=== PATIENT | male | born 1985 | race African-American/Black ===

== ENCOUNTER 2022-11-06 14:35 | Outpatient (OUT) | payer MEDICARE, MEDICAID, SELFPAY ==
[2022-11-06 15:44] LABS: Valproic Acid 74.5 ug/mL (50.0-100.0)
== END 2022-11-06 14:36 | disposition home or self-care (01) ==
LOC: LAB 14:40
PROVIDERS: PCP Family Medicine; Visit Provider Family Medicine
DX: R11.10 Vomiting, unspecified (principal); R53.83 Other fatigue; R68.89 Other general symptoms and signs
CPT/HCPCS: 36415; 80164

== ENCOUNTER 2022-11-15 07:57 | Outpatient (OUT) | payer MEDICARE, MEDICAID, SELFPAY ==
[2022-11-15 08:26] LABS: Basophils Percent Auto 0.3 % (0.2-2.0); Eosinophils Absolute Auto 0.1 10^3/uL (0.0-0.7); Eosinophils Percent Auto 1.5 % (0.9-7.0); Hematocrit 38.5 % (42.0-54.0); Hemoglobin 13.2 g/dL (14.0-18.0); Immature Granulocytes Abs Auto 0.01 10^3/uL (0.00-0.03); Immature Granulocytes Pct Auto 0.3 % (0.0-0.5); Lymphocytes Absolute Auto 2.1 10^3/uL (1.2-3.8); Lymphocytes Percent Auto 53.5 % (20.5-60.0); Mean Corpuscular HGB Conc 34.3 g/dL (29.9-35.2); Mean Corpuscular Hemoglobin 30.4 pg (25.9-34.0); Mean Corpuscular Volume 88.7 fL (80.0-94.0); Mean Platelet Volume 9.7 fL (9.5-13.5); Monocytes Absolute Auto 0.4 10^3/uL (0.3-0.8); Neutrophils Absolute Auto 1.3 10^3/uL (1.4-6.5); Neutrophils Percent Auto 33.4 % (43.0-75.0); Platelet Count 152 10^3/uL (150-450); Red Blood Count 4.34 10^6/uL (4.70-6.10); Red Cell Distribution Width 14.6 % (11.0-15.0); White Blood Count 3.9 10^3/uL (4.0-11.0)
[2022-11-15 09:35] LABS: Alanine Aminotransferase 27 U/L (16-63); Albumin Globulin Ratio 0.8; Albumin Level 3.1 g/dL (3.4-5.0); Alkaline Phosphatase 60 U/L (46-116); Anion Gap 9.6; Aspartate Amino Transferase 24 U/L (15-37); BUN Creatinine Ratio 6.5; Bilirubin Total 0.4 mg/dL (0.2-1.0); Carbon Dioxide 32.4 mmol/L (21.0-32.0); Chloride 103 mmol/L (98-107); Estimated GFR (African America >60 (>=60); Estimated GFR (Non-African Ame >60 (>=60); Globulin 3.9 g/dL; Glucose 91 mg/dL (74-106); Sodium 141 mmol/L (136-145)
== END 2022-11-15 07:58 | disposition home or self-care (01) ==
LOC: LAB 07:58
PROVIDERS: PCP Family Medicine; Visit Provider Family Medicine
DX: Z79.899 Other long term (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 (principal); K59.09 Other constipation
CPT/HCPCS: 36415; 80053; 85025

== ENCOUNTER 2022-11-28 10:05 | Outpatient (REF) | payer MEDICARE, MEDICAID, SELFPAY ==
[2022-11-28 11:25] LABS: Bilirubin Urine NEGATIVE (NEGATIVE); Blood Urine NEGATIVE (NEGATIVE); Clarity Urine CLEAR (CLEAR); Color Urine YELLOW (YELLOW); Glucose Urine UA NEGATIVE (NEGATIVE); Ketones Urine TRACE mg/dL (NEGATIVE); Leukocyte Esterase Urine NEGATIVE (NEGATIVE); Nitrite Urine NEGATIVE (NEGATIVE); Protein Urine NEGATIVE (NEG/TRACE)
[2022-11-28 11:29] LABS: Urine Microscopic Indicated NO
== END 2022-11-28 10:06 | disposition home or self-care (01) ==
LOC: LAB 10:05
PROVIDERS: PCP Family Medicine; Visit Provider Family Medicine
DX: R35.0 Frequency of micturition (principal); R39.15 Urgency of urination; R82.90 Unspecified abnormal findings in urine
CPT/HCPCS: 81003

== ENCOUNTER 2023-11-13 06:34 | Outpatient (OUT) | payer MEDICARE, MEDICAID, SELFPAY ==
[2023-11-13 06:54] LABS: Basophils Percent Auto 0.3 % (0.2-2.0); Eosinophils Percent Auto 0.6 % (0.9-7.0); Hematocrit 41.8 % (42.0-54.0); Hemoglobin 13.8 g/dL (14.0-18.0); Lymphocytes Absolute Auto 2.5 10^3/uL (1.2-3.8); Lymphocytes Percent Auto 39.8 % (20.5-60.0); Mean Corpuscular Hemoglobin 29.7 pg (25.9-34.0); Mean Corpuscular Volume 89.9 fL (80.0-94.0); Mean Platelet Volume 10.2 fL (9.5-13.5); Monocytes Absolute Auto 0.6 10^3/uL (0.3-0.8); Monocytes Percent Auto 8.8 % (1.7-12.0); Neutrophils Absolute Auto 3.1 10^3/uL (1.4-6.5); Neutrophils Percent Auto 50.5 % (43.0-75.0); Platelet Count 202 10^3/uL (150-450); Red Blood Count 4.65 10^6/uL (4.70-6.10); Red Cell Distribution Width 13.1 % (11.0-15.0); White Blood Count 6.2 10^3/uL (4.0-11.0)
[2023-11-13 07:41] LABS: Alanine Aminotransferase 18 U/L (16-63); Albumin Level 3.6 g/dL (3.4-5.0); Alkaline Phosphatase 120 U/L (46-116); Aspartate Amino Transferase 18 U/L (15-37); BUN Creatinine Ratio 7.6; Bilirubin Total 0.4 mg/dL (0.2-1.0); Calcium 8.8 mg/dL (8.5-10.1); Carbon Dioxide 29.7 mmol/L (21.0-32.0); Chloride 104 mmol/L (98-107); Cholesterol 136 mg/dL (<=200); Estimated GFR (African America >60 (>=60); Estimated GFR (Non-African Ame >60 (>=60); Globulin 3.5 g/dL; Glucose 101 mg/dL (74-106); HDL Cholesterol 45 mg/dL (40-60); Potassium 3.7 mmol/L (3.5-5.1); Sodium 143 mmol/L (136-145); Total Protein 7.1 g/dL (6.4-8.2); Triglycerides 85 mg/dL (<=150)
== END 2023-11-13 06:35 | disposition home or self-care (01) ==
LOC: LAB 06:34
PROVIDERS: PCP Family Medicine; Visit Provider Family Medicine
DX: F31.9 Bipolar disorder, unspecified (principal); Z79.899 Other long term (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
CPT/HCPCS: 36415; 80053; 80061; 82607; 83540; 85025

== ENCOUNTER 2024-03-10 14:04 | Emergency (ER) | payer MEDICARE, MEDICAID, SELFPAY ==
[2024-03-10] VITALS (45 sets, daily range): BP systolic 100–137; BP diastolic 64–89; PULSE 51–86; TEMP 35.7–36.6; O2SAT 78–100; BMI 25.1
--- NOTE | 2024-03-10 16:04 | ECG_ITS ---
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
--- NOTE | 2024-03-10 16:04 | XR_ITS ---
The [address] [address] Patient Name: RENA RUSH MRN: [id number] date: 1985 Sex: M Assigned Patient Location: ER Current Patient Location: ER Accession/Order Number: [id number] Exam Date: 03/10/2024 16:42 Report Date: 03/10/2024 17:38 At the request of: TAMMY GANNON Procedure: XR chest 1V EXAM: XR chest 1V at 1635 hours HISTORY: shaking COMPARISON: None. TECHNIQUE: AP supine portable chest x-ray FINDINGS: The heart is not enlarged and the vasculature is not distended. There is mild elevation of the left hemidiaphragm. No acute infiltrate, effusion or pneumothorax is identified. The osseous structures are grossly intact. XR/XR chest 1V IMPRESSION: No acute infiltrate or evidence of cardiac decompensation. Electronically authenticated by: DEMOND HATCH Date: 03/10/2024 17:38
--- NOTE | 2024-03-10 16:04 | CT_ITS ---
The [address] [address] Patient Name: RENA RUSH MRN: [id number] date: 1985 Sex: M Assigned Patient Location: ER Current Patient Location: ER Accession/Order Number: [id number] Exam Date: 03/10/2024 16:42 Report Date: 03/10/2024 17:06 At the request of: TAMMY GANNON Procedure: CT head/brain wo con EXAM: CT head/brain wo con HISTORY: Shaking episodes COMPARISON: None. TECHNIQUE: Axial CT scans through the head were obtained without IV contrast administration. Dose reduction techniques were achieved by using: automated exposure control and/or adjustment of mA and /or kV according to patient size and/or use of iterative reconstruction technique. FINDINGS: There is no acute intracranial hemorrhage or abnormal extra-axial fluid collection. No mass effect or midline shift is seen. There is no evidence of large acute territorial infarction. There is no hydrocephalus. To the limit of CT, the posterior fossa appears unremarkable. The calvaria and extra cranial soft tissues are unremarkable. The visualized orbits show no abnormality. The visualized paranasal sinuses show no air-fluid level. Mastoid air cells are clear. CT/CT head/brain wo con IMPRESSION: No acute intracranial process. Electronically authenticated by: ELENA RUFFIN Date: 03/10/2024 17:06
[2024-03-10] MEDS: KETAMINE HCL 500 MG/5 ML VIAL 250 MG IM (16:16)
--- NOTE | 2024-03-10 16:36 | ED_ITS ---
HPI HPI - General Adult General Stated complaint: CHILLS, GENERAL WEAKNESS Time Seen by Provider: 03/10/24 14:47 Source: medical record Mode of arrival: ambulance Limitations: language barrier and altered mental status History of Present Illness HPI narrative: Patient is a 38-year-old male who presented to the ER today with chief complaint of a shaking episode last week and this week. Patient has a moderate to severe MRDD, patient is not verbal. Patient last week had a shaking episode that might of lasts approximate 1 or 2 minutes and this was after a fire alarm or a lot of bells, sirens, noises were going off. Patient had a recent head injury that we are aware of. Today patient was sitting at a table and had another shaking episode that lasted for approximately 1 minute. A structural steel erection supervisor who is at bedside and gives a accurate history stated that she was not with the patient today, but she came down to see the patient when it was reported he was having a shaking episode and he had no postictal phase today or last week. Patient is at his current baseline. Patient has no signs of trauma, no other acute complaints at this time. No nausea, vomiting, diarrhea. Patient is not a good eater or drinker, this is normal at baseline. No abnormal vital signs. All systems are negative except as noted/marked. All systems reviewed and otherwise negative. Nurses note and vital signs reviewed and patient is not hypoxic. General: The patient appears well and in no apparent distress. Patient is resting comfortably on cart. Patient is not toxic, lethargic, or listless. Ashley ent is nonverbal. He is at his current baseline. Skin: Warm, dry, no pallor noted. There is no rash noted. No petechiae, purpura. Head: Normocephalic, atraumatic Eye: Normal conjunctiva, no drainage, EOMI. PERRL Ears, Nose, Mouth, and Throat: oral mucosa is moist. Nares patent. Mouth without vesicles. Cardiovascular: Regular Rate and Rhythm, no murmur, gallop, rub Respiratory: Patient is in no distress, no accessory muscle use, lungs are clear to auscultation, no wheezing, rales or rhonchi Back: non-tender, no CVA tenderness bilaterally to percussion. No CT LS midline pain. No grimace was noted on patient's face with palpation. GI: no tenderness to palpation, no masses appreciated. No rebound, guarding, or rigidity noted. No distention. No grimace was noted to patient's face during palpation. Musculoskeletal: Patient has full range of motion of all of the extremities, no motor, sensory, or focal neurological deficits Neurological: A&O x1, patient is nonverbal. Psychiatric: Cooperative Related Data Allergies Allergy/AdvReac Type Severity Reaction Status Date / Time No Known Drug Allergies Allergy Verified 03/10/24 14:23 Opioid HPI Opioid Management Most Recent Opioid Data: No Data to Display Exam Constitutional Vital Signs, click to edit/add: Last Vital Signs Temp 97.8 F 03/10/24 17:28 Pulse 80 03/10/24 18:15 Resp 14 03/10/24 17:14 BP 107/80 03/10/24 18:15 Pulse Ox 98 03/10/24 18:15 O2 Del Method Room Air 03/10/24 14:23 O2 Flow Rate 2 03/10/24 17:14 Course Vital Signs Vital signs: Vital Signs Temperature 96.2 F L 03/10/24 14:23 Pulse Rate 80 03/10/24 14:23 Respiratory Rate 16 03/10/24 14:23 Blood Pressure 100/64 03/10/24 14:23 Pulse Oximetry 100 03/10/24 14:23 Oxygen Delivery Method Room Air 03/10/24 14:23 Temperature 97.8 F 03/10/24 17:28 Pulse Rate 80 03/10/24 18:15 Respiratory Rate 14 03/10/24 17:14 Blood Pressure 107/80 03/10/24 18:15 Pulse Oximetry 98 03/10/24 18:15 Oxygen Delivery Method Room Air 03/10/24 14:23 Oxygen Delivery Flow Rate 2 03/10/24 17:14 Medical Decision Making MDM Narrative Medical decision making narrative: I initially spoke to the caregiver at bedside as a structural steel erection supervisor of the intermediate at [employer]. I then spoke to Mehrdad, patient's brother, guardian. It was decided with shared decision making that we would perform conscious sedation, with ketamine, and perform CT of the brain, x-ray, lab work to make sure not missing any new acute findings that would cause shaking episodes last week and today. TRISHA Ortez; spoke to Mehrdad as well, was a second verbal witness on the phone did allow conscious sedation and she spoke to Mehrdad as well Procedure note. Conscious sedation. The patient was placed on IV, O2, monitor, and pulse ox. Respiratory therapy was at bedside. Risk and benefits of procedure were gone over, paperwork was signed. Patient is aware of the risk of , disability, possible new fracture, neurovascular compromise, bleeding, infection, pain, unable to reduce the dislocation, unforeseen complications, respiratory difficulty or distress, airway compromise. Patient signed consent form. Patient was premedicated with 250 mg of intramuscular ketamine. CT of the brain, chest x-ray, urine, lab work showed no acute findings. 1830 at a conversation with patient's brother/guardian Mehrdad at discharge. Patient will follow-up with PCP for additional testing. Patient had no complications during procedure, patient was never hypoxic. Patient was on IV O2 monitor pulse ox and carbon oxide detector. Procedure went very well with IV, lab work, urine and CAT scan and imaging. Lab Data Lab results reviewed: Yes I reviewed the patient's lab results Labs: Lab Results 03/10/24 03/10/24 Range/Units 16:39 17:00 WBC 8.8 (4.0-11.0) 10^3/uL RBC 4.93 (4.70-6.10) 10^6/uL Hgb 14.8 (14.0-18.0) g/dL Hct 42.7 (42.0-54.0) % MCV 86.6 (80.0-94.0) fL MCH 30.0 (25.9-34.0) pg MCHC 34.7 (29.9-35.2) g/dL RDW 12.3 (11.0-15.0) % Plt Count 245 (150-450) 10^3/uL MPV 10.0 (9.5-13.5) fL Neut % (Auto) 76.9 H (43.0-75.0) % Lymph % (Auto) 17.3 L (20.5-60.0) % [place] % (Auto) 5.4 (1.7-12.0) % Eos % (Auto) 0.1 L (0.9-7.0) % Baso % (Auto) 0.2 (0.2-2.0) % Neut # (Auto) 6.8 H (1.4-6.5) 10^3/uL Lymph # (Auto) 1.5 (1.2-3.8) 10^3/uL [place] # (Auto) 0.5 (0.3-0.8) 10^3/uL Eos # (Auto) 0.0 (0.0-0.7) 10^3/uL Baso # (Auto) 0.0 (0.0-0.1) 10^3/uL Abs Immat Gran (auto) 0.01 (0.00-0.03) 10^3/uL Imm/Tot Granulo (auto) 0.1 (0.0-0.5) % Sodium 141 (136-145) mmol/L Potassium 4.3 (3.5-5.1) mmol/L Chloride 105 (98-107) mmol/L Carbon Dioxide 24.0 (21.0-32.0) mmol/L Anion Gap 16.3 BUN 16.0 (7.0-18.0) mg/dL Creatinine 1.12 (0.70-1.30) mg/dL Est GFR ( Amer) >60 (>=60 mL/min/1.73m^2) Est GFR (Non-Af Amer) >60 (>=60 mL/min/1.73m^2) BUN/Creatinine Ratio 14.3 Glucose 105 (74-106) mg/dL Calcium 9.4 (8.5-10.1) mg/dL Total Bilirubin 0.4 (0.2-1.0) mg/dL AST 25 (15-37) U/L ALT 15 L (16-63) U/L Alkaline Phosphatase 110 (46-116) U/L Total Creatine Kinase 71 (39-308) U/L Total Protein 7.2 (6.4-8.2) g/dL Albumin 3.5 (3.4-5.0) g/dL Globulin 3.7 g/dL Albumin/Globulin Ratio 0.9 Lipase 19.0 (16.0-77.0) U/L Urine Color Lt. yellow (YELLOW) Urine Clarity Clear (CLEAR) Urine pH 7.0 (5.0-9.0) Ur Specific [place] 1.020 (1.005-1.025) Urine Protein Negative (NEG/TRACE) mg/dL Urine Glucose (UA) Negative (NEGATIVE) mg/dL Urine Ketones Negative (NEGATIVE) mg/dL Urine Occult Blood Negative (NEGATIVE) Urine Nitrite Negative (NEGATIVE) Urine Bilirubin Negative (NEGATIVE) Urine Urobilinogen 0.2 (0.2-1.0) EU/dL Ur Leukocyte Esterase Negative (NEGATIVE) Urine RBC None seen (0-2) #/HPF Urine WBC None seen (NONE SEEN) #/HPF Ur Squamous Epith Cells None seen (NONE/RARE) #/LPF Urine Crystals None seen (None Seen) #/HPF Urine Bacteria Trace A (NONE SEEN) #/HPF Urine Casts None seen (NONE SEEN) #/LPF Urine Mucus None seen (NONE SEEN) Imaging Data CT scan - pelvis: Radiologist's impression: ITS Impressions Chest X-Ray 03/10/24 16:04 IMPRESSION: No acute infiltrate or evidence of cardiac decompensation. Electronically authenticated by: DEMOND HATCH Date: 03/10/2024 17:[address] 03/10/24 16:04 IMPRESSION: No acute intracranial process. Electronically authenticated by: ELENA RUFFIN Date: 03/10/2024 17:06 ECG Data Attestation: I personally reviewed and interpreted this ECG as follows: (EKG interpretation. Normal sinus rhythm at 71 beats a minute. Normal axis deviation. No acute ST elevation, no acute ectopy. QTc of 374. EKG reading early repull) Discharge Plan Discharge Clinical Impression: Episode of shaking Patient Disposition: Home, Self-Care Time of Disposition Decision: 18:33 Condition: Fair Print Language: Azeri Instructions: Tremors (ED), Procedural Sedation (ED) Additional Instructions: CT of the brain, chest x-ray, urine and lab testing showed no significant findings. Follow-up with PCP for additional testing as needed. Patient had conscious sedation in the ER with ketamine today. Education was given Referrals: MARCIAL MOSS DO [Primary Care Provider] - 1 week
[2024-03-10 16:50] LABS: Basophils Percent Auto 0.2 % (0.2-2.0); Eosinophils Percent Auto 0.1 % (0.9-7.0); Hematocrit 42.7 % (42.0-54.0); Hemoglobin 14.8 g/dL (14.0-18.0); Immature Granulocytes Abs Auto 0.01 10^3/uL (0.00-0.03); Immature Granulocytes Pct Auto 0.1 % (0.0-0.5); Lymphocytes Absolute Auto 1.5 10^3/uL (1.2-3.8); Lymphocytes Percent Auto 17.3 % (20.5-60.0); Mean Corpuscular HGB Conc 34.7 g/dL (29.9-35.2); Mean Corpuscular Volume 86.6 fL (80.0-94.0); Monocytes Absolute Auto 0.5 10^3/uL (0.3-0.8); Monocytes Percent Auto 5.4 % (1.7-12.0); Neutrophils Absolute Auto 6.8 10^3/uL (1.4-6.5); Neutrophils Percent Auto 76.9 % (43.0-75.0); Platelet Count 245 10^3/uL (150-450); Red Blood Count 4.93 10^6/uL (4.70-6.10); Red Cell Distribution Width 12.3 % (11.0-15.0); White Blood Count 8.8 10^3/uL (4.0-11.0)
[2024-03-10 17:14] LABS: Alanine Aminotransferase 15 U/L (16-63); Albumin Globulin Ratio 0.9; Albumin Level 3.5 g/dL (3.4-5.0); Alkaline Phosphatase 110 U/L (46-116); Anion Gap 16.3; Aspartate Amino Transferase 25 U/L (15-37); BUN Creatinine Ratio 14.3; Bilirubin Total 0.4 mg/dL (0.2-1.0); Calcium 9.4 mg/dL (8.5-10.1); Chloride 105 mmol/L (98-107); Creatine Kinase 71 U/L (39-308); Estimated GFR (African America >60 (>=60 mL/min/1.73m^2); Estimated GFR (Non-African Ame >60 (>=60 mL/min/1.73m^2); Globulin 3.7 g/dL; Glucose 105 mg/dL (74-106); Potassium 4.3 mmol/L (3.5-5.1); Sodium 141 mmol/L (136-145); Total Protein 7.2 g/dL (6.4-8.2)
[2024-03-10 17:18] LABS: Bilirubin Urine NEGATIVE (NEGATIVE); Blood Urine NEGATIVE (NEGATIVE); Clarity Urine CLEAR (CLEAR); Color Urine LT. YELLOW (YELLOW); Glucose Urine UA NEGATIVE (NEGATIVE); Ketones Urine NEGATIVE (NEGATIVE); Leukocyte Esterase Urine NEGATIVE (NEGATIVE); Nitrite Urine NEGATIVE (NEGATIVE); Protein Urine NEGATIVE (NEG/TRACE); Urobilinogen Urine 0.2 EU/dL (0.2-1.0)
[2024-03-10 17:25] LABS: Bacteria Urine TRACE #/HPF (NONE SEEN); Cast Seen? NONE SEEN #/LPF (NONE SEEN); Crystals Seen? None Seen #/HPF (None Seen); Mucus Urine NONE SEEN (NONE SEEN); RBC Urine NONE SEEN #/HPF (0-2); Squamous Epithelial Cell Urine NONE SEEN #/LPF (NONE/RARE); WBC Urine NONE SEEN #/HPF (NONE SEEN)
== END 2024-03-10 20:30 | disposition home or self-care (01) ==
PROVIDERS: Emergency Provider Emergency Medicine; PCP Family Medicine
DX: G25.89 Other specified extrapyramidal and movement disorders (principal); F72 Severe intellectual disabilities
CPT/HCPCS: 36415; 70450; 71045; 80053; 81001; 82550; 83690; 85025; 93005; 96372; 99285

== ENCOUNTER 2024-04-08 09:05 | Outpatient (OUT) | payer MEDICARE, MEDICAID, SELFPAY ==
[2024-04-08 09:19] LABS: Basophils Percent Auto 0.4 % (0.2-2.0); Eosinophils Absolute Auto 0.1 10^3/uL (0.0-0.7); Eosinophils Percent Auto 1.1 % (0.9-7.0); Hematocrit 41.9 % (42.0-54.0); Immature Granulocytes Abs Auto 0.01 10^3/uL (0.00-0.03); Immature Granulocytes Pct Auto 0.2 % (0.0-0.5); Lymphocytes Absolute Auto 2.3 10^3/uL (1.2-3.8); Lymphocytes Percent Auto 43.3 % (20.5-60.0); Mean Corpuscular HGB Conc 33.4 g/dL (29.9-35.2); Mean Corpuscular Hemoglobin 30.3 pg (25.9-34.0); Mean Corpuscular Volume 90.7 fL (80.0-94.0); Mean Platelet Volume 9.9 fL (9.5-13.5); Monocytes Absolute Auto 0.5 10^3/uL (0.3-0.8); Monocytes Percent Auto 9.3 % (1.7-12.0); Neutrophils Absolute Auto 2.4 10^3/uL (1.4-6.5); Neutrophils Percent Auto 45.7 % (43.0-75.0); Platelet Count 199 10^3/uL (150-450); Red Blood Count 4.62 10^6/uL (4.70-6.10); Red Cell Distribution Width 13.4 % (11.0-15.0); White Blood Count 5.3 10^3/uL (4.0-11.0)
--- OUTSIDE RECORDS SUMMARY | 2024-04-08 09:28 | XMS_ITS | CCD ---
Author Organization [facility] Care Team Providers Care Relocation Associate Name Role Phone LOAN ETIENNE I Admitting Unavailable LOAN ETIENNE I Attending Unavailable MARCIAL MOSS Primary Care Unavailable PROVIDER, UNKNOWN Attending Unavailable PROVIDER, UNKNOWN Admitting Unavailable Uday Quinteros DDS SDixon Unavailable Rigo Kevin DDS Unavailable [phone] Francisco Del Rio DDS Unavailable Uday Quinteros DDS S. Unavailable Rigo Kevin DDS Unavailable Francisco Del Rio DDS Unavailable ISA, DR MARCIAL Byrd Admitting Unavailable MOSS, DR MARCIAL Byrd Attending Unavailable MOSS, DR MARCIAL Byrd Consulting Unavailable MOSS, DR MARCIAL Byrd Primary Care Unavailable MOSS, DR MARCIAL Byrd Admitting Unavailable MOSS, DR MARCIAL Byrd Attending Unavailable MOSS, DR MARCIAL Byrd Primary Care Unavailable MOSSMARCIAL Primary Care Physician [phone] Diya Mcginnis Attending Unavaila Diya Abdi Attending Unavaila Diya Abdi Attending Unavaila ble Diya Mcginnis Attending Unavaila EAGLE Tenorio Attending Unavailable EAGLE WILKES Attending Unavailable Medications Current Medications Medication Drug Class(es) Dates Sig (Normalized) Sig (Original) aluminum hydroxide 200 mg / magnesium hydroxide 200 mg / simethicone 25 mg chewable tablet (1 source) Start: 07-30-2023 Mintox Plus oral tablet, chewable Refill(s) 0 Start Date: 07/30/23 Status: Ordered 12 hr buPROPion hydrochloride 100 mg extended release oral tablet (1 source) Aminoketone Start: 07-30-2023 buPROPion 100 mg ER Tab Refills(s) 0 Start Date: 07/30/23 Status: Ordered cloNIDine (2 sources) Central alpha-2 Adrenergic Agonist Start: 09-10-2009 clonidine BID, Refills(s) 0 Start Date: 09/10/09 Status: Ordered dicyclomine hydrochloride 10 mg oral capsule (1 source) Anticholinergic Start: 01-01-2023 End: 01-15-2023 take 1 capsule by mouth four times daily dicyclomine 10 mg Cap 10 mg = 1 cap(s), Oral, QID, X 14 day(s), # 56 cap(s), Refills(s) 0 Start Date: 01/01/23 Stop Date: 01/15/23 Status: Ordered Guanfacine (2 sources) Central alpha-2 Adrenergic Agonist Start: 09-10-2009 guanfacine Oral, Once a day (at bedtime), Refills(s) 0 Start Date: 09/10/09 Status: Ordered haloperidol 20 mg oral tablet (1 source) Typical Antipsychotic Start: 07-30-2023 haloperidol 20 mg oral tablet Refills(s) 0 Start Date: 07/30/23 Status: Ordered ibuprofen 600 mg oral tablet (2 sources) Nonsteroidal Anti-inflammatory Drug Start: 10-27-2009 take 1 tablet by mouth every six hours as needed for pain ibuprofen (MOTRIN) 600 MG tablet Take 1 Tab by mouth every 6 hours as needed for Pain. 30 3 10/27/2009 Active Enulose (2 sources) Osmotic Laxative Start: 09-10-2009 Enulose 10 gram, Oral, Daily, Refills(s) 0 Start Date: 09/10/09 Status: Ordered linaclotide 0.29 mg oral capsule (1 source) Guanylate Cyclase-C Agonist Start: 07-30-2023 Linzess 290 mcg oral capsule Refills(s) 0 Start Date: 07/30/23 Status: Ordered lisdexamfetamine dimesylate 70 mg oral capsule (1 source) Central Nervous System Stimulant Start: 07-30-2023 take 1 capsule by mouth once daily in the morning Vyvanse 70 mg oral capsule 70 mg, 1 cap(s), Oral, qAM, Refill(s) 0 Start Date: 07/30/23 Status: Ordered Loratadine (2 sources) Start: 09-10-2009 loratadine 10 mg, Refills(s) 0 Start Date: 09/10/09 Status: Ordered Metoprolol (2 sources) beta-Adrenergic Elías Start: 09-10-2009 metoprolol Refills(s) 0 Start Date: 09/10/09 Status: Ordered montelukast 10 mg oral tablet (1 source) Leukotriene Receptor Antagonist Start: 07-30-2023 montelukast 10 mg Tab Refills(s) 0 Start Date: 07/30/23 Status: Ordered Naltrexone (2 sources) Opioid Antagonist Start: 09-10-2009 naltrexone Refills(s) 0 Start Date: 09/10/09 Status: Ordered Zyprexa (2 sources) Atypical Antipsychotic Start: 09-10-2009 Zyprexa Refills(s) 0 Start Date: 09/10/09 Status: Ordered omeprazole 40 mg delayed release oral capsule (2 sources) Proton Pump Inhibitor Start: 01-01-2023 take 1 capsule by mouth once daily omeprazole 40 mg Cap-DR 40 mg = 1 cap(s), Oral, Daily, # 90 cap(s), Refills(s) 3 Start Date: 01/01/23 Status: Ordered POLYETHYLENE GLYCOL 3350 (2 sources) Osmotic Laxative Start: 09-10-2009 polyethylene glycol 3350 17 gram, Oral, Daily, Refill(s) 0 Start Date: 09/10/09 Status: Ordered Start: 09-10-2009 polyethylene g lycol 3350 17 gram, Oral, Daily, 0 Start Date: 09/10/09 Status: Ordered prochlorperazine 10 mg oral tablet (1 source) Phenothiazine Start: 07-30-2023 Compazine 10 m g oral tablet Refills(s) 0 Start Date: 07/30/23 Status: Ordered QUEtiapine 400 mg oral tablet (1 source) Atypical Antipsychotic Start: 07-30-2023 Seroque l 400 mg oral tablet Refills(s) 0 Start Date: 07/30/23 Status: Ordered Sertraline (2 sources) Serotonin Reuptake Inhibitor Start: 09-10-2009 sertraline Oral, Daily, Refills(s) 0 Start Date: 09/10/09 Status: Ordered Problems Problem Classification Problem Date Documented Da te Episodic/Chronic Abdominal hernia (3 sources) Diaphragmatic hernia; Translations: [Diaphragmatic hernia without obstruction or gangrene] Onset: 3 Episodic Anxiety disorders (2 sources) Obsessive-compulsive disorder 07-25-2013 Chronic Asthma (2 sources) Asthma 07-25-2013 Chronic Attention-deficit, conduct, and disruptive behavior disorders (2 sources) Attention deficit hyperactivity disorder 09-10-2009 Chronic Developmental disorders (2 sources) Intellectual functioning disability 07-25-2013 Chronic Disorders usually diagnosed in infancy, childhood, or adolescence (2 sources) Autistic disorder; Translations: [Autism spectrum disorder] 07-25-2013 Chronic Esophageal disorders (4 sources) Gastroesophageal reflux disease without esophagitis; Translations: [Gastro-esophageal reflux disease without esophagitis] Onset: 3 Chronic Essential hypertension (2 sources) Hypertensive disorder 07-25-2013 Chronic Gastroduodenal ulcer (except hemorrhage) (2 sources) Peptic ulcer 07-25-2013 Chronic Nausea and vomiting (3 sources) Vomiting; Translations: [Vomiting, unspecified] Onset: 3 Episodic Other aftercare (4 sources) Other jail (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; Translations: [OTH ECONOMIC FORECASTER CURRENT DRUG THERAPY] Onset: 3 Episodic Other gastrointestinal disorders (3 sources) Burping; Translations: [Eructation] Onset: 3 Episodic Other nutritional; endocrine; and metabolic disorders (2 sources) Loss of appetite; Translations: [Anorexia] Onset: 3 Episodic Other nutritional; endocrine; and metabolic disorders (1 source) Decrease in appetite 07-30-2023 Episodic Other upper respiratory disease (2 sources) Seasonal allergy 09-10-2009 Chronic Unclassified (2 sources) CHRONIC LEFT INFECTED GROIN CYST; Translations: [CHRONIC LEFT INFECTED GROIN CYST] Onset: 9 Results Test Name Value Interpretation Reference Range Facility Ambulatory Visit Summaryon 0 07-30-2023 Ambulatory Visit Summary RENA RUSH :1985 Visit Date:07/30/2023 Ambulatory Visit Instructions Your Diagnosis GERD [Gastroesophageal reflux disease] Poor appetite Vomiting Belching Your Care Team Attending Physician - Diya Mcginnis MD Primary Care Physician - MARCIAL MOSS DO This Is Your Medications List Al hydroxide/Mg hydroxide/simethicone (Mintox Plus oral tablet, chewable) buPROPion (buPROPion 100 mg ER Tab) clonidine guanfacine haloperidol (haloperidol 20 mg oral tablet) lactulose (Enulose) linaclotide (Linzess 290 mcg oral capsule) lisdexamfetamine (Vyvanse 70 mg oral capsule) loratadine metoprolol montelukast (montelukast 10 mg Tab) naltrexone olanzapine (Zyprexa) omeprazole (omeprazole 40 mg Cap-DR) polyethylene glycol 3350 prochlorperazine (Compazine 10 mg oral tablet) quetiapine (Seroquel 400 mg oral tablet) sertraline Discharge Vitals Height 180 cm Height 71 in Weight 68 kg Weight 149.6 lb BMI 20.99 Medications What How Much When Instructions Unchanged Al hydroxide/ Mg hydroxide/ simethicone (Mintox Plus oral tablet, chewable) Unchanged buPROPion (buPROPion 100 mg ER Tab) Unchanged clonidine 2 times a day Unchanged guanfacine By Mouth Once a day (at bedtime) Unchanged haloperidol (haloperidol 20 mg oral tablet) Unchanged lactulose (Enulose) 10 Gram By Mouth Every day Unchanged linaclotide (Linzess 290 mcg oral capsule) Unchanged lisdexamfetamine (Vyvanse 70 mg oral capsule) 1 Capsules By Mouth Once a day (in the morning) Unchanged loratadine 10 Milligram Unchanged metoprolol Unchanged montelukast (montelukast 10 mg Tab) Unchanged naltrexone Unchanged olanzapine (Zyprexa) Unchanged omeprazole (omeprazole 40 mg Cap-DR) 1 Capsules By Mouth Every day Unchanged polyethylene glycol 3350 17 Gram By Mouth Every day Unchanged prochlorperazine (Compazine 10 mg oral tablet) Unchanged quetiapine (Seroquel 400 mg oral tablet) Unchanged sertraline By Mouth Every day Allergies No Known Allergies Problems Ongoing - Any problem that you are currently receiving treatment for. ADHD - Attention deficit disorder with hyperactivity ASTHMA Autistic disorder Belching GERD [Gastroesophageal reflux disease] Hiatal hernia HYPERTENSION Mental retardation Obsessive compulsive disorder Peptic ulcer disease Poor appetite Seasonal allergy Vomiting Patient Survey You may receive a survey via text or e-mail asking about your office visit. Please share your experience with us by completing your survey. We appreciate your feedback and thank you for choosing us for your care. Jeff Lantigua [facility] Gastroenterology Office/Clin ic Noteon 07-30-2023 Gastroenterology Office/Clinic Note Chief Complaint GERD, poor appetite, HH, vomiting and belching HPI Staff Patient is a(n) 38 year old male who presents today for a(n) 7 month follow up. Still having poor appetite and weight loss. His diet is mechanical soft and they feel that the texture is not appealing. Patient does not do well with physical touch so I did not attempt blood pressure today for the safety of staff and patient. Last visit 01/01/23 w/Dr. Mcginnis: Assessment/Plan 1. GERD [Gastroesophageal reflux disease] (K21.9: Gastro-esophageal reflux disease without esophagitis) We will start omeprazole, it is very hard to tell if he is really having heartburn or not 2. Hiatal hernia (K44.9: Diaphragmatic hernia without obstruction or gangrene) 3. Poor appetite (R63.0: Anorexia) Improved significantly, most likely was due to underlying gastroenteritis That is resolving Bentyl as needed PPI We discussed imaging and EGD, but given the significant improvement, will likely not be needed He had recent CBC and CMP that were all normal locally 4. Vomiting (R11.10: Vomiting, unspecified) Resolved 5. Belching (R14.2: Eructation) Resolved History of Present Illness per healthcare medicine worker, depends on the kind of food whether he likes it or not, the brother also reported to all regurgitated food since he was a kid which not changed Omeprazole seems to be helping No new symptoms no issues he is eating fine Review of Systems PHQ Score Initial Depression Screen Score: 0 SCORE Physical Exam Vitals & Measurements HT: 71 in HT: 180 cm WT: 68 kg WT: 149.6 lb BMI: 20.99 Assessment/Plan 1. GERD [Gastroesophageal reflux disease] (K21.9: Gastro-esophageal reflux disease without esophagitis) Hard to tell, will keep omeprazole, no issues, currently eating well 2. Poor appetite (R63.0: Anorexia) Improved 3. Vomiting (R11.10: Vomiting, unspecified) Resolved, brother reported he always had regurgitation since he was a kid which not changed, but if he eats the food he likes he does well 4. Belching (R14.2: Eructation) Follow-up No qualifying data available Problem List/Past Medical History Ongoing ADHD - Attention deficit disorder with hyperactivity ASTHMA Autistic disorder Belching GERD [Gastroesophageal reflux disease] Hiatal hernia HYPERTENSION Mental retardation Obsessive compulsive disorder Peptic ulcer disease Poor appetite Seasonal allergy Vomiting Historical No qualifying data Medications buPROPion 100 mg ER Tab clonidine, BID, Not taking Compazine 10 mg oral tablet Enulose, 10 gm, Oral, Daily, Not taking guanfacine, Oral, Once a day (at bedtime) haloperidol 20 mg oral tablet Linzess 290 mcg oral capsule loratadine, 10 mg metoprolol Mintox Plus oral tablet, chewable montelukast 10 mg Tab naltrexone omeprazole 40 mg Cap-DR, 40 mg= 1 cap(s), Oral, Daily, 3 refills polyethylene glycol 3350, 17 gm, Oral, Daily Seroquel 400 mg oral tablet sertraline, Oral, Daily, Not taking Vyvanse 70 mg oral capsule, 70 mg= 1 cap(s), Oral, qAM Zyprexa, Not taking Allergies No Known Allergies Social History Alcohol - Denies Alcohol Use, 01/01/2023 Substance Abuse - Denies Substance Abuse, 01/01/2023 Tobacco - Denies Tobacco Use, 01/01/2023 Immunizations Vaccine Date Status Comments diphtheria/pertussis, acel/tetanus adult 06/25/2023 Recorded influenza virus vaccine, inactivated 05/08/2023 Recorded influenza virus vaccine, inactivated 03/01/2022 Recorded SARS-CoV-2 (COVID-19) [id number] 03/01/2022 Recorded 2022-12-06: TPVALL influenza virus vaccine, inactivated 03/09/2021 Recorded SARS-CoV-2 (COVID-19) mRNA BNT-162b2 vax 03/09/2021 Recorded 2022-12-06: TPV3 SARS-CoV-2 (COVID-19) mRNA BNT-162b2 vax 06/15/2020 Recorded 2022-12-06: TPVAL SARS-CoV-2 (COVID-19) mRNA BNT-162b2 vax 05/25/2020 Recorded 2022-12-06: TPVAL influenza virus vaccine, inactivated 02/18/2020 Recorded influenza virus vaccine, inactivated 03/19/2019 Recorded influenza virus vaccine, inactivated 02/20/2018 Recorded influenza virus vaccine, inactivated 03/07/2017 Recorded influenza virus vaccine, inactivated 03/04/2015 Recorded diphtheria/pertussis, acel/tetanus adult 01/30/2013 Recorded influenza, whole 03/05/2008 Recorded influenza virus vaccine, inactivated 03/13/2006 Recorded Td(adult) unspecified formulation 01/28/2003 Recorded measles/mumps/rubella virus vaccine 01/03/2000 Recorded hepatitis B pediatric vaccine 07/03/1995 Recorded hepatitis B pediatric vaccine 01/25/1995 Recorded hepatitis B pediatric vaccine 12/21/1994 Recorded poliovirus vaccine, inactivated 01/27/1993 Recorded DTaP, unspecified formulation 01/27/1993 Recorded poliovirus vaccine, inactivated 04/02/1990 Recorded Hib, unspecified formulation 04/02/1990 Recorded poliovirus vaccine, inactivated 01/18/1989 Recorded measles/mumps/rubella virus vaccine 01/18/1989 Recorded poliovirus vaccine, inactivated 1987 Recorded (more content not included)... [facility] Comment on above: Result Comment: Elec tronically Signed By: Ras BARBOUR, Diya Baxter\.br\Date and Time Signed: 07/30/23 11:52 EDT [facility] 07-29 [facility] Records [id number] .00TIFF [facility] Ambulatory Visit Summaryon 0 01-01-2023 Ambulatory Visit Summary RENA RUSH :1985 Visit Date:01/01/2023 Ambulatory Visit Instructions Your Diagnosis GERD [Gastroesophageal reflux disease] Hiatal hernia Poor appetite Vomiting Belching Your Care Team Attending Physician - Ras BARBOUR, Diya Baxter Primary Care Physician - MARCIAL MOSS DO This Is Your Medications List clonidine dicyclomine (dicyclomine 10 mg Cap) guanfacine lactulose (Enulose) loratadine metoprolol naltrexone olanzapine (Zyprexa) omeprazole (omeprazole 40 mg Cap-DR) polyethylene glycol 3350 sertraline [Image Removed: STOP]Stop taking these medications esomeprazole (Nexium) ranitidine Discharge Vitals Height 180 cm Height 71 in Weight 71.4 kg Weight 157.08 lb BMI 22.04 What to do next You Need to Complete the Following CBC w/ Auto Diff, Blood, Routine collect, 01/01/23, Order for future visit, Lab Collect, Poor appetite, Not Required, Print Label By Order Location Comprehensive Metabolic Panel, Blood, Routine collect, 01/01/23, Order for future visit, Lab Collect, Poor appetite, Not Required, Print Label By Order Location Medications What How Much When Instructions New dicyclomine (dicyclomine 10 mg Cap) 1 Capsules By Mouth 4 times a day Duration: 14 Days Printed Prescription New omeprazole (omeprazole 40 mg Cap-DR) 1 Capsules By Mouth Every day Refills: 3 Printed Prescription Unchanged clonidine 2 times a day Unchanged guanfacine By Mouth Once a day (at bedtime) Unchanged lactulose (Enulose) 10 Gram By Mouth Every day Unchanged loratadine 10 Milligram Unchanged metoprolol Unchanged naltrexone Unchanged olanzapine (Zyprexa) Unchanged polyethylene glycol 3350 17 Gram By Mouth Every day Unchanged sertraline By Mouth Every day What When Comments Stop Taking esomeprazole (Nexium) Every day Stop Taking ranitidine Allergies No Known Allergies Problems Ongoing - Any problem that you are currently receiving treatment for. ADHD - Attention deficit disorder with hyperactivity ASTHMA Autistic disorder GERD [Gastroesophageal reflux disease] Hiatal hernia HYPERTENSION Mental retardation Obsessive compulsive disorder Peptic ulcer disease Seasonal allergy Normal [facility] Gastroenterology Office/Clin ic Noteon 01-01-2023 Gastroenterology Office/Clinic Note Chief Complaint GERD, HH, poor appetite, vomiting, belching HPI Staff Patient is a 37 year old male who was referred by Isa for GERD, HH, vomiting, belching and refusing to eat. Patient is non-verbal and has brother with him today to discuss POC. Has been going on for about a month. Appetite has gotten slightly better in the last week. (2 out of 3 meals in the last week). Did not retrieve vitals d/t patient being agitated and aggressive today. EGD 03/04/2013 @ [facility]: 1. Biopsies taken from the small bowel. 2. Diffuse gastritis which is mild degree, biopsy taken for histology. Pathology: SPECIMEN A : SMALL BOWEL, BIOPSY: SMALL INTESTINAL TYPE MUCOSA DEMONSTRATING NO SIGNIFICANT HISTOPATHOLOGIC FEATURES THE FEATURES OF SPRUE ARE NOT IDENTIFIED SPECIMEN B : STOMACH, BIOPSY: MILD CHRONIC INACTIVE GASTRITIS WITH FOCAL FEATURES OF REACTIVE TYPE GASTROPATHY HELICOBACTER PYLORI MICROORGANISMS ARE NOT IDENTIFIED Repeat EGD done at [facility] 08/06/2014. EGD: Retropharyngeal area was grossly normal appearing. Esophagus: normal. TERTIARY CONTRACTIONS WERE SEEN Stomach: Fundus: abnormal: SMALL POLYP WAS BIOPSIES SMALL AMOUNT OF RETAINED FOOD WAS SEEN Body: abnormal: ABOVE AND GASTRITIS Antrum: abnormal: MODERATE GASTRITIS WAS BIOPSIED Pathology: 1. STOMACH, BIOPSY (ANTRUM): - MILD CHRONIC GASTRITIS. 2. STOMACH, BIOPSY (POLYP): - FUNDIC GLAND POLYP. Labs completed at outside facility on 11/15/22. Low: WBC, RBC, Hg, Hct History of Present Illness He has severe underlying autism, therefore, history was very limited and obtained from brother and career services coordinator 2 weeks ago he had decreased appetite, but now improved 80% in the last week Has normal bm, no v/f/c No alarming symptoms, overall he is improving significantly Review of Systems Could not be obtained Physical Exam Vitals & Measurements HT: 71 in HT: 180 cm WT: 71.4 kg WT: 157.08 lb BMI: 22.04 Could not be obtained Assessment/Plan 1. GERD [Gastroesophageal reflux disease] (K21.9: Gastro-esophageal reflux disease without esophagitis) We will start omeprazole, it is very hard to tell if he is really having heartburn or not 2. Hiatal hernia (K44.9: Diaphragmatic hernia without obstruction or gangrene) 3. Poor appetite (R63.0: Anorexia) Improved significantly, most likely was due to underlying gastroenteritis That is resolving Bentyl as needed PPI We discussed imaging and EGD, but given the significant improvement, will likely not be needed He had recent CBC and CMP that were all normal locally 4. Vomiting (R11.10: Vomiting, unspecified) Resolved 5. Belching (R14.2: Eructation) Resolved Follow-up No qualifying data available Problem List/Past Medical History Ongoing ADHD - Attention deficit disorder with hyperactivity ASTHMA Autistic disorder GERD [Gastroesophageal reflux disease] Hiatal hernia HYPERTENSION Mental retardation Obsessive compulsive disorder Peptic ulcer disease Seasonal allergy Historical No qualifying data Medications clonidine, BID Enulose, 10 gm, Oral, Daily guanfacine, Oral, Once a day (at bedtime) loratadine, 10 mg metoprolol naltrexone Nexium, Oral, Daily polyethylene glycol 3350, 17 gm, Oral, Daily ranitidine sertraline, Oral, Daily Zyprexa Allergies No Known Allergies Social History Alcohol - Denies Alcohol Use, 01/01/2023 Substance Abuse - Denies Substance Abuse, 01/01/2023 Tobacco - Denies Tobacco Use, 01/01/2023 Immunizations Vaccine Date Status Comments influenza virus vaccine, inactivated 03/01/2022 Recorded SARS-CoV-2 (COVID-19) [id number] 03/01/2022 Recorded 2022-12-06: TPVALL influenza virus vaccine, inactivated 03/09/2021 Recorded SARS-CoV-2 (COVID-19) mRNA BNT-162b2 vax 03/09/2021 Recorded 2022-12-06: TPV3 SARS-CoV-2 (COVID-19) mRNA BNT-162b2 vax 06/15/2020 Recorded 2022-12-06: TPVAL SARS-CoV-2 (COVID-19) mRNA BNT-162b2 vax 05/25/2020 Recorded 2022-12-06: TPVAL influenza virus vaccine, inactivated 02/18/2020 Recorded influenza virus vaccine, inactivated 03/19/2019 Recorded influenza virus vaccine, inactivated 02/20/2018 Recorded influenza virus vaccine, inactivated 03/07/2017 Recorded influenza virus vaccine, inactivated 03/04/2015 Recorded diphtheria/pertussis, acel/tetanus adult 01/30/2013 Recorded influenza, whole 03/05/2008 Recorded influenza virus vaccine, inactivated 03/13/2006 Recorded Td(adult) unspecified formulation 01/28/2003 Recorded measles/mumps/rubella virus vaccine 01/03/2000 Recorded hepatitis B pediatric vaccine 07/03/1995 Recorded hepatitis B pediatric vaccine 01/25/1995 Recorded hepatitis B pediatric vaccine 12/21/1994 Recorded poliovirus vaccine, inactivated 01/27/1993 Recorded DTaP, unspecified formulation 01/27/1993 Recorded poliovirus vaccine, inactivated 04/02/1990 Recorded Hib, unspecified formulation 04/02/1990 Recorded poliovirus vacci (more content not included)... Normal [facility] Comment on above: Result Comment: Elec tronically Signed By: Ras BARBOUR, Diya Baxter\.br\Date and Time Signed: 01/01/23 09:14 EDT Historical Records Officeon 12-06-2022 Historical Records Office [id number] .[id number]:127 Normal [facility] Historical Records Office [id number] .00CD:127 Normal [facility] Historical Records Office [id number] .00CD:127 Normal [facility] Physician Referralon 023 Physician Referral [id number] .00CD:127 Normal [facility] Physician Referral [id number] .00CD:127 Normal [facility] DEPAKENE/ VALPROIC ACIDon DEPAKENE 64.0 ug/ml Normal 50.0-100.0 [facility] Comment on above: Performed By: #### V ALP #### [facility] [address] [address] [address] Madiha Medina Progress Noteson 09-23-2021 [employer] Authentication Interface Message Text ----- Thursday, September 23, 2021 at 1:00:26 PM ----- ----- Provider: [id number] Irene -- Clinic: [place] ----- [facility], Pt is ready for tx. Pt presents for examination. Pt is ID and non-verbal. Pt is aggressive and patient care provider was taken to the back room to keep pt away from others. Pt is edentulous and Dr. Bose examined the gums and did not see of feel any signs of infection. Advised to return for exams on as need basis. Bhakti MICHELLE/Dr. Bose [place]. EXAM ----- Signed on Thursday, September 23, 2021 at 4:02:34 PM ----- ----- Provider: [id number] Azam Dinero DMD -- Clinic: [place] ----- Normal [facility] Surgical Pathologyon 019 Surgical Pathology (NOTE) [id number] [facility] ANATOMIC PATHOLOGY [address] [place] [id number] SURGICAL PATHOLOGY CONSULTATION Patient Name: RENA RUSH [facility] Rec: [id number] Path Number: [id number] Collected: 05/30/2018 Received: 05/31/2018 Reported: 06/03/2018 15:31 -- Diagnosis -- SKIN TISSUES, EXCISION (LEFT GROIN): - RUPTURED EPIDERMAL CYST WITH MARKED INFLAMMATORY REACTION. Jessi Rudd M.D. Electronically Signed Out [facility]/06/03/2018 Clinical Information Pre-op Diagnosis: CHRONIC LEFT INFECTED GROIN CYST Operative Findings: LEFT GROIN MASS Operation Performed: GROIN EXPLORATION Source of Specimen 1: LEFT GROIN MASS Gross Description [facility] [place] LEFT GROIN MASS Fragments of brown gonzáles skin and subcutaneous tissue with areas of granularity, 2.8 x 2.2 x 0.5 cm. in aggregate. Entirely. 1cs dw Microscopic Description Microscopic examination performed. Normal [facility] Comment on above: Performed By: #### P PPVS #### [employer] [address] [place] [id number] Tape Folding Machine Operator: River Rudd MD Encounters Encounter Date Encounter Type Care Provider Facility Start: 01-01-2024 End: 01-01-2024 ambulatory EAGLE WILKES Not Available Start: 07-30-2023 End: 07-31-2023 ambulatory Keane Talal Sarmini [facility] Start: 07-30-2023 End: 07-30-2023 Patient encounter procedure Keane Talal Sarmini [facility] Start: 07-09-2023 End: 07-10-2023 ambulatory Keane Johnathanal Sarmini Facility:[facility] Start: 06-12-2023 End: 06-12-2023 ambulatory EAGLE WILKES Not Available Start: 01-01-2023 End: 01-02-2023 ambulatory Keane Talal Sarmini Facility:[facility] Start: 01-01-2023 End: 01-01-2023 Patient encounter procedure Diya Mcginnis [facility] Start: 12-28-2022 End: 12-29-2022 ambulatory Diya Mcginnis Facility:[facility] Start: 12-05-2022 ambulatory Diya Mcginnis Facili ty:[facility] Start: 10-11-[address] MARCIAL MOSS Fac ility:[facility] Start: 08-31-2022 End: 09-01-[address] MARCIAL MOSS Facility:[facility] Start: 08-19-2022 Letter encounter Uday Quinteros DDS Work Phone: [facility] Start: 11-19-2021 Letter encounter Uday Quinteros DDS Work Phone: [facility] Start: 09-23-2021 End: 09-26-2021 ambulatory UNKNOWN PROVIDER Facility:[facility] Start: 05-30-2018 End: 05-30-2018 Patient encounter procedure LOANJAZZ ETIENNE [facility] Procedures Date Procedure Procedure Detail Performing Clinician Start: 05-30-2018 DISCHARGE PATIENT JAMAICA PAIGE Start: 05-30-2018 SURGICAL PATHOLOGY DAPHNERenetta CARLEY Plan of Treatment Date Care Activity Detail Author Start: 2037 Shingles (RZV) Vaccine (1 of 2) Shingles (RZV) Vaccine (1 of 2) [facility] Start: 02-07-2023 End: 02-07-2023 Patient encounter procedure 02/07/2023 Procedure Visit Dentistry Jose Dinero, DMD [address] [place] [address] [facility] Start: 01-30-2023 Tetanus vaccination Tetanus (Td or Tdap) Booster [facility] Start: 2022 Lipid panel Cholesterol [facility] Start: 12-12-2021 Influenza vaccination Influenza Vaccine (#1) [facility] Start: 05-04-2021 COVID-19 Vaccine (4 - Booster for Pfizer series) COVID-19 Vaccine (4 - Booster for Pfizer series) [facility] Start: 2005 Hepatitis C screening Hepatitis C Antibody [facility] Start: 2002 HIV screening HIV Test [facility] Immunizations Immunization Date Immunization Notes Care Provider Nazanin argueta 06-25-2023 tetanus toxoid, reduced diphtheria toxoid, and acellular pertussis vaccine, adsorbed Keane Sarmini [facility] 05-08-2023 influenza virus vaccine, unspecified formulation Keane Sarmini [facility] 03-01-2022 influenza virus vaccine, unspecified formulation Keane Sarmini [facility] 03-01-2022 SARS-CoV-2 (COVID-19 ) [id number] Keane Sarmini [facility] Comment on above: Result Comment: 2022: TPVALL 03-09-2021 influenza, injectabl e, quadrivalent, preservative free Uday Butriy DDS Work Phone: [facility] 03-09-2021 SARS-CoV-2 (COVID-19 ) mRNA BNT-162b2 vax Keane Sarmini [facility] Comment on above: Result Comment: 2022: TPV3 03-09-2021 influenza virus vaccine, unspecified formulation Uday Butriy DDS Work Phone: [facility] 06-15-2020 Pfizer (12+ yrs) SARS-COV-2 (COVID-19) vaccine, mRNA, spike protein, LNP, pres. free, 30 mcg/0.3mL dose ([id number]) Uday Butriy DDS Work Phone: [facility] Comment on above: Result Comment: 2022: TPVAL 05-25-2020 Pfizer (12+ yrs) SARS-COV-2 (COVID-19) vaccine, mRNA, spike protein, LNP, pres. free, 30 mcg/0.3mL dose (CTE=167) Uday Butriy DDS Work Phone: [facility] Comment on above: Result Comment: 2022: TPVAL 02-18-2020 influenza virus vaccine, unspecified formulation Keane Sarmini [facility] 02-18-2020 influenza, injectabl e, quadrivalent, preservative free Uday Butriy DDS Work Phone: [facility] 03-19-2019 influenza virus vaccine, unspecified formulation Keane Sarmini [facility] 03-19-2019 influenza, injectabl e, quadrivalent, contains preservative Uday Butriy DDS Work Phone: [facility] 02-20-2018 influenza virus vaccine, unspecified formulation Keane Sarmini [facility] 02-20-2018 influenza, injectabl e, quadrivalent, preservative free Uday Butriy DDS Work Phone: [facility] 03-07-2017 influenza virus vaccine, unspecified formulation Keane Sarmini [facility] 03-07-2017 influenza, injectabl e, quadrivalent, contains preservative Uday Butriy DDS Work Phone: [facility] 03-04-2015 influenza virus vaccine, unspecified formulation Keane Sarmini [facility] 03-04-2015 influenza, injectabl e, quadrivalent, preservative free Uday Butriy DDS Work Phone: [facility] 01-30-2013 tetanus toxoid, reduced diphtheria toxoid, and acellular pertussis vaccine, adsorbed Uday Butriy DDS Work Phone: [facility] 03-31-2009 novel [id number], preservative-free, injectable Uday Butriy DDS Work Phone: [facility] 03-05-2008 influenza virus vaccine, whole virus Uday Butriy DDS Work Phone: [facility] 03-05-2008 influenza, whole Keane Sa rmini [facility] 03-13-2006 influenza virus vaccine, unspecified formulation Keane Sarmini [facility] 03-13-2006 influenza, seasonal, injectable Uday Butriy DDS Work Phone: [facility] 01-28-2003 TD(adult) unspecifie d formulation; Translations: [Td(adult) unspecified formulation] Uday Butriy DDS Work Phone: [facility] 01-03-2000 measles, mumps and rubella virus vaccine Uday Butriy DDS Work Phone: [facility] 07-03-1995 hepatitis B vaccine, pediatric or pediatric/adolescent dosage Uday Butriy DDS Work Phone: [facility] 01-25-1995 hepatitis B vaccine, pediatric or pediatric/adolescent dosage Uday Butriy DDS Work Phone: [facility] 12-21-1994 hepatitis B vaccine, pediatric or pediatric/adolescent dosage Uday Butriy DDS Work Phone: [facility] 01-27-1993 diphtheria, tetanus toxoids and acellular pertussis vaccine, unspecified formulation Uday Butriy DDS Work Phone: [facility] 01-27-1993 DTaP, unspecified formulation Keane Sarmini [facility] 01-27-1993 poliovirus vaccine, inactivated Uday Butriy DDS Work Phone: [facility] 01-27-1993 poliovirus vaccine, unspecified formulation Keane Sarmini [facility] 04-02-1990 diphtheria, tetanus toxoids and pertussis vaccine Uday Butriy DDS Work Phone: [facility] 04-02-1990 haemophilus influenz ae type b vaccine, conjugate unspecified formulation Uday Butriy DDS Work Phone: [facility] 04-02-1990 Hib, unspecified formulation Keane Sarmini [facility] 04-02-1990 poliovirus vaccine, inactivated Uday Butriy DDS Work Phone: [facility] 04-02-1990 poliovirus vaccine, unspecified formulation Keane Sarmini [facility] 01-18-1989 diphtheria, tetanus toxoids and pertussis vaccine Uday Butriy DDS Work Phone: [facility] 01-18-1989 measles, mumps and rubella virus vaccine Uday Butriy DDS Work Phone: [facility] 01-18-1989 poliovirus vaccine, inactivated Uday Butriy DDS Work Phone: [facility] 01-18-1989 poliovirus vaccine, unspecified formulation Keane Sarmini [facility] 1987 diphtheria, tetanus toxoids and pertussis vaccine Uday Butriy DDS Work Phone: [facility] 1987 haemophilus influenz ae type b vaccine, conjugate unspecified formulation Uday Butriy DDS Work Phone: [facility] 1987 Hib, unspecified formulation Keane Sarmini [facility] 1987 poliovirus vaccine, inactivated Uday Quinteros DDS Work Phone: [facility] 1987 poliovirus vaccine, unspecified formulation Diya Mcginnis [facility] Payers Date Payer Category Payer Medicare [id number] 2007 Medicare MEDICARE MEDICAR E PART B [id number] 2007-Present 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 1987 Unknown [id number] 1987 Unknown [id number] 1987 Unknown [id number] 1987 Unknown [id number] 1987 Unknown [id number] 1987 Unknown [id number] 1987 Unknown [id number] 1987 Unknown [id number] 1959 Medicaid [id number] 1959 Medicare [id number] Unknown [id number] Unknown [id number] Social History Date Type Detail Facility Tobacco smoking status [facility]: [facility] No Smoking Status Entered [facility] Sex Assigned At Male [facility] Functional Status Date Assessment Result Facility 07-30-2023 Functional Status N/A [facility] 01-01-2023 Functional Status N/A [facility] Evaluation + Plan note 01-01-2023 Laboratory Note Date & Type Note Facility 01-01-2023 Evaluation + Plan note Future Scheduled TestsCBC w/ Auto Diff 01/01/23Comprehensive Metabolic Panel 01/01/23 [facility] Evaluation + Plan note Laboratory Note Date & Type Note Facility Evaluation + Plan note Future Appointments Appointment Date:07/09/2023 08:45:00 AM Scheduled Provider:Diya Mcginnis MD Location:[facility] [place] [place] [facility] Appointment Type:[facility] Follow Up Future Scheduled TestsCBC w/ Auto Diff 01/01/23Comprehensive Metabolic Panel 01/01/23 [facility] Hospital course Narrative Note Date & Type Note Facility Hospital course Narrative No data available for this section [facility] Hospital Discharge instructions Note Date & Type Note Facility Hospital Discharge instructions No data available for this section [facility] Progress note Note Date & Type Note Facility Progress note No data available for this section [facility] Summary Purpose Family History No Family History Records FoundNo Family History Records FoundNo Family History Records Found No data available for this section No Family History Records FoundNo Family History Records Found Advance Directives No Advanced Directives Records FoundNo Advanced Directives Records FoundNo Advanced Directives Records FoundNo Advanced Directives Records FoundNo Advanced Directives Records Found Additional Source Comments (unrecognized sect ion and content) No Status Records FoundNo Status Records FoundNo Status Records FoundNo Status Records FoundNo Status Records Found INFORMATION SOURCE (unrecogn ized section and content) DATE CREATED AUTHOR [facility]/2018 [facility] DATE CREATED AUTHOR AUTHOR'S ORGANIZ ATION 09/29/2021 [facility] DATE CREATED AUTHOR AUTHOR'S ORGANIZ ATION 10/20/2022 [facility] DATE CREATED AUTHOR AUTHOR'S ORGANIZ ATION 07/31/2023 [facility] DATE CREATED AUTHOR AUTHOR'S ORGANIZ ATION 01/02/2024 [facility] [employer] Care Teams (unrecognized sec tion and content) Relocation Associate Relationship Specialty Start Date End Date Uday Quinteros DDS 08/15/10 Rigo Kevin DDS [address] [place] [address] 08/15/10 Francisco Del Rio DDS [address] [place] [address] Resident Dentistry 02/17/20 Relocation Associate Relationship Specialty Start Date End Date Uday Quinteros DDS 08/15/10 Rigo Kevin DDS [address] [place] [address] 08/15/10 Francisco Del Rio DDS [address] [place] [id number] Resident Dentistry 02/17/20 FOR RECORDS PERTAINING TO PATIENTS WHO ARE OR HAVE BEEN ENROLLED IN A CHEMICAL DEPENDENCY/SUBSTANCEABUSE PROGRAM, SOME INFORMATION MAY BE OMITTED. This clinical summary was aggregated from multiple sources. Caution should be exercised in using it in the provision of clinical care. This summary normalizes information from multiple sources, and as a consequence, information in this document may materially change the coding, format and clinical context of patient data. In addition, data may be omitted in some cases. CLINICAL DECISIONS SHOULD BE BASED ON THE PRIMARY CLINICAL RECORDS. [facility] provides no warranty or guarantee of the accuracy or completeness of information in this document.
[2024-04-08 10:53] LABS: Alanine Aminotransferase 24 U/L (16-63); Albumin Level 3.3 g/dL (3.4-5.0); Alkaline Phosphatase 99 U/L (46-116); Anion Gap 13.4; Aspartate Amino Transferase 14 U/L (15-37); BUN Creatinine Ratio 12.6; Bilirubin Total 0.2 mg/dL (0.2-1.0); Calcium 8.6 mg/dL (8.5-10.1); Carbon Dioxide 28.2 mmol/L (21.0-32.0); Chloride 105 mmol/L (98-107); Estimated GFR (African America >60 (>=60 mL/min/1.73m^2); Estimated GFR (Non-African Ame >60 (>=60 mL/min/1.73m^2); Globulin 3.2 g/dL; Glucose 94 mg/dL (74-106); Potassium 3.6 mmol/L (3.5-5.1); Sodium 143 mmol/L (136-145); Thyroid Stimulating Hormone 2.976 uIU/mL (0.358-3.740); Total Protein 6.5 g/dL (6.4-8.2)
[2024-04-08 12:10] LABS: Estimated Average Glucose 105 mg/dL; Glycohemoglobin A1C 5.3 % (4.5-6.2)
== END 2024-04-08 09:06 | disposition home or self-care (01) ==
LOC: LAB 09:05
PROVIDERS: PCP Family Medicine; Visit Provider Family Medicine
DX: R63.4 Abnormal weight loss (principal); K21.9 Gastro-esophageal reflux disease without esophagitis; I10 Essential (primary) hypertension; K59.00 Constipation, unspecified; Z79.899 Other long term (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; R53.83 Other fatigue; F42.8 Other obsessive-compulsive disorder; F31.89 Other bipolar disorder
CPT/HCPCS: 36415; 80053; 83036; 84443; 85025

== ENCOUNTER 2024-11-09 11:26 | Emergency (ER) | payer MEDICARE, MEDICAID, SELFPAY ==
[2024-11-09 11:28] VITALS: BP 107/71; PULSE 83; TEMP 36.3; O2SAT 100
--- OUTSIDE RECORDS SUMMARY | 2024-11-09 11:36 | XMS_ITS | CCD ---
Author Organization [facility] Care Team Providers Care Carpenter'S Assistant Name Role Phone LOAN ETIENNE I Admitting Unavailable LOAN ETIENNE I Attending Unavailable REJI MOSS Primary Care Unavailable PROVIDER, UNKNOWN Attending Unavailable PROVIDER, UNKNOWN Admitting Unavailable Uday Quinteros DDS Unavailable [phone] Rigo Kevin DDS Unavailable [phone] Eliane TIAN, Francisco Unavailable Uday Quinteros DDS Unavailable [phone] Rigo Kevin DDS Unavailable Eliane TIAN, Francisco Unavailable ISA, DR REJI Byrd Admitting Unavailable MOSS, DR REJI Byrd Attending Unavailable MOSS, DR REJI Byrd Consulting Unavailable MOSS, DR REJI Byrd Primary Care Unavailable MOSS, DR REJI Byrd Admitting Unavailable MOSS, DR REJI Byrd Attending Unavailable MOSS, DR REJI Byrd Primary Care Unavailable REJI MOSS Primary Care Physician [phone] Diya Mcginnis Attending Diya Lockwood Attending Diya Lockwood Attending Unavaila Diya Abdi Attending Reji Miller MD Primary Care Provider ALEJANDRO MICHELLE Attending Unavailable ALEJANDRO MICHELLE Attending Unavailable Medications Current Medications Medication Drug Class(es) Dates Sig (Normalized) Sig (Original) acetaminophen 325 mg oral tablet (4 sources) acetaminophen (Tylenol) 325 MG tablet every 4 (four) hours Active aluminum hydroxide 200 mg / magnesium hydroxide 200 mg / simethicone 25 mg chewable tablet (5 sources) Start: 07-30-2023 Mintox Plus oral tablet, chewable Refill(s) 0 Start Date: 07/30/23 Status: Ordered Start: 06-05-2023 take 1 tablet by neena th four times daily Mintox Plus 200-200-25 MG chewable tablet CHEW 1 TABLET BY MOUTH 4 TIMES DAILY 06/05/2023 Active bisacodyl 10 mg rectal suppository (4 sources) Stimulant Laxative bisacodyl (Du lcolax) 10 MG suppository Insert 10 mg into the rectum Active 12 hr buPROPion hydrochloride 100 mg extended release oral tablet (5 sources) Aminoketone Start: 07-30-2023 buPROPion 100 mg ER Tab Refills(s) 0 Start Date: 07/30/23 Status: Ordered Start: 06-06-2023 buPROPion (Wel lbutrin) 100 MG tablet 06/06/2023 Active cloNIDine (6 sources) Central alpha-2 Adrenergic Agonist Start: 09-10-2009 clonidine BID, Refil ls(s) 0 Start Date: 09/10/09 Status: Ordered cloNIDine (Catap res) 0.2 MG tablet 1 (one) time each day at the same time Active dicyclomine hydrochloride 10 mg oral capsule (5 sources) Anticholinergic Start: 01-19-2023 take 1 capsule by mouth four times daily as needed dicyclomine (Bentyl) 10 MG capsule TAKE ONE CAPSULE BY MOUTH FOUR TIMES A DAY NEEDED 01/19/2023 Active Start: 01-01-2023 End: 01-15-2023 take 1 capsule by mouth four times daily dicyclomine 10 mg Cap 10 mg = 1 cap(s), Oral, QID, X 14 day(s), # 56 cap(s), Refills(s) 0 Start Date: 01/01/23 Stop Date: 01/15/23 Status: Ordered 12 hr guaiFENesin 600 mg extended release oral tablet (4 sources) guaiFENesin (Muc inex) 600 MG 12 hr tablet Take 1,200 mg by mouth Active Guanfacine (3 sources) Central alpha-2 Adrenergic Agonist Start: 09-10-2009 guanfacine Oral, Once a day (at bedtime), Refills(s) 0 Start Date: 09/10/09 Status: Ordered guanFACINE (Tene x) 2 MG tablet Take by mouth Active haloperidol 20 mg oral tablet (5 sources) Typical Antipsychotic Start: 06-06-2023 haloperidol (Haldol) 20 MG tablet 06/06/2023 Active ibuprofen 600 mg oral tablet (2 sources) Nonsteroidal Anti-inflammatory Drug Start: 10-27-2009 take 1 tablet by mouth every six hours as needed for pain ibuprofen (MOTRIN) 600 MG tablet Take 1 Tab by mouth every 6 hours as needed for Pain. 30 3 10/27/2009 Active Enulose (2 sources) Osmotic Laxative Start: 09-10-2009 Enulose 10 gr am, Oral, Daily, Refills(s) 0 Start Date: 09/10/09 Status: Ordered linaclotide 0.29 mg oral capsule (5 sources) Guanylate Cyclase-C Agonist Start: 07-30-2023 Linzess 290 mcg oral capsule Refills(s) 0 Start Date: 07/30/23 Status: Ordered Start: 05-29-2023 take 1 capsule by mo ut in the morning Linzess 290 MCG capsule Take 290 mcg by mouth in the morning. 05/29/2023 Active lisdexamfetamine dimesylate 70 mg oral capsule (5 sources) Central Nervous System Stimulant Start: 07-30-2023 take 1 capsule by mouth once daily in the morning Vyvanse 70 mg oral capsule 70 mg, 1 cap(s), Oral, qAM, Refill(s) 0 Start Date: 07/30/23 Status: Ordered Loratadine (6 sources) Start: 09-10-2009 loratadine 10 mg, Refills(s) 0 Start Date: 09/10/09 Status: Ordered take 1 tablet by mouth once tanner y loratadine (Claritin) 10 MG tablet TAKE ONE TABLET BY MOUTH ONCE DAILY CLARITIN Active Metoprolol (6 sources) beta-Adrenergic Elías Start: 09-10-2009 metopr olol Refills(s) 0 Start Date: 09/10/09 Status: Ordered take 1 tablet [facility] tartrate (Lopressor) 100 MG tablet Take 100 mg by mouth in the morning and 100 mg before bedtime. Active mirtazapine 15 mg oral tablet (1 source) take 1 tablet by mouth at bedtime mirtazapine (Remeron) 15 MG tablet Take 15 mg by mouth at bedtime Active montelukast 10 mg oral tablet (5 sources) Leukotriene Receptor Antagonist Start: montelukast 10 mg Tab Refills(s) 0 Start Date: 07/30/23 Status: Ordered Naltrexone (6 sources) Opioid Antagonist Start: 0 naltrexone Refills(s) 0 Start Date: 09/10/09 Status: Ordered naltrexone (Depa de) 50 MG tablet 1 (one) time each day at the same time Active Zyprexa (2 sources) Atypical Antipsychotic Start: 09-10-2009 Zyprexa Refills(s) 0 Start Date: 09/10/09 Status: Ordered omeprazole 40 mg delayed release oral capsule (6 sources) Proton Pump Inhibitor Start: 01-01-2023 take 1 capsule by mouth once daily omeprazole 40 mg Cap-DR 40 mg = 1 cap(s), Oral, Daily, # 90 cap(s), Refills(s) 3 Start Date: 01/01/23 Status: Ordered ondansetron 4 mg oral tablet (4 sources) Serotonin-3 Receptor Antagonist ondansetron (Zofran) 4 MG tablet every 12 (twelve) hours Active polyethylene glycol 3350 33018 mg powder for oral solution (6 sources) Osmotic Laxative Start: 2023 polyethylene glycol, PEG, 3350 (Glycolax) 17 GM/SCOOP powder TAKE 17 GRAMS BY MOUTH ONCE DAILY IF NO BOWEL MOVEMENT IN 4 DAYS NEEDED 2023 Active Start: 09-10-2009 polyethylene g lycol 3350 17 gram, Oral, Daily, Refill(s) 0 Start Date: 09/10/09 Status: Ordered Start: 09-10-2009 polyethylene g lycol 3350 17 gram, Oral, Daily, 0 Start Date: 09/10/09 Status: Ordered prochlorperazine 10 mg oral tablet (5 sources) Phenothiazine Start: 06-06-2023 prochlorperazi ne (Compazine) 10 MG tablet 06/06/2023 Active QUEtiapine 400 mg oral tablet (5 sources) Atypical Antipsychotic Start: 06-06-2023 QUEtiapine (SEROquel ) 400 MG tablet 06/06/2023 Active sennosides, senior living 8.6 mg oral tablet (4 sources) sennosides (Seno nicola) 8.6 MG tablet 1 (one) time each day at the same time Active Sertraline (2 sources) Serotonin Reuptake Inhibitor Start: 09-10-2009 sertraline Oral, Odalys ly, Refills(s) 0 Start Date: 09/10/09 Status: Ordered [...] hemorrhage) (2 sources) Peptic ulcer 07-25-2013 Chronic Mycoses (2 sources) Onychomycosis due to dermatophyte ; Translations: [Tinea unguium] 01-01-2024 Episodic Nausea and vomiting (3 sources) Vomiting; Translations: [Vomiting, unspecified] Onset: 3 Episodic Other aftercare (4 sources) Other halfway (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; Translations: [OTH SHELTER CURRENT DRUG THERAPY] Onset: 3 Episodic Other connective tissue disease (4 sources) Pain in toe; Translations: [Pain in right toe(s)] 01-01-2024 Episodic Other gastrointestinal disorders (3 sources) Burping; Translations: [Eructation] Onset: 3 Episodic Other nutritional; endocrine; and metabolic disorders (2 sources) Loss of appetite; Translations: [Anorexia] Onset: 3 Episodic Other nutritional; endocrine; and metabolic disorders (1 source) Decrease in appetite 07-30-2023 Episodic Other skin disorders (2 sources) Dystrophia unguium; Translations: [Nail dystrophy] 01-01-2024 Episodic Other upper respiratory disease (2 sources) Seasonal allergy 09-10-2009 Chronic Unclassified (2 sources) CHRONIC LEFT INFECTED GROIN CYST; Translations: [CHRONIC LEFT INFECTED GROIN CYST] Onset: 9 Results Test Name Value Interpretation Reference Range Facility Ambulatory Visit Summaryon 0 07-30-2023 Ambulatory Visit Summary LUIS BAILEY :1985 Visit Date:07/30/2023 Ambulatory Visit Instructions Your Diagnosis GERD [Gastroesophageal reflux disease] Poor appetite Vomiting Belching Your Care Team Attending Physician - Diya Mcginnis MD Primary Care Physician - REJI MOSS DO This Is Your Medications List [...] Resolved History of Present Illness per healthcare surveyor helper, depends on the kind of food whether [...] virus vaccine, inactivated 03/01/2022 Recorded SARS-CoV-2 (COVID-19) [id number] 03/01/2022 Recorded 2022-12-06: TPVALL influenza virus vaccine, [...] inactivated 1985 Recorded (more content not included)... [facility] Comment on above: Result Comment: Elec tronically Signed By: Ras BARBOUR, Diya Baxter\.br\Date and Time Signed: 07/30/23 11:52 EDT Longterm Recordson 07-29 Longterm Records [id number] .00TIFF [facility] Ambulatory Visit Summaryon 0 01-01-2023 Ambulatory Visit Summary LUIS BAILEY :1985 Visit Date:01/01/2023 Ambulatory Visit Instructions Your Diagnosis GERD [Gastroesophageal reflux disease] Hiatal hernia Poor appetite Vomiting Belching Your Care Team Attending Physician - Ras BARBOUR, Diya Baxter Primary Care Physician - REJI MOSS DO This Is Your Medications List [...] disorder Peptic ulcer disease Seasonal allergy Normal [facility] G[facility]ology Office/Clin ic Noteon 01-01-2023 Gastroenterology Office/Clinic [...] agitated and aggressive today. EGD 03/04/2013 @ [facility]: 1. Biopsies taken from the small bowel. [...] ARE NOT IDENTIFIED Repeat EGD done at [facility] 08/06/2014. EGD: Retropharyngeal area was grossly normal [...] very limited and obtained from brother and resident care director 2 weeks ago he had decreased appetite, [...] virus vaccine, inactivated 03/01/2022 Recorded SARS-CoV-2 (COVID-19) [id number] 03/01/2022 Recorded 2022-12-06: TPVALL influenza virus vaccine, [...] Recorded poliovirus vacci (more content not included)... [facility] Comment on above: Result Comment: Elec tronically Signed By: Ras BARBOUR, Diya Baxter\.br\Date and Time Signed: 01/01/23 09:14 EDT Historical Records Officeon 12-06-2022 Historical Records Office [id number] .[id number]:127 [facility] Historical Records Office [id number] .[id number]:127 [facility] Historical Records Office [id number] .[id number]:127 [facility] Physician Referralon 023 Physician Referral [id number] .00CD:127 [facility] Physician Referral [id number] .00CD:127 [facility] DEPAKENE/ VALPROIC ACIDon DEPAKENE 64.0 ug/ml Normal 50.0-100.0 [facility] Comment on above: Performed By: #### V ALP #### [facility] [address] [address] [address] Madiha Medina Progress Noteson 09-23-2021 Outreach Manager Authentication Interface Message Text ----- Thursday, September 23, 2021 at 1:00:26 PM ----- ----- Provider: Keila Vargas -- Clinic: [place] ----- [facility], Pt is ready for tx. Pt presents for examination. Pt is ID and non-verbal. Pt is aggressive and lead caregiver was taken to the back room to keep pt away from others. Pt is edentulous and Dr. Bose examined the gums and did not see of feel any signs of infection. Advised to return for exams on as need basis. Bhakti [facility]/Dr. Bose [place]. EXAM ----- Signed on Thursday, September 23, 2021 at 4:02:34 PM ----- ----- Provider: China Dinero DMD -- Clinic: [place] ----- Normal [facility] Surgical Pathologyon 019 Surgical Pathology (NOTE) [id number] [employer] [facility] ANATOMIC PATHOLOGY [address] [place] [id number] SURGICAL PATHOLOGY CONSULTATION Patient Name: LUIS BAILEY Med Rec: [id number] Path Number: [id number] Collected: 05/30/2018 Received: 05/31/2018 Reported: 06/03/2018 15:31 -- Diagnosis -- SKIN TISSUES, EXCISION (LEFT GROIN): - RUPTURED EPIDERMAL CYST WITH MARKED INFLAMMATORY REACTION. Jessi Rudd M.D. Electronically Signed Out [facility]/06/03/2018 Clinical Information Pre-op Diagnosis: CHRONIC LEFT INFECTED GROIN CYST Operative Findings: LEFT GROIN MASS Operation Performed: GROIN EXPLORATION Source of Specimen 1: LEFT GROIN MASS Gross Description LUIS BAILEY, LEFT GROIN MASS Fragments of brown gonzáles skin and subcutaneous tissue with areas of granularity, 2.8 x 2.2 x 0.5 cm. in aggregate. Entirely. 1cs dw Microscopic Description Microscopic examination performed. Normal [facility] Comment on above: Performed By: #### P PPVS #### [facility] [address] [place] [id number] Designer Architect: River Rudd MD Vital Signs Date Time Vital Sign Value Performing Clinician Facosmar lity 07-03-2024 10:21-0500 Body height 175.3 cm Alejandro Michelle DPM Work Phone: [facility] 07-03-2024 10:21-0500 Body mass index (BMI) [Ratio] 22.74 kg/m2 Alejandro Michelle DPM Work Phone: [facility] 07-03-2024 10:21-0500 Body weight 69.85 kg Alejandro Michelle DPM Work Phone: [facility] 01-01-2024 11:12-0400 Body height 175.3 cm Alejandro Michelle DPM Work Phone: [facility] 01-01-2024 11:12-0400 Body mass index (BMI) [Ratio] 22.74 kg/m2 Alejandro Michelle DPM Work Phone: [facility] 01-01-2024 11:12-0400 Body weight 69.85 kg Alejandro Michelle DPM Work Phone: [facility] Healthcare Encounters Encounter Date Encounter Type Care Provider Facility Start: 07-03-2024 End: 07-03-2024 Bamboo flowsheet Alejandro Michelle DPM Work Phone: [facility] Start: 07-03-2024 End: 07-03-2024 Bamboo flowsheet Alejandro Michelle DPM Work Phone: [facility] Start: 07-03-2024 End: 07-03-2024 Patient encounter procedure Alejandro Michelle DPM Work Phone: [facility] Comment on above: Dermatophytosis of n ail (Primary Dx); Dystrophic nail; Pain around toenail, right foot; Pain around toenail, left foot Start: 07-03-2024 End: 07-03-2024 ambulatory ALEJANDRO MICHELLE Not Available Start: 01-01-2024 End: 01-01-2024 Bamboo flowsheet Alejandro Michelle DPM Work Phone: [facility] Start: 01-01-2024 End: 01-01-2024 Bamboo flowsheet Alejandro Michelle DPM Work Phone: [facility] Start: 01-01-2024 End: 01-01-2024 Patient encounter procedure Alejandro Michelle DPM Work Phone: [facility] Comment on above: Dermatophytosis of n ail (Primary Dx); Dystrophic nail; Pain around toenail, right foot; Pain around toenail, left foot Start: 01-01-2024 End: 01-01-2024 ambulatory ALEJANDRO MICHELLE Not Available Start: 07-30-2023 End: 07-31-2023 ambulatory Keane Talal Sarmini Facility:[facility] Start: 07-30-2023 End: 07-30-2023 Patient encounter procedure Keane Talal Sarmini [facility] Start: 07-09-2023 End: 07-10-2023 ambulatory Keane Talal Sarmini Facility:[facility] Start: 01-01-2023 End: 01-02-2023 ambulatory Keane Talal Sarmini Facility:[facility] Start: 01-01-2023 End: 01-01-2023 Patient encounter procedure Keane Talal Sarmini [facility] Start: 12-28-2022 End: 12-29-2022 ambulatory Keane Talal Sarmini Facility:[facility] Start: 12-05-2022 ambulatory Keane Sarmini Facili ty:[facility] Start: 10-11-[address] REJI MOSS Fac ility:[facility] Start: 08-31-2022 End: 09-01-[address] REJI MOSS Facility:[facility] Start: 08-19-2022 Letter encounter Uday Quinteros DDS Work Phone: [facility] Start: 11-19-2021 Letter encounter Uday Quinteros DDS Work Phone: [facility] Start: 09-23-2021 End: 09-26-2021 ambulatory UNKNOWN PROVIDER Facility:[facility] Start: 05-30-2018 End: 05-30-2018 Patient encounter procedure LOAN ETIENNE [facility] Procedures Date Procedure Procedure Detail Performing Clinician Start: 05-30-2018 DISCHARGE PATIENT JAMAICA PAIGE Start: 05-30-2018 SURGICAL PATHOLOGY CHACHA HOWE Plan of Treatment Date Care Activity Detail Author Start: 2037 Shingles (RZV) Vacci ne (1 of 2) Shingles (RZV) Vaccine (1 of 2) [facility] Start: 12-31-2024 End: 12-31-2024 Patient encounter procedure 12/31/2024 10:15 AM EDT Procedure Visit [facility] [address] [place] [phone] Alejandro Michelle, PATRICK [address] [place], [place] [id number] [facility] Start: 07-03-2024 End: 07-03-2024 Patient encounter procedure [facility] Comment on above: Arrived Start: 01-13-2024 Influenza vaccination Influenza Vacc ine (#1) [facility] Start: 01-01-2024 End: 01-01-2024 Patient encounter procedure 01/01/2024 10:45 AM EDT Procedure Visit [facility] [address] [place] [phone] Alejandro Michelle [address] [place] [address] Arrived [facility] Comment on above: Arrived Start: 02-07-2023 End: 02-07-2023 Patient encounter procedure 02/07/2023 Procedure Visit Dentistry Jose Dinero, MAURICIO [address] [place], [place] [id number] [facility] Start: 01-30-2023 Tetanus vaccination Tetanus (T d or Tdap) Booster [facility] Start: 2022 Lipid panel Ch[facility] Start: 12-12-2021 Influenza vaccination Influenza Vacc ine (#1) [facility] Start: 05-04-2021 COVID-19 Vaccine (4 - Booster for Pfizer series) COVID-19 Vaccine (4 - Booster for Pf[facility] series) [facility] Start: 2005 Hepatitis C screening Hepatitis C An tibody [facility] Start: 2002 HIV screening HIV Test [facility] Immunizations Immunization Date Immunization Notes Care Provider Nazanin argueta 06-25-2023 tetanus toxoid, reduced diphtheria toxoid, and acellular pertussis vaccine, adsorbed Keane Sarmini [facility] 05-08-2023 influenza virus vaccine, unspecified formulation Keane Sarmini [facility] 03-01-2022 influenza virus vaccine, unspecified formulation Keane Sarmini [facility] 03-01-2022 SARS-CoV-2 (COVID-19 ) [id number] Keane Sarmini [facility] Comment on above: Result Comment: 2022: TPVALL 03-09-2021 influenza, injectabl e, quadrivalent, preservative free Uday Butriy DDS Work Phone: [facility] 03-09-2021 SARS-CoV-2 (COVID-19 ) mRNA BNT-162b2 vax Keane Sarmini [facility] Comment on above: Result Comment: 2022: TPV3 03-09-2021 influenza virus vaccine, unspecified formulation Uday Butriy DDS Work Phone: [facility] 06-15-2020 Pfizer (12+ yrs) SARS-COV-2 (COVID-19) vaccine, mRNA, spike protein, LNP, pres. free, 30 mcg/0.3mL dose ([id number]) Uday Butriy DDS Work Phone: [facility] Comment on above: Result Comment: 2022: TPVAL 05-25-2020 Pfizer (12+ yrs) SARS-COV-2 (COVID-19) vaccine, mRNA, spike protein, LNP, pres. free, 30 mcg/0.3mL dose ([id number]) Uday Butriy DDS Work Phone: [facility] Comment on above: Result Comment: 2022: TPVAL 02-18-2020 influenza virus vaccine, unspecified formulation Keane Sarmini [facility] 02-18-2020 influenza, injectabl e, quadrivalent, preservative free Uday Butriy DDS Work Phone: [facility] 03-19-2019 influenza virus vaccine, unspecified formulation Keane Sarmini [facility] 03-19-2019 influenza, injectabl e, quadrivalent, contains preservative Uday Butriy DDS Work Phone: [facility] 02-20-2018 influenza virus vaccine, unspecified formulation Keane Sarmini [facility] 02-20-2018 influenza, injectabl e, quadrivalent, preservative free Uday Butriy DDS Work Phone: [facility] 03-07-2017 influenza virus vaccine, unspecified formulation Keane Sarmini [facility] 03-07-2017 influenza, injectabl e, quadrivalent, contains preservative Uday Butriy DDS Work Phone: [facility] 03-04-2015 influenza virus vaccine, unspecified formulation Keane Sarmini [facility] 03-04-2015 influenza, injectabl e, quadrivalent, preservative free Uday Butriy DDS Work Phone: [facility] 01-30-2013 tetanus toxoid, reduced diphtheria toxoid, and acellular pertussis vaccine, adsorbed Uday Butriy DDS Work Phone: [facility] 03-31-2009 novel [id number], preservative-free, injectable Uday Butriy DDS Work Phone: [facility] 03-05-2008 influenza virus vaccine, whole virus Uday Butriy DDS Work Phone: [facility] 03-05-2008 influenza, whole Keane Sa rmini [facility] 03-13-2006 influenza virus vaccine, unspecified formulation Keane Sarmini [facility] 03-13-2006 influenza, seasonal, injectable Uday Butriy DDS Work Phone: [facility] 01-28-2003 TD(adult) unspecifie d formulation; Translations: [Td(adult) unspecified formulation] Uday Butriy DDS Work Phone: [facility] 01-03-2000 measles, mumps and rubella virus vaccine Uday Butriy DDS Work Phone: [facility] 07-03-1995 hepatitis B vaccine, pediatric or pediatric/adolescent dosage Uday Butriy DDS Work Phone: [facility] 01-25-1995 hepatitis B vaccine, pediatric or pediatric/adolescent dosage Uday Butriy DDS Work Phone: [facility] 12-21-1994 hepatitis B vaccine, pediatric or pediatric/adolescent dosage Uday Butriy DDS Work Phone: [facility] 01-27-1993 diphtheria, tetanus toxoids and acellular pertussis vaccine, unspecified formulation Uday Butriy DDS Work Phone: [facility] 01-27-1993 DTaP, unspecified formulation Keane Sarmini [facility] 01-27-1993 poliovirus vaccine, inactivated Uday Butriy DDS Work Phone: [facility] 01-27-1993 poliovirus vaccine, unspecified formulation Keane Sarmini [facility] 04-02-1990 diphtheria, tetanus toxoids and pertussis vaccine Uday Butriy DDS Work Phone: [facility] 04-02-1990 haemophilus influenz ae type b vaccine, conjugate unspecified formulation Uday Butriy DDS Work Phone: [facility] 04-02-1990 Hib, unspecified formulation Keane Sarmini [facility] 04-02-1990 poliovirus vaccine, inactivated Uday Butriy DDS Work Phone: [facility] 04-02-1990 poliovirus vaccine, unspecified formulation Keane Sarmini [facility] 01-18-1989 diphtheria, tetanus toxoids and pertussis vaccine Uday Butriy DDS Work Phone: [facility] 01-18-1989 measles, mumps and rubella virus vaccine Uday Butriy DDS Work Phone: [facility] 01-18-1989 poliovirus vaccine, inactivated Uday Butriy DDS Work Phone: [facility] 01-18-1989 poliovirus vaccine, unspecified formulation Keane Sarmini [facility] 1987 diphtheria, tetanus toxoids and pertussis vaccine Uday Butriy DDS Work Phone: [facility] 1985 haemophilus influenz ae type b vaccine, conjugate unspecified formulation Uday Butriy DDS Work Phone: [facility] 1987 Hib, unspecified formulation Keane Sarmini [facility] 1987 poliovirus vaccine, inactivated Uday Quinteros DDS Work Phone: [facility] 1987 poliovirus vaccine, unspecified formulation Keane Sarmini [facility] Payers Date Payer Category Payer Medicare [id number] 2007 Medicare 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 [id number] [id number] 1987 Unknown [id number] 1987 Unknown [id number] 1987 Unknown [id number] [id number] 1987 Unknown [id number] [id number] 1987 Unknown [id number] [id number] 1987 Unknown [id number] [id number] 1987 Unknown [id number] [id number] 1987 Unknown [id number] 1959 Medicaid [id number] 1957 Medicare [id number] Unknown [id number] Unknown [id number] Social History Date Type Detail Facility Tobacco smoking stat [facility] Tobacco smoking consumption unknown [facility] Start: 1985 Sex Assigned At Not on file [facility] Tobacco smoking status No Smokin g Status Entered [facility] Start: 06-12-2023 End: 01-01-2024 Sex Assigned At Male [facility] Start: 06-12-2023 Tobacco smoking stat [facility] Never smoked tobacco [facility] Start: 06-12-2023 End: 01-01-2024 Alcoholic beverage intake Lifetime non-drinker (finding) [facility] Start: 06-12-2023 End: 01-01-2024 History of Social function [facility] Start: 01-22-2023 Alcohol Comment Caffeine intake: non e [facility] Functional Status Date Assessment Result Facility 07-30-2023 Functional Status N/A [facility] 01-01-2023 Functional Status N/A [facility] History of Present illness Narrative 07-03-2024 Alejandro Michelle DPM - 07/03/2024 10:45 AM EST Note Date & Type Note Facility 07-03-2024 History of Presen t illness Narrative Images from the original note were not included. Subjective Patient ID: Luis Bailey is a 39 y.o. male who presents for Toenail Care. HPI HPI Onychomycosis/Toenail Fungus: Luis is a resident of [facility]; with severe autism, with associated behavioral abnormalities. Location: all digits with grossly deformed toenail; problematic/symptomatic. Duration: Chronic toenail deformity, multiple years duration. Severity of symptoms: Patient is non-verbal. Care staff indicates that patient is bothered by catching on clothing, bed sheets etc.; recently indicating pressure with most shoes. Onset: gradual, without known injury or trauma. Status: Progressive deformity, problematic/symptomatic over the past 1-2 months or so. Context: hard to trim , hard to reach ; self-care is difficult, ineffective, essentially not practical; Increasing risk exposure. Characteristics: discolored, thickened, pain , /lifting, pressure. Relieved by: Previous palliative measures have provided favorable transient symptom relief. Previous Treatment: Palliative care as noted. Risk factors: medical comorbidities. Polypharmacy. Autism with behavior abnormalities. Gross toenail deformity. Digital and/or shoe trauma and related complications. Aggravated by: shoe gear , pressure, walking , catching and snagging on clothing etc.. PCP Medications Current Outpatient Medications: acetaminophen (Tylenol) 325 MG tablet, every 4 (four) hours, Disp: , Rfl: bisacodyl (Dulcolax) 10 MG suppository, Insert 10 mg into the rectum, Disp: , Rfl: buPROPion (Wellbutrin) 100 MG tablet, , Disp: , Rfl: cloNIDine (Catapres) 0.2 MG tablet, 1 (one) time each day at the same time, Disp: , Rfl: dicyclomine (Bentyl) 10 MG capsule, TAKE ONE CAPSULE BY MOUTH FOUR TIMES A DAY NEEDED, Disp: , Rfl: guaiFENesin (Mucinex) 600 MG 12 hr tablet, Take 1,200 mg by mouth, Disp: , Rfl: haloperidol (Haldol) 20 MG tablet, , Disp: , Rfl: Linzess 290 MCG capsule, Take 290 mcg by mouth in the morning., Disp: , Rfl: loratadine (Claritin) 10 MG tablet, TAKE ONE TABLET BY MOUTH ONCE DAILY CLARITIN, Disp: , Rfl: metoprolol tartrate (Lopressor) 100 MG tablet, Take 100 mg by mouth in the morning and 100 mg before bedtime., Disp: , Rfl: Mintox Plus 200-200-25 MG chewable tablet, CHEW 1 TABLET BY MOUTH 4 TIMES DAILY, Disp: , Rfl: montelukast (Singulair) 10 MG tablet, Take 10 mg by mouth at bedtime, Disp: , Rfl: naltrexone (Depade) 50 MG tablet, 1 (one) time each day at the same time, Disp: , Rfl: omeprazole (PriLOSEC) [address] capsule, Take 40 mg by mouth in the morning., Disp: , Rfl: ondansetron (Zofran) 4 MG tablet, every 12 (twelve) hours, Disp: , Rfl: polyethylene glycol, PEG, 3350 (Glycolax) 17 GM/SCOOP powder, TAKE 17 GRAMS BY MOUTH ONCE DAILY IF NO BOWEL MOVEMENT IN 4 DAYS NEEDED, Disp: , Rfl: prochlorperazine (Compazine) 10 MG tablet, , Disp: , Rfl: QUEtiapine (SEROquel) 400 MG tablet, , Disp: , Rfl: sennosides (Senokot) 8.6 MG tablet, 1 (one) time each day at the same time, Disp: , Rfl: Vyvanse 70 MG capsule, Take 70 mg by mouth in the morning., Disp: , Rfl: Allergies Patient has no known allergies. Past Surgical History No past surgical history on file. Family History Family History Family history unknown: Yes Objective General Examination: GENERAL EXAMINATION: Alert and fairly well oriented. Cooperative disposition; combative at times. Patient is non-verbal. His care staff person, Pooja, along with his brother, Mehrdad are present. Vascular: DORSALIS PEDIS PULSE: bilaterally, 2/4 . POSTERIOR TIBIAL PULSE: bilaterally, 2/4 . TEMPERATURE GRADIENT: warm to warm. EDEMA: Unremarkable for ankle or pedal edema. CAPILLARY FILLING TIME(sec): capillary fill intact bilateral digits less than 3 secs . Neurologic: SHARP SENSATION: Tactile and soft touch sensation intact. Dermatologic: SKIN FINDINGS: Intact. Skin turgor is good. HYPERTROPHIC LESION: No forefoot or digital keratotic pressure lesions are noted. NAIL PATHOLOGY: All digits: None are spared: Toenail dystrophy, discoloration, hypertrophy, elongation, thickening, clubbing, crumbly texture, subtotal onycholysis, periungual hyperkeratosis, without drainage. MYCOSIS SCALE: total with debris; multiple digits (TDO); particularly the right foot. INTERDIGITAL MACERATION :Clean, dry, non-inflamed. SKIN PATHOLOGY: texture, turgor, hair growth, within normal limits . Ankle / Foot: FOOT: No discrete forefoot or digital deformities are noted. RANGE OF MOTION: Demonstrates functional ankle, subtalar and MTP joint range of motion without pain . Radiology: Assessment/Plan Symptomatic onychodystrophy/mycosis (TDO) multiple digits. Advanced autism, with behavioral disabilities. Polypharmacy Plan: Notes: Conservative and palliative care is again indicated. Patient is not a candidate for oral or topical therapy; nor I suspect matricectomy. Procedure: Toenail Debridement: Aseptic technique: power/manual instrumentation: onychodebridement length and thickness, curretage of offending crypotic margins, laurie-ungual debris, providing effective relief, reducing shoe and digital trauma. This note was created with the assistance of a speech recognition program. While intending to generate a timely document that accurately reflects the content of the visit, no guarantee can be provided that every grammatical or spelling mistake has been or will be identified or corrected. Thank you for your understanding. Alejandro Michelle DPM documented in this encounter [facility] History of Present illness Narrative 01-01-2024 Alejandro Michelle DPM - 01/01/2024 10:45 AM EDT Note Date & Type Note Facility 01-01-2024 History of Presen t illness Narrative Images from the original note were not included. Subjective Patient ID: Luis Bailey is a 38 y.o. male who presents for Nail care (Luis Bailey is a 38yo Male patient presents for Nail care. Pt is a resident at [facility]. Severe autism.Brother Mehrdad and caregiver Pooja). HPI HPI Onychomycosis/Toenail Fungus: Luis is a resident of [facility]; with severe autism and profound mental retardation, with associated behavioral abnormalities. Location: all digits with grossly deformed toenail; problematic/symptomatic. Duration: Chronic toenail deformity, multiple years duration. Severity of symptoms: Patient is non-verbal. Care staff indicates that patient is bothered by catching on clothing, bed sheets etc.; recently indicating pressure with most shoes. Onset: gradual, without known injury or trauma. Status: Progressive deformity, problematic/symptomatic over the past month or so. Context: hard to trim , hard to reach ; self-care is difficult, ineffective, essentially not practical; Increasing risk exposure. Characteristics: discolored, thickened, pain , /lifting, pressure. Relieved by: Previous palliative measures have provided favorable transient symptom relief. Previous Treatment: Palliative care as noted. Risk factors: medical comorbidities. Polypharmacy. autism with behavior abnormalities. Gross toenail deformity. Digital and/or shoe trauma and related complications. Aggravated by: shoe gear , pressure, walking , catching and snagging on clothing etc.. PCP Medications Current Outpatient Medications: acetaminophen (Tylenol) 325 MG tablet, every 4 (four) hours, Disp: , Rfl: bisacodyl (Dulcolax) 10 MG suppository, Insert 10 mg into the rectum, Disp: , Rfl: buPROPion (Wellbutrin) 100 MG tablet, , Disp: , Rfl: cloNIDine (Catapres) 0.2 MG tablet, 1 (one) time each day at the same time, Disp: , Rfl: dicyclomine (Bentyl) 10 MG capsule, TAKE ONE CAPSULE BY MOUTH FOUR TIMES A DAY NEEDED, Disp: , Rfl: guaiFENesin (Mucinex) 600 MG 12 hr tablet, Take 1,200 mg by mouth, Disp: , Rfl: haloperidol (Haldol) 20 MG tablet, , Disp: , Rfl: Linzess 290 MCG capsule, Take 290 mcg by mouth in the morning., Disp: , Rfl: loratadine (Claritin) 10 MG tablet, TAKE ONE TABLET BY MOUTH ONCE DAILY CLARITIN, Disp: , Rfl: metoprolol tartrate (Lopressor) 100 MG tablet, Take 100 mg by mouth in the morning and 100 mg before bedtime., Disp: , Rfl: Mintox Plus 200-200-25 MG chewable tablet, CHEW 1 TABLET BY MOUTH 4 TIMES DAILY, Disp: , Rfl: montelukast (Singulair) 10 MG tablet, Take 10 mg by mouth at bedtime, Disp: , Rfl: naltrexone (Depade) 50 MG tablet, 1 (one) time each day at the same time, Disp: , Rfl: omeprazole (PriLOSEC) [address] capsule, Take 40 mg by mouth in the morning., Disp: , Rfl: ondansetron (Zofran) 4 MG tablet, every 12 (twelve) hours, Disp: , Rfl: polyethylene glycol, PEG, 3350 (Glycolax) 17 GM/SCOOP powder, TAKE 17 GRAMS BY MOUTH ONCE DAILY IF NO BOWEL MOVEMENT IN 4 DAYS NEEDED, Disp: , Rfl: prochlorperazine (Compazine) 10 MG tablet, , Disp: , Rfl: QUEtiapine (SEROquel) 400 MG tablet, , Disp: , Rfl: sennosides (Senokot) 8.6 MG tablet, 1 (one) time each day at the same time, Disp: , Rfl: Vyvanse 70 MG capsule, Take 70 mg by mouth in the morning., Disp: , Rfl: Allergies Patient has no known allergies. Past Surgical History History reviewed. No pertinent surgical history. Family History Family History Family history unknown: Yes Objective General Examination: GENERAL EXAMINATION: Alert and fairly well oriented. Cooperative disposition; combative at times. Patient is non-verbal. His care staff person, Pooja, along with his brother, Mehrdad are present. Vascular: DORSALIS PEDIS PULSE: bilaterally, 2/4 . POSTERIOR TIBIAL PULSE: bilaterally, 2/4 . TEMPERATURE GRADIENT: warm to warm. EDEMA: Unremarkable for ankle or pedal edema. CAPILLARY FILLING TIME(sec): capillary fill intact bilateral digits less than 3 secs . Neurologic: SHARP SENSATION: Tactile and soft touch sensation intact. Dermatologic: SKIN FINDINGS: Intact. Skin turgor is good. HYPERTROPHIC LESION: No forefoot or digital keratotic pressure lesions are noted. NAIL PATHOLOGY: All digits: None are spared: Toenail dystrophy, discoloration, hypertrophy, elongation, thickening, clubbing, crumbly texture, subtotal onycholysis, periungual hyperkeratosis, without drainage. MYCOSIS SCALE: total with debris; multiple digits; particularly the right foot. INTERDIGITAL MACERATION :Clean, dry, non-inflamed. SKIN PATHOLOGY: texture, turgor, hair growth, within normal limits . Ankle / Foot: FOOT: No discrete forefoot or digital deformities are noted. RANGE OF MOTION: Demonstrates functional ankle, subtalar and MTP joint range of motion without pain . Radiology: Assessment/Plan Symptomatic onychodystrophy/mycosis (TDO) multiple digits. Advanced autism, with behavioral disabilities. Polypharmacy Plan: Notes: Conservative and palliative care is again indicated. Patient is not a candidate for oral or topical therapy; nor I suspect matricectomy. Procedure: Toenail Debridement: Aseptic technique: power/manual instrumentation: onychodebridement length and thickness, curretage of offending crypotic margins, laurie-ungual debris, providing effective relief, reducing shoe and digital trauma. This note was created with the assistance of a speech recognition program. While intending to generate a timely document that accurately reflects the content of the visit, no guarantee can be provided that every grammatical or spelling mistake has been or will be identified or corrected. Thank you for your understanding. Alejandro Michelle DPM documented in this encounter [facility] Healthcare Evaluation + Plan note 01-01-2023 Laboratory Note Date & Type Note Facility 01-01-2023 Evaluation + Plan note Future Scheduled TestsCBC w/ Auto Diff 01/01/23Comprehensive Metabolic Panel 01/01/23 [facility] Evaluation + Plan note Laboratory Note Date & Type Note Facility Evaluation + Plan note Future Appointments Appointment Date:07/09/2023 08:45:00 AM Scheduled Provider:Diya Mcginnis MD Location:[facility] Appointment Type:[facility] Follow Up Future Scheduled TestsCBC w/ Auto Diff 01/01/23Comprehensive Metabolic Panel 01/01/23 [facility] Evaluation note Note Date & Type Note Facility Evaluation note Diagnosis Dermatophytosis of nail- Primary Dystrophic nail Other specified disease of nail Pain around toenail, right foot Pain around toenail, left foot documented in this encounter [facility] Healthcare Evaluation note Note Date & Type Note Facility Evaluation note Diagnosis Dermatophytosis of nail- Primary Dystrophic nail Other specified disease of nail Pain around toenail, right foot Pain around toenail, left foot documented in this encounter [facility] Hospital course Narrative Note Date & Type Note Facility Hospital course Narrative No data available for this section [facility] Hospital Discharge instructions Note Date & Type Note Facility Hospital Discharge instructions No data available for this section [facility] Progress note Note Date & Type Note Facility Progress note No data available for this section [facility] Summary Purpose Family History No [...] section and content) DATE CREATED AUTHOR 06/13/2018 [facility] DATE CREATED AUTHOR AUTHOR'S ORGANIZ ATION 09/29/2021 [facility] DATE CREATED AUTHOR AUTHOR'S ORGANIZ ATION 10/20/2022 [facility] DATE CREATED AUTHOR AUTHOR'S ORGANIZ ATION 07/31/2023 [facility] DATE CREATED AUTHOR AUTHOR'S ORGANIZ ATION 07/05/2024 [facility] EPIC Care Teams (unrecognized sec tion and content) Carpenter'S Assistant Relationship Specialty Start Date End Date Uday Quinteros DDS 08/15/10 Rigo Kevin [address] [id number] 08/15/10 Francisco Del Rio [facility] [address] [place] [address] Resident Dentistry 02/17/20 Carpenter'S Assistant Relationship Specialty Start Date End Date Uday Quinteros DDS 08/15/10 Rigo Kevin [facility] [address] [place] [address] 08/15/10 Francisco Del Rio, DDS [address] [place] [address] Resident Dentistry 02/17/20 Carpenter'S Assistant Relationship Specialty Start Date End Date Reji Moss MD [address] [place] [address] PCP - General Family Medicine 01/01/24 Carpenter'S Assistant Relationship Specialty Start Date End Date Reji Moss MD [address] [place] [address] PCP - General Family Medicine 01/01/24 Carpenter'S Assistant Relationship Specialty Start Date End Date Reji Moss MD [address] [place] [address] PCP - General Family Medicine 01/01/24 Carpenter'S Assistant Relationship Specialty Start Date End Date Reji Moss MD [address] [place] [address] PCP - General Family Medicine 01/01/24 Reason for Visit (unrecogniz ed section and content) Reason Comments Nail care Luis Bailey is a 38yo Male patient presents for Nail care. Pt is a resident at [facility]. Severe autism.Brother Mehrdad and caregiver Pooja Reason Comments Toenail Care Established pt prese nts today for nail care. Pt is resident at [facility]. Brother mehrdad and caregiver pooja are with him today. FOR RECORDS PERTAINING TO PATIENTS WHO ARE [...] BE BASED ON THE PRIMARY CLINICAL RECORDS. [facility] provides no warranty or guarantee of the accuracy or completeness of information in this document.
--- NOTE | 2024-11-09 11:54 | CT_ITS ---
The [address] [address] Patient Name: RENA RUSH MRN: [id number] date: 1985 Sex: M Assigned Patient Location: ED.MAIN Current Patient Location: ED.MAIN Accession/Order Number: [id number] Exam Date: 11/09/2024 13:58 Report Date: 11/09/2024 14:00 At the request of: JESUS DAVIS MD Procedure: CT head/brain wo con CT BRAIN WITHOUT CONTRAST: CLINICAL HISTORY: Seizure COMPARISON: 03/10/2024 TECHNIQUE: Contiguous axial unenhanced images were obtained through the brain. This CT exam was performed using one or more following dose reduction techniques: Automated exposure control, adjustment of the mA and/or kV according to patient size, or use of iterative reconstruction technique. FINDINGS: There is no evidence of midline shift, intra or extra-axial fluid collection, hemorrhage or CT evidence of acute large vascular distribution stroke Visualized intraorbital contents appear unremarkable. Visualized paranasal sinuses are clear. The surrounding soft tissues are normal. CT/CT head/brain wo con IMPRESSION: NO ACUTE INTRACRANIAL ABNORMALITY. Impression dictated by: Juan Luis Reilly M.D. 11/09/2024 2:00 PM Dictation Location: [place] [address] Electronically authenticated by: [id number] Y Date: 11/09/2024 14:00
--- NOTE | 2024-11-09 11:54 | ECG_ITS ---
The [facility] Test Date: 2024-11-09 Pat Name: RENA RUSH Department: Room: - Gender: Male [employer]: : 1985 Requested By: [id number] Order Number: [id number] Reading MD: TAMIKO HUERTA M.D. Measurements Intervals Motley Rate: 75 P: 54 AR: 144 QRS: 29 QRSD: 78 T: 96 QT: 354 QTc: 384 Interpretive Statements 1100 Sinus rhythm [address]27 Early repolarization [address] & Twave abnormality 9130 borderline ECG Compared to ECG 03/10/2024 15:04:40 No significant changes Electronically Signed On 11-09-2024 14:01:05 EDT by TAMIKO HUERTA M.D.
--- NOTE | 2024-11-09 11:54 | ED.GENADUL1 ---
HPI HPI - General Adult General Chief complaint: Seizure Stated complaint: seizures Time Seen by Provider: 11/09/24 11:51 Source: patient Mode of arrival: ambulance History of Present Illness HPI narrative: The patient male presents after having had a seizure. All the history is obtained from his caregiver who accompanies him and knows him well. She reports that he does have a history of seizures but it has been several years since he has had one. She does not believe he is on any seizure medication but she is not sure. She describes him having been outside and was sitting on the ground not having a seizure. They took him inside and put him in his reclining chair and then he had a 45-second grand mal seizure. She states he is acting himself now except he seems a little bit tired. No history is obtainable from the patient. Related Data Home Medications ?Medication ?Instructions ?Recorded ?Confirmed aluminum-mag hydroxide-simethicone 1 tab PO TID 11/09/24 11/09/24 200 mg-200 mg-25 mg chewable tablet (Mintox Plus) bupropion HCl 100 mg tablet 100 mg PO BID 11/09/24 11/09/24 cyproheptadine 4 mg tablet 4 mg PO DAILY 11/09/24 11/09/24 guanfacine 2 mg tablet 2 mg PO TID 11/09/24 11/09/24 haloperidol 20 mg tablet 20 mg PO BID 11/09/24 11/09/24 linaclotide 290 mcg capsule 290 mcg PO DAILY 11/09/24 11/09/24 (Linzess) lisdexamfetamine 70 mg capsule 70 mg PO DAILY 11/09/24 11/09/24 metoprolol tartrate 100 mg tablet 100 mg PO TID 11/09/24 11/09/24 metoprolol tartrate 25 mg tablet 25 mg PO TID 11/09/24 11/09/24 montelukast 10 mg tablet 10 mg PO DAILY 11/09/24 11/09/24 naltrexone 50 mg tablet 100 mg PO BID 11/09/24 11/09/24 omeprazole 40 mg capsule,delayed 40 mg PO DAILY 11/09/24 11/09/24 release prochlorperazine maleate 10 mg 15 mg PO DAILY 11/09/24 11/09/24 tablet quetiapine 400 mg tablet 800 mg PO HS 11/09/24 11/09/24 Allergies Allergy/AdvReac Type Severity Reaction Status Date / Time No Known Drug Allergies Allergy Verified 03/10/24 14:23 Review of Systems ROS Narrative Not obtainable, nonverbal Exam Narrative Exam Narrative: Nurses note and vital signs reviewed and patient is not hypoxic. General: The patient appears well and in no apparent distress. Patient is resting comfortably on cart. Skin: Warm, dry, no pallor noted. There is no rash noted. Head: Normocephalic, atraumatic Eye: Normal conjunctiva, no drainage Ears, Nose, Mouth, and Throat: oral mucosa is moist. Nares patent. Cardiovascular: Regular Rate and Rhythm Respiratory: Patient is in no distress, no accessory muscle use, lungs are clear to auscultation, no wheezing, rales or rhonchi Back: non-tender GI: Soft and nontender Musculoskeletal: The patient has no evidence of calf tenderness, no pitting edema, symmetrical pulses noted bilaterally Neurological: Awake and looking around the room. Nonverbal which is his baseline. Psychiatric: Cannot be assessed Constitutional Vital Signs, click to edit/add: Last Vital Signs Temp 97.3 F L 11/09/24 11:28 Pulse 83 11/09/24 11:28 Resp 18 11/09/24 11:28 BP 107/71 11/09/24 11:28 Pulse Ox 100 11/09/24 11:28 O2 Del Method Room Air 11/09/24 11:28 Course Vital Signs Vital signs: Vital Signs Temperature 97.3 F L 11/09/24 11:28 Pulse Rate 83 11/09/24 11:28 Respiratory Rate 18 11/09/24 11:28 Blood Pressure 107/71 11/09/24 11:28 Pulse Oximetry 100 11/09/24 11:28 Oxygen Delivery Method Room Air 11/09/24 11:28 Temperature 97.3 F L 11/09/24 11:28 Pulse Rate 83 11/09/24 11:28 Respiratory Rate 18 11/09/24 11:28 Blood Pressure 107/71 11/09/24 11:28 Pulse Oximetry 100 11/09/24 11:28 Oxygen Delivery Method Room Air 11/09/24 11:28 Medical Decision Making MDM Narrative Medical decision making narrative: The patient appears to have had a generalized seizure that lasted about 45 seconds. According to his caregiver he has had them in the past and his brother states he has had one earlier this year. The brother states that he was never officially diagnosed with a seizure and does not seem to have seen her neurologist. He is referred to a neurologist. His workup including CT brain here is negative and he is able to be discharged home. Findings are discussed thoroughly with his brother. Differential Diagnosis Differential Diagnosis: Seizure, syncope Lab Data Lab results reviewed: Yes I reviewed the patient's lab results Labs: Lab Results 11/09/24 Range/Units 12:37 WBC 7.0 (4.0-11.0) 10^3/uL RBC 4.77 (4.70-6.10) 10^6/uL Hgb 14.1 (14.0-18.0) g/dL Hct 41.8 L (42.0-54.0) % MCV 87.6 (80.0-94.0) fL MCH 29.6 (25.9-34.0) pg MCHC 33.7 (29.9-35.2) g/dL RDW 12.7 (11.0-15.0) % Plt Count 203 (150-450) 10^3/uL MPV 10.3 (9.5-13.5) fL Neut % (Auto) 78.5 H (43.0-75.0) % Lymph % (Auto) 14.2 L (20.5-60.0) % Mclennan % (Auto) 6.2 (1.7-12.0) % Eos % (Auto) 0.4 L (0.9-7.0) % Baso % (Auto) 0.3 (0.2-2.0) % Neut # (Auto) 5.5 (1.4-6.5) 10^3/uL Lymph # (Auto) 1.0 L (1.2-3.8) 10^3/uL Mclennan # (Auto) 0.4 (0.3-0.8) 10^3/uL Eos # (Auto) 0.0 (0.0-0.7) 10^3/uL Baso # (Auto) 0.0 (0.0-0.1) 10^3/uL Abs Immat Gran (auto) 0.03 (0.00-0.03) 10^3/uL Imm/Tot Granulo (auto) 0.4 (0.0-0.5) % Sodium 142 (136-145) mmol/L Potassium 4.5 (3.5-5.1) mmol/L Chloride 106 (98-107) mmol/L Carbon Dioxide 24.5 (21.0-32.0) mmol/L Anion Gap 16.0 BUN 13.0 (7.0-18.0) mg/dL Creatinine 1.09 (0.70-1.30) mg/dL Est GFR ( Amer) >60 (>=60 mL/min/1.73m^2) Est GFR (Non-Af Amer) >60 (>=60 mL/min/1.73m^2) BUN/Creatinine Ratio 11.9 Glucose 101 (74-106) mg/dL Calcium 9.4 (8.5-10.1) mg/dL Imaging Data CT scan - head: Radiologist's impression: ITS Impressions Head CT 11/09/24 11:54 IMPRESSION: NO ACUTE INTRACRANIAL ABNORMALITY. Impression dictated by: Juan Luis Reilly M.D. 11/09/2024 2:00 PM Dictation Location: [place] [address] Electronically authenticated by: [id number] Y Date: 11/09/2024 14:00 ECG Data Attestation: I personally reviewed and interpreted this ECG as follows: (EKG on my interpretation shows normal sinus rhythm with rate of 75 and no acute change) Discharge Plan Discharge Chief Complaint: Seizure Clinical Impression: Generalized seizure Patient Disposition: Home, Self-Care Time of Disposition Decision: 14:11 Condition: Good Mode of Transportation: Private Vehicle Prescriptions / Home Meds: No Action Mintox Plus 200-200-25 mg tablet,chewable 1 tab PO TID bupropion HCl 100 mg tablet 100 mg PO BID cyproheptadine 4 mg tablet 4 mg PO DAILY guanfacine 2 mg tablet 2 mg PO TID haloperidol 20 mg tablet 20 mg PO BID Linzess 290 mcg capsule 290 mcg PO DAILY lisdexamfetamine 70 mg capsule 70 mg PO DAILY metoprolol tartrate 100 mg tablet 100 mg PO TID metoprolol tartrate 25 mg tablet 25 mg PO TID montelukast 10 mg tablet 10 mg PO DAILY naltrexone 50 mg tablet 100 mg PO BID omeprazole 40 mg capsule,delayed release(DR/EC) 40 mg PO DAILY prochlorperazine maleate 10 mg tablet 15 mg PO DAILY quetiapine 400 mg tablet 800 mg PO HS Print Language: Korean Instructions: New-Onset Seizure in Adults (ED) Referrals: MARCIAL MOSS DO [Primary Care Provider, Family Practice] - 1 week Malika Turcios DO [Physician, Neurology] - 1 week
[2024-11-09 12:49] LABS: Basophils Percent Auto 0.3 % (0.2-2.0); Eosinophils Percent Auto 0.4 % (0.9-7.0); Hematocrit 41.8 % (42.0-54.0); Hemoglobin 14.1 g/dL (14.0-18.0); Immature Granulocytes Abs Auto 0.03 10^3/uL (0.00-0.03); Immature Granulocytes Pct Auto 0.4 % (0.0-0.5); Lymphocytes Percent Auto 14.2 % (20.5-60.0); Mean Corpuscular HGB Conc 33.7 g/dL (29.9-35.2); Mean Corpuscular Hemoglobin 29.6 pg (25.9-34.0); Mean Corpuscular Volume 87.6 fL (80.0-94.0); Mean Platelet Volume 10.3 fL (9.5-13.5); Monocytes Absolute Auto 0.4 10^3/uL (0.3-0.8); Monocytes Percent Auto 6.2 % (1.7-12.0); Neutrophils Absolute Auto 5.5 10^3/uL (1.4-6.5); Neutrophils Percent Auto 78.5 % (43.0-75.0); Platelet Count 203 10^3/uL (150-450); Red Blood Count 4.77 10^6/uL (4.70-6.10); Red Cell Distribution Width 12.7 % (11.0-15.0)
[2024-11-09 12:54] LABS: BUN Creatinine Ratio 11.9; Calcium 9.4 mg/dL (8.5-10.1); Carbon Dioxide 24.5 mmol/L (21.0-32.0); Chloride 106 mmol/L (98-107); Estimated GFR (African America >60 (>=60 mL/min/1.73m^2); Estimated GFR (Non-African Ame >60 (>=60 mL/min/1.73m^2); Glucose 101 mg/dL (74-106); Potassium 4.5 mmol/L (3.5-5.1); Sodium 142 mmol/L (136-145)
--- NOTE | 2024-11-09 14:25 | XR_ITS ---
The [address] [address] Patient Name: RENA RUSH MRN: [id number] date: 1985 Sex: M Assigned Patient Location: ER Current Patient Location: ER Accession/Order Number: [id number] Exam Date: 11/09/2024 15:08 Report Date: 11/09/2024 15:11 At the request of: JESUS DAVIS MD Procedure: XR foot LT min 3V LEFT FOOT - 3 views CLINICAL HISTORY: difficulty bearing weight to left foot. COMPARISON: None FINDINGS: Soft tissue swelling along the forefoot. There is subtle lucency medial/proximal base of the first metatarsal. Questionable lucency involving the cuboid. On the oblique image there is a fracture through the base of the fourth metatarsal. Questionable nondisplaced fracture through the third and fourth metatarsal and possibly fifth metatarsal as well XR/XR foot LT min 3V IMPRESSION: Findings worrisome for Lisfranc fracture dislocation type injury with additional fractures of the base of the second third fourth and fifth metatarsals. Impression dictated by: Juan Luis Reilly M.D. 11/09/2024 3:11 PM Dictation Location: [place] [address] Electronically authenticated by: [id number] Y Date: 11/09/2024 15:11
--- NOTE | 2024-11-09 14:58 | CT_ITS ---
The [address] [address] Patient Name: RENA RUSH MRN: [id number] date: 1985 Sex: M Assigned Patient Location: ER Current Patient Location: ER Accession/Order Number: [id number] Exam Date: 11/09/2024 15:40 Report Date: 11/09/2024 15:46 At the request of: JESUS DAVIS MD Procedure: CT foot LT wo con CT FOOT WITHOUT CONTRAST: CLINICAL HISTORY: pain COMPARISON: 03/10/2024 TECHNIQUE: Contiguous axial unenhanced images were obtained through the left foot. This CT exam was performed using one or more following dose reduction techniques: Automated exposure control, adjustment of the mA and/or kV according to patient size, or use of iterative reconstruction technique. FINDINGS: There are comminuted fractures involving the base of the second through the Fourth metatarsals. There is an oblique fracture through the medial proximal first metatarsal and the medial aspect of the first/medial cuneiform within the region of the Lisfranc ligament. Subtle fracture involving the medial base of the fifth metatarsal. There is a fracture through the lateral aspect of the cuboid as well. Calcaneus, talus and visualized tibia and fibula intact. CT/CT foot LT wo con IMPRESSION: Fracture through the base of the first through fifth metatarsals appearing comminuted involving the second through fourth metatarsal bases Fracture involving the medial first metatarsal and medial first cuneiform within the region of Lisfranc ligament. Lateral aspect cuboid fracture Impression dictated by: Juan Luis Reilly M.D. 11/09/2024 3:46 PM Dictation Location: [place] [address] Electronically authenticated by: [id number] Y Date: 11/09/2024 15:46
== END 2024-11-09 16:41 | disposition home or self-care (01) ==
PROVIDERS: Emergency Provider Emergency Medicine; PCP Family Medicine
DX: R56.9 Unspecified convulsions (principal); S92.322A Displaced fracture of second metatarsal bone, left foot, initial encounter for closed fracture; S92.332A Displaced fracture of third metatarsal bone, left foot, initial encounter for closed fracture; S92.342A Displaced fracture of fourth metatarsal bone, left foot, initial encounter for closed fracture; S92.312A Displaced fracture of first metatarsal bone, left foot, initial encounter for closed fracture; X58.XXXA Exposure to other specified factors, initial encounter; S92.242A Displaced fracture of medial cuneiform of left foot, initial encounter for closed fracture
CPT/HCPCS: 36415; 70450; 73630; 73700; 80048; 85025; 93005; 99285

== ENCOUNTER 2024-11-21 10:04 | Outpatient (OUT) | payer MEDICARE, MEDICAID, SELFPAY ==
--- OUTSIDE RECORDS SUMMARY | 2024-11-11 15:00 | XMS_ITS | Encounter Summary ---
Author Organization [facility] Address [address] [place] [address] Care Team Providers Care Automatic Bow Maker Machine Tender Name Role Phone Reji Platt MD Primary Care Provider + [phone] Reason for Referral * Consultation (Stat) - Pending Review Specialty Diagnoses / Procedures Referred By Mykel garduno Referred To Contact Orthopaedic Surgery Diagnoses Lisfranc dislocation, left, initial encounter Shon Dorman DPM [address] [address] Phone: tel: fax: Patricia Bellamy MD [address] [place] [address] [place] [address] Phone: tel: fax: Referral ID Status Reason Start Date Expiration Date Visits Requested Visits Authorized [id number] Pending Review Specialty Services Required 11/16/2024 2025 1 1 Reason for Visit * Reason Comments Foot/ankle Fracture Poss fx Encounter Details Date Type Department Care Team (Late st Contact Info) Description 11/11/2024 3:00 PM EDT Office Visit [facility] [address] [place] [address] Shon Dorman DPM [address] [address] Lisfranc dislocation, left, initial encounter (Primary Dx) Social History Tobacco Use Types Packs/Day Years Used Date Smoking Tobacco: Never Tobacco Cessation:Counseling Given: Yes Alcohol Use Standard Drinks/Week Comments Never 0 (1 standard drink = 0.6 oz pur e alcohol) Caffeine intake: none Sex and Gender Information Value Date Recorded Sex Assigned at Not on file Legal Sex Male 8:24 PM EDT Gender Identity Not on file Sexual Orientation Not on file documented as of this encounter Last Filed Vital Signs Vital Sign Reading Time Taken Comments Blood Pressure - - Pulse - - Temperature - - Respiratory Rate 16 11/11/2024 3:06 PM EDT Oxygen Saturation - - Inhaled Oxygen Concentration - - Weight 69.9 kg (154 lb) 11/11/2024 3:06 PM EDT Height 175.3 cm (5' 9 ) 11/11/2024 3:06 PM EDT Body Mass Index 22.74 11/11/2024 3:06 PM EDT documented in this encounter Progress Notes * Shon Dorman DPM - 11/11/2024 3:00 PM EDT Patient: Luis Bailey : 1985 PCP: Reji Platt MD SUBJECTIVE This is a 39 y.o. male that presents today with caregiver for left foot trauma sustained proximally3 days ago. He was seen in [facility] with diagnosis of Lisfranc fracture from CT and x-rays. Patient is nonverbal noncommunicative and has only history of seizures according to notes. Caregiver states that he has not been putting any weight on his left foot and is wheelchair bound at this time and was given a cam walker boot however has not been wearing due to not willing to wear. Patient had seizure at time of injury with injury sustained post seizure Allergies: No Known Allergies Past Medical History: Past Medical History: Diagnosis Date ADHD (attention deficit hyperactivity disorder) Autism (HCC) Constipation Edentulous GERD (gastroesophageal reflux disease) Hiatal hernia History of medical problems Profound Mental Retardation History of medical problems Giddy-Reactivity Syndrome Hyperopia low Hypertension Insomnia OCD (obsessive compulsive disorder) Peptic ulcer disease Seasonal allergies Severe intellectual disability Medications: Current Outpatient Medications: acetaminophen (Tylenol) 325 MG tablet, every 4 (four) hours (Patient not taking: Reported on 07/03/2024), Disp: , Rfl: bisacodyl (Dulcolax) 10 MG suppository, Insert 10 mg into the rectum, Disp: , Rfl: buPROPion (Wellbutrin) 100 MG tablet, , Disp: , Rfl: cloNIDine (Catapres) 0.2 MG tablet, 1 (one) time each day at the same time (Patient not taking: Reported on 07/03/2024), Disp: , Rfl: dicyclomine (Bentyl) 10 MG capsule, TAKE ONE CAPSULE BY MOUTH FOUR TIMES A DAY NEEDED, Disp: , Rfl: guaiFENesin (Mucinex) 600 MG 12 hr tablet, Take 1,200 mg by mouth (Patient not taking: Reported on 07/03/2024), Disp: , Rfl: guanFACINE (Tenex) 2 MG tablet, Take by mouth, Disp: , Rfl: haloperidol (Haldol) [...] MOUTH 4 TIMES DAILY, Disp: , Rfl: mirtazapine (Remeron) 15 MG tablet, Take 15 mg by mouth at bedtime, Disp: , Rfl: montelukast (Singulair) 10 MG [...] mouth in the morning., Disp: , Rfl: Social History: Social History Socioeconomic History Marital status: Unmarried Spouse name: Not on file Number of children: Not on file Years of education: Not on file Highest education level: Not on file Occupational History Not on file Tobacco Use Smoking status: Never Smokeless tobacco: Not on file Vaping Use Vaping status: Never Used Substance and Sexual Activity Alcohol use: Never Comment: Caffeine intake: none Drug use: Not on file Sexual activity: Not on file Other Topics Concern Not on file Social History Narrative Not on file Social Drivers of Health Financial Resource Strain: Not on file Food Insecurity: Not on file Transportation Needs: Not on file Physical Activity: Not on file Stress: Not on file Social Connections: Not on file Intimate Partner Violence: Not on file Housing Stability: Not on file ROS: General: denies fever, chills, fatigue, malaise Gastrointestinal: denies abdominal pain, ulcers, or changes in appetite or bowel habits Musculoskeletal: denies arthritis, denies loss of strength, pain to hip, knees, back Cardiovascular: denies CP, palpitations, irregular rhythms OBJECTIVE LE EXAM: DERM: Positive hair growth to b/l feet with good skin turgor noted. Negative openings in skin. Notable edema to left foot with negative openings and skin VASC: Palpable pedal pulsed b/l with warm to cool tibia to toes b/l NEURO: Gross sensation intact digits 1-10 and b/l feet ORTHO: +5/5 DF/PF/IN/EV right, +5/5 DF/PF/IN/EV left. 20 degrees inversion and 10 degrees eversion STJ b/l. Ankle ROM less than 10 degrees b/l. Positive pain on palpation to left 2nd metatarsal base region Review of [facility] radiology and CT scan reports. XR left foot: Lisfranc fx with nondisplaced base fx's 3,4,[address] left foot: Fracture base of 1-5 metatarsals appearing comminuted 2,3,4 metatarsal bases. Fracture involving the medial first metatarsal and medial first cuneiform within the region of the lisfranc ligament. Lateral aspect cuboid fx. Personal review of radiographs and CT on disc demonstrates complex Lisfranc fracture with definitive comminuted fracture of base of 1,2 metatarsals with slight step off of first and and 2nd metataralfractures and dislocation. 3,4,5 base fractures appear mostly nondisplaced ASSESSMENT 1. Lisfranc dislocation, left, initial encounter PLAN Reviewed ER report with history of left left foot Lisfranc injury which CT scan confirms. Will needto obtain disc copies of CT scan as well as reports as well as x-rays as well as reports as patientunable to have x-ray today in office. Will contact [facility] for further course of action once obtained Recommend continue with wheelchair and nonweightbearing at this time After reviewed of CT/radiograph disc the above findings demonstrate a complex lisfranc fracture. I recommend referral for Tertiary care facility based on above findings and need for inpatient stay due to patient physical needs. Will refer to [facility] Dr. Bellamy. Shon Droman DPM documented in this encounter Miscellaneous Notes * Addendum Note - Shon Dorman DPM - 11/11/2024 3:00 PM EDTAddended by: SHON DORMAN on: 11/16/2024 10:14 AM Modules accepted: Orders documented in this encounter Plan of Treatment Upcoming Encounters Date Type Department Care Team (Late st Contact Info) Description 12/31/2024 10:15 AM EDT Procedure [facility] [address] [place] [place] [id number] Alejandro Michelle DPM [address] [place], [place] [id number] Scheduled Referrals Name Type Priority Associated Diagnoses Order Schedule Ambulatory referral to Orthopaedic Surgery Outpatient Referral STAT Lisfranc dislocation, left, initial encounter Expected: 11/16/2024 (Approximate), Expires: 05/19/2025 documented as of this encounter Visit Diagnoses Diagnosis Lisfranc dislocation, left, initial encounter- Primary documented in this encounter Care Teams Automatic Bow Maker Machine Tender Relationship Specialty Start Date End Date Reji Platt MD [address] [facility] [address] [place], [place] [id number] PCP - General Family Medicine 01/01/24 documented as of this encounter
--- OUTSIDE RECORDS SUMMARY | 2024-11-19 14:40 | XMS_ITS | Encounter Summary ---
Author Organization [facility] Address [address] [place] [address] Care Team Providers Care Recreation Facility Attendant Name Role Phone Reji Platt MD Primary Care Provider Reason for Visit * Reason Comments Foot/ankle Fracture LT foot fracture Encounter Details Date Type Department Care Team (Late st Contact Info) Description 11/19/2024 2:40 PM EDT Office Visit [facility] [address] [place] [address] Byron Velez, DPM [facility]AC[facility]AS [address] [place] [address] Lisfranc dislocation, left, initial encounter (Primary Dx); Left foot pain; Closed displaced fracture of second metatarsal bone of left foot, initial encounter; Closed displaced fracture of third metatarsal bone of left foot, initial encounter; Closed displaced fracture of fourth metatarsal bone of left foot, initial encounter Social History Tobacco Use Types Packs/Day Years [...] - - Temperature - - Respiratory Rate - - Oxygen Saturation - - Inhaled Oxygen Concentration - - Weight 69.9 kg (154 lb) 11/19/2024 2:11 PM EDT Height 175.3 cm (5' 9 ) 11/19/2024 2:11 PM EDT Body Mass Index 22.74 11/19/2024 2:11 PM EDT documented in this encounter Progress Notes * Byron Velez DPM FACFAS - 11/19/2024 2:40 PM EDT Patient: Luis Bailey : 1985 PCP: Reji Platt MD SUBJECTIVE This is a 39 y.o. male that presents today with caregiver for left foot trauma sustained [id number] days ago. He was seen in [place] ER with diagnosis of Lisfranc fracture from CT and x-rays. Patient is nonverbal noncommunicative and has only history of seizures according to notes. Did not appear to have a seizure of the time of the incident according to the caregiver Caregiver states that hehas not been putting any weight on his left foot and is wheelchair bound at this time and was givena cam walker boot however has not been wearing due to not willing to wear. Patient had seizure at time of injury with injury sustained post seizure. Allergies: No Known Allergies Past Medical History: [...] left 2nd metatarsal base region Review of [facility] radiology and CT scan reports. XR left foot: Lisfranc fx with nondisplaced base fx's 3,4,5 metatarsals. Appear to be slightly comminuted CT left foot: Fracture base of 1-5 [...] ASSESSMENT 1. Lisfranc dislocation, left, initial encounter 2. Left foot pain 3. Closed displaced fracture of second metatarsal bone of left foot, initial encounter 4. Closed displaced fracture of third metatarsal bone of left foot, initial encounter 5. Closed displaced fracture of fourth metatarsal bone of left foot, initial encounter PLAN I Reviewed ER report with history of left left foot Lisfranc injury which CT scan confirms. After reviewed of CT/radiograph disc the above findings demonstrate a complex lisfranc fracture. Recommending the patient undergo an ORIF displaced Lisfranc's fracture dislocation and lesser metatarsal fractures. I did placed the patient of the multilayer compressive Unna boot for immobilization. Recommendcontinue with wheelchair and nonweightbearing at this time. Surgery will be scheduled on Sunday clearance per Dr. Platt. The patient was educated on the pre, laurie, postoperative course of the procedure in great detail. We discussed further conservative therapies which the patient has attempted and has failed. I discussed the surgical procedure in great detail including the risks and possible complications. We discussed the following complications in great detail including but not limited to:Pain, infection, prolonged swelling, numbness, tingling, burning, nonhealing wound, nonunion, malunion, chronic pain, development of complex regional pain syndrome, development of deep venous thrombosis. Patient fully understood all possible risks and complications. All questions have been asked and answered. They have consented for the above-stated procedure. PATRICK Majano documented in this encounter Plan of Treatment Upcoming Encounters Date Type Department Care Team (Late st Contact Info) Description 12/31/2024 10:15 AM EDT Procedure [facility] [address] [place] [address] Alejandro Michelle DPM [address] [place] [address] documented as of this encounter Procedures Procedure Name Priority Date/Time Associated Diagnosis Comments XR FOOT 3+ VIEWS LEFT Routine 11/19/2024 2:10 PM EDT Lisfranc dislocation, left, initial encounter Closed displaced fracture of second metatarsal bone of left foot, initial encounter Closed displaced fracture of third metatarsal bone of left foot, initial encounter documented in this encounter Results * XR foot 3+ views left (11/19/2024 2:10 PM EDT) Anatomical Region Laterality Modality Lower Extremities, Foot Left Radiogra phic Imaging Narrative 11/19/2024 9:35 PM EDT Imaging Result: XR left foot: Lisfranc fx with nondisplaced base fx's 3,4,5 metatarsals. Appear to be slightly comminuted Byron Velez DPM FAC[facility]AS IMG XR PROCEDURES Edited Result - Final documented in this encounter Visit Diagnoses Diagnosis Lisfranc dislocation, left, initial encounter- Primary Left foot pain Pain in soft tissues of limb Closed displaced fracture of second metatarsal bone of left foot, initial encounter Closed displaced fracture of third metatarsal bone of left foot, initial encounter Closed displaced fracture of fourth metatarsal bone of left foot, initial encounter documented in this encounter Care Teams Recreation Facility Attendant Relationship Specialty Start Date End Date Reji Platt MD [address] [facility] [address] [place] [address] PCP - General Family Medicine 01/01/24 documented as of this encounter
--- OUTSIDE RECORDS SUMMARY | 2024-11-21 10:08 | XMS_ITS | Encounter Summary ---
Author Organization [facility] Address [address] [place] [address] Care Team Providers Care J2Ee Architect Name Role Phone Reji Platt MD Primary Care Provider Reason for Visit * Reason Onset Date Comments PROCEDURE 11/20/2024 Encounter Details Date Type Department Care Team (Late st Contact Info) Description 11/20/2024 Telephone [facility] [address] [place] [address] Cate Ta PROCEDURE Social History Tobacco Use Types Packs/Day Years Used Date Smoking Tobacco: Never Alcohol Use Standard Drinks/Week Comments Never 0 (1 standard drink = 0.6 oz pur e alcohol) Caffeine intake: none Sex and Gender Information Value Date Recorded Sex Assigned at Not on file Legal Sex Male 8:24 PM EDT Gender Identity Not on file Sexual Orientation Not on file documented as of this encounter Miscellaneous Notes * Telephone Encounter - Cate Ta - 11/20/2024 3:17 PM EDT [facility] C[facility]: 14646 PST ORDERS SENT TO [facility] PATIENT HAS MEDICARE, FOLLOWS MEDICARE GUIDELINES I talked to nursing department at [facility] and they are going to be having Dr. Platt clear patient. He is their in-house provider. Surgery scheduled on both portals.demographics, insurance and office notes uploaded to sis portal. documented in this encounter Plan of Treatment Upcoming Encounters Date Type Department Care Team (Late st Contact Info) Description 12/31/2024 10:15 AM EDT Procedure Visit [facility] [address] [place] [address] Alejandro Michelle, PATRICK [address] [place], [place] [phone] documented as of this encounter Visit Diagnoses Not on filedocumented in this encounter Care Teams J2Ee Architect Relationship Specialty Start Date End Date Reji Platt MD [address] [place] [address] [address] [place] [address] PCP - General Family Medicine 01/01/24 documented as of this encounter
--- OUTSIDE RECORDS SUMMARY | 2024-11-21 10:08 | XMS_ITS | Encounter Summary ---
Author Organization [facility] Address [address] [place] [address] Care Team Providers Care Lime Kiln Tender Name Role Phone Reji Platt MD Primary Care Provider [phone] Encounter Details Date Type Department Care Team (Late Contact Info) Description 01/22/2023 Abstract [facility] [address] [place] [address] Alejandro Michelle DPM [address] [place], [place] [id number] Social History Tobacco Use Types Packs/Day Years Used Date Smoking Tobacco: Never Tobacco Cessation:Counseling Given: Not Answered Alcohol Use Standard Drinks/Week Comments Never 0 (1 standard drink = 0.6 oz pur e alcohol) Caffeine intake: none Sex and Gender Information Value Date Recorded Sex Assigned at Not on file Legal Sex Male 8:24 PM EDT Gender Identity Not on file Sexual Orientation Not on file documented as of this encounter Plan of Treatment Upcoming Encounters Date Type Department Care Team (Late st Contact Info) Description 12/31/2024 10:15 AM EDT Procedure Visit [facility] [address] [place] [address] Alejandro Michelle DPM [address] [place], [place] [phone] documented as of this encounter Visit Diagnoses Not on filedocumented in this encounter Care Teams Lime Kiln Tender Relationship Specialty Start Date End Date Reji Platt MD [email or web address] [place], [place] [id number] PCP - General Family Medicine 01/01/24 documented as of this encounter
--- OUTSIDE RECORDS SUMMARY | 2024-11-21 10:08 | XMS_ITS | Encounter Summary ---
Author Organization [facility] Address [address] [place] [address] Care Team Providers Care Registration Coordinator Name Role Phone Reji Platt MD Primary Care Provider [phone] Encounter Details Date Type Department Care Team (Late Contact Info) Description 11/11/2024 Bamboo flowsheet [facility] [address] [place] [address] Shon Dorman DPM [address] [address] Social History Tobacco Use Types Packs/Day Years [...] Encounters Date Type Department Care Team (Late Contact Info) Description 12/31/2024 10:15 AM EDT Procedure Visit [facility] [address] [place] [address] Alejandro Michelle DPM [address] [place], [place] [address] documented as of this encounter Visit Diagnoses Not on filedocumented in this encounter Care Teams Registration Coordinator Relationship Specialty Start Date End Date Reji Platt MD [address] [place] [address] PCP - General Family Medicine 01/01/24 documented as of this encounter
--- OUTSIDE RECORDS SUMMARY | 2024-11-21 10:08 | XMS_ITS | Encounter Summary ---
Author Organization [facility] Address [address] [place] [address] Care Team Providers Care Phytopathology Teacher Name Role Phone Reji Platt MD Primary Care Provider [phone] Encounter Details Date Type Department Care Team (Late st Contact Info) Description 11/19/2024 Bamboo flowsheet [facility] [address] [place] [address] Byron Velez, DPM FACFAS [address] [place] [address] Social History Tobacco Use Types Packs/Day Years [...] EDT Procedure Visit [facility] [address] [place] [phone] Alejandro Michelle DPM [address] [place], [place] [phone] documented as of this encounter Visit Diagnoses Not on filedocumented in this encounter Care Teams Phytopathology Teacher Relationship Specialty Start Date End Date Reji Platt MD [address] [place] [address] PCP - General Family Medicine 01/01/24 documented as of this encounter
--- OUTSIDE RECORDS SUMMARY | 2024-11-21 10:08 | XMS_ITS | Clinical Summary ---
Author Organization [facility] Address [address] [place] [address] Care Team Providers Care Inclusion Intern Name Role Phone Reji Platt MD Primary Care Provider Allergies Active Allergy Reactions Criticality Noted Date Comments Environmental/Seasonal 05/22/2018 Medications ARIPiprazole (ABILIFY) 15 MG tablet Take 45 mg by mouth daily. Active Alum & Mag Hydroxide-Simet h (MINTOX PLUS PO) Take 1 tablet by mouth 4 times daily as needed. Active lubiprostone (AMITIZA) 8 MCG CAPS capsule Take 24 mcg by mouth 2 times daily (with meals) Active Prochlorperazin e Maleate (COMPAZINE PO) Take 15 mg by mouth daily. Active cloNIDine (CATAPRES) 0.2 MG tablet Take 0.2 mg by mouth 2 times daily. Active docusate sodium (COLACE) 100 MG capsule Take 100 mg by mouth 3 times daily. Active metoprolol (LOPRESSOR) 100 MG tablet Take 100 mg by mouth 2 times daily. Active Naltrexone HCl (REVIA PO) Take 50 mg by mouth daily Active GuanFACINE HCl (TENEX) 2 MG TABS Take 2 mg by mouth 3 times daily. Active lisdexamfetamin e (VYVANSE) 50 MG capsule Take 70 mg by mouth every morning. . Active ranitidine (ZANTAC) 150 MG capsule Take 150 mg by mouth 3 times daily. Active OLANZapine (ZYPREXA PO) Take 20 mg by mouth daily Active iloperidone (FANAPT) 4 MG TABS tablet Take 4 mg by mouth Daily with lunch Active iloperidone (FANAPT) 8 MG TABS tablet Take 8 mg by mouth 2 times daily Active montelukast (SINGULAIR) 10 MG tablet Take 10 mg by mouth nightly Active omeprazole (PRILOSEC) 40 MG delayed release capsule Take 40 mg by mouth daily Active QUEtiapine (SEROQUEL) 300 MG tablet Take 300 mg by mouth nightly Active acetaminophen (TYLENOL) 325 MG tablet Take 650 mg by mouth every 6 hours as needed for Pain Active loratadine (CLARITIN) 10 MG tablet Take 10 mg by mouth daily Active bisacodyl (DULCOLAX) [address] 10 mg rectally daily as needed for Constipation Active benzonatate (TESSALON) 100 MG capsule Take 100 mg by mouth 3 times daily as needed for Cough Active guaiFENesin (MUCINEX) 600 MG extended release tablet Take 1,200 mg by mouth 2 times daily as needed for Congestion Active ondansetron (ZOFRAN) 4 MG tablet Take 4 mg by mouth every 6 hours as needed for Nausea or Vomiting Active senna (SENOKOT) 8.6 MG tablet Take 1 tablet by mouth 2 times daily as needed for Constipation Active ARIPiprazole (ABILIFY) 30 MG tablet Take 30 mg by mouth daily Active Active Problems Patient Care Coordination No te Formatting of this note migh t be different from the original. Dr Andres - [facility] Contact [phone] Problem Noted Date Diagnosed Date GERD (gastroesophageal reflux disease) 5 Social History Tobacco Use Types Packs/Day Years Used Date Smoking Tobacco: Never Smokeless Tobacco: Never Tobacco Cessation:Counseling Given: No Alcohol Use Standard Drinks/Week Comments No 0 (1 standard drink = 0.6 oz pur e alcohol) Sex and Gender Information Value Date Recorded Sex Assigned at Not on file Legal Sex Male 3:34 PM EST Gender Identity Not on file Sexual Orientation Not on file Last Filed Vital Signs Vital Sign Reading Time Taken Comments Blood Pressure 109/70 05/30/2018 10:00 AM EST Pulse 88 05/30/2018 10:00 AM EST Temperature 36.1 C (97 F) 05/30/2018 9:45 AM EST Respiratory Rate 18 07/18/2018 8:29 PM EST Oxygen Saturation 100% 05/30/2018 10:00 AM EST Inhaled Oxygen Concentration - - Weight 71.7 kg (158 lb) 05/30/2018 8:10 AM EST Height 174 cm (5' 8.5 ) 05/30/2018 8:10 AM EST Body Mass Index 23.67 05/30/2018 8:10 AM EST Plan of Treatment Not on file Insurance [place] Advance Directives Documents on File Type Date 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
--- OUTSIDE RECORDS SUMMARY | 2024-11-21 10:08 | XMS_ITS | Patient Health Record ---
Author Organization [facility] Address [address] [place] [address] Care Team Providers Care Cushion Gum Applicator Name Role Phone Eulogio Jewell Primary Care Provider [phone] Marychuy Clayton Unavailable Reason For Referral No Information Encounters Encounter Location Date Provider Diagnosis [facility] [address] [place] [address] 03/18/2024 Eulogio Jewell [facility] [address] [facility] [address] 04/29/2024 Marychuy Grimm Encounter for dental examination and cleaning with abnormal findings Z01.21 Assessments Encounter Date Diagnosis (ICD Code) Assessment Notes Treatment Notes Treatment Clinical Notes Section Notes 04/29/2024 Encounter for dental examination and cleaning with abnormal findings (ICD-10 - Z01.21) Plan Of Treatment Next Appt Details Provider Name:Eulogio ferguson, 04/30/2025 10:00:00 AM, [address] [facility] [place], [address], Insurance Providers Payer Name Payer Address Payer Phone Subscriber Number Group Number Insured Name Patient Relationship to Insured Coverage Start Date Coverage End Date DENTAL MEDICAID [facility] [address] [place] [phone] [id number] RENA RUSH Self - patient is the insured 3
--- OUTSIDE RECORDS SUMMARY | 2024-11-21 10:08 | XMS_ITS | Clinical Summary ---
Author Organization [facility] Address [address] [place] [address] Care Team Providers Care Vice President For Instruction Name Role Phone Reji Platt MD Primary Care Provider Allergies No known active allergies Medications buPROPion (Wellbutrin) 100 MG tablet 4 Active cloNIDine (Catapres) 0.2 MG tablet 1 (one) time each day at the same time Active bisacodyl (Dulcolax) 10 MG suppository Insert 10 mg into the rectum Active dicyclomine (Bentyl) 10 MG capsule TAKE ONE CAPSULE BY MOUTH FOUR TIMES A DAY NEEDED 3 Active guaiFENesin (Mucinex) 600 MG 12 hr tablet Take 1,200 mg by mouth Active haloperidol (Haldol) 20 MG tablet 4 Active Linzess 290 MCG capsule Take 290 mcg by mouth in the morning. 4 Active loratadine (Claritin) 10 MG tablet TAKE ONE TABLET BY MOUTH ONCE DAILY CLARITIN Active metoprolol tartrate (Lopressor) 100 MG tablet Take 100 mg by mouth in the morning and 100 mg before bedtime. Active montelukast (Singulair) 10 MG tablet Take 10 mg by mouth at bedtime Active naltrexone (Depade) 50 MG tablet 1 (one) time each day at the same time Active omeprazole (PriLOSEC) [address] capsule Take 40 mg by mouth in the morning. Active polyethylene glycol, PEG, 3350 (Glycolax) 17 GM/SCOOP powder TAKE 17 GRAMS BY MOUTH ONCE DAILY IF NO BOWEL MOVEMENT IN 4 DAYS NEEDED 4 Active prochlorperazine (Compazine) 10 MG tablet 4 Active QUEtiapine (SEROquel) 400 MG tablet 4 Active Vyvanse 70 MG capsule Take 70 mg by mouth in the morning. Active Mintox Plus 200-200-25 MG chewable tablet CHEW 1 TABLET BY MOUTH 4 TIMES DAILY 4 Active acetaminophen (Tylenol) 325 MG tablet every 4 (four) hours Active sennosides (Senokot) 8.6 MG tablet 1 (one) time each day at the same time Active ondansetron (Zofran) 4 MG tablet every 12 (twelve) hours Active guanFACINE (Tenex) 2 MG tablet Take by mouth Active mirtazapine (Remeron) 15 MG tablet Take 15 mg by mouth at bedtime Active Active Problems No known active problems Encounters Date Type Department Care Team Description 11/20/2024 Telephone [facility] [address] [place] [address] Cate Ta PROCEDURE 11/19/2024 2:40 PM EDT Office Visit [facility] [address] [place] [address] Byron Velez, DPM FACFAS Lisfranc dislocation, left, initial encounter (Primary Dx); Left foot pain; Closed displaced fracture of second metatarsal bone of left foot, initial encounter; Closed displaced fracture of third metatarsal bone of left foot, initial encounter; Closed displaced fracture of fourth metatarsal bone of left foot, initial encounter 11/19/2024 2:15 PM EDT Ancillary Procedure [facility] [address] [place] [address] 11/19/2024 Orders Only [facility] [address] [place] [address] Cate Ta Preop examination 11/19/2024 Bamboo flowsheet [facility] [address] [place] [address] Byron Velez, DPM FACFAS 11/17/2024 Abstract [facility] [address] [place] [address] Shon Dorman DPM 11/17/2024 Telephone [facility] [address] [facility] [place] [place] [address] Gayle Kruse MA 11/11/2024 3:00 PM EDT Office Visit [facility] [address] [place] [address] Shon Dorman DPM Lisfranc dislocation, left, initial encounter (Primary Dx) 11/11/2024 Telephone [facility] [address] [place] [address] Shon Dorman DPM Procedure 11/11/2024 Bamboo flowsheet [facility] [address] [place] [address] Shon Dorman DPM from Last 3 Months Social History Tobacco Use Types Packs/Day Years [...] Mass Index 22.74 11/19/2024 2:11 PM EDT Plan of Treatment Upcoming Encounters Date Type Department Care Team (Late st Contact Info) Description 12/31/2024 10:15 AM EDT Procedure Visit [facility] [address] [place] [address] Alejandro Michelle DPM [address] [place] [address] Health Maintenance Due Date Last Done Comments Influenza Vaccine (#1) 2025 , 05/08/2023, 03/01/2022, Additional history exists Procedures Procedure Name Priority Date/Time Associated Diagnosis Comments XR FOOT 3+ VIEWS LEFT Routine 11/19/2024 2:10 PM EDT Lisfranc dislocation, left, initial encounter Closed displaced fracture of second metatarsal bone of left foot, initial encounter Closed displaced fracture of third metatarsal bone of left foot, initial encounter from Last 3 Months Results * XR foot 3+ views left (11/19/2024 2:10 PM EDT) Anatomical Region Laterality Modality Lower Extremities, Foot Left [facility] Narrative 11/19/2024 9:35 PM EDT Imaging Result: XR left foot: Lisfranc fx with nondisplaced base fx's 3,4,5 metatarsals. Appear to be slightly comminuted Byron WALKERM FACFAS IMG XR PROCEDURES Edited Result - Final from Last [address] [place] [address] MEDICARE [place]ICAID [place] Care Teams Vice President For Instruction Relationship Specialty Start Date End Date Reji Platt MD [address] [place] [address] PCP - General Family Medicine 01/01/24
--- OUTSIDE RECORDS SUMMARY | 2024-11-21 10:08 | XMS_ITS | Encounter Summary ---
Author Organization [facility] Address [address] [place] [address] Care Team Providers Care Commodity Broker Name Role Phone Reji Platt MD Primary Care Provider [phone] Encounter Details Date Type Department Care Team (Late st Contact Info) Description 08/07/2014 Post-op Telephone [facility] General Surgery [address] [place] [address] Gayle Winchester, RN Social History Tobacco Use Types Packs/Day Years Used Date Smoking Tobacco: Never Smokeless Tobacco: Never Alcohol Use Standard Drinks/Week Comments No 0 (1 standard drink = 0.6 oz pur e alcohol) Sex and Gender Information Value Date Recorded Sex Assigned at Not on file Legal Sex Male 3:34 PM EST Gender Identity Not on file Sexual Orientation Not on file documented as of this encounter Plan of Treatment Not on file documented as of this encounter Visit Diagnoses Not on filedocumented in this encounter Care Teams Commodity Broker Relationship Specialty Start Date End Date Reji Platt MD PCP - General Family Medicine 01/27/13 documented as of this encounter
--- OUTSIDE RECORDS SUMMARY | 2024-11-21 10:08 | XMS_ITS | Encounter Summary ---
Author Organization [facility] Address [address] [place] [address] Care Team Providers Care Director Of Food And Nutrition Name Role Phone Reji Platt MD Primary Care Provider Reason for Visit * Reason Onset Date Comments Procedure 11/11/2024 Encounter Details Date Type Department Care Team ([facility] st Contact Info) Description 11/11/2024 Telephone [facility] [address] [facility] [address] [place] [address] Shon Dorman, DPStephen [address] [facility] [address] [place] [address] Procedure Social History Tobacco Use Types Packs/Day Years [...] encounter Miscellaneous Notes * Telephone Encounter - JORGE SNOW - 11/17/2024 8:[address] bellamy office- scheduled patient for 12/03 @ 3:15pm. Called [place] to let them know, they were confused as to why we were referring to someone so faraway and why the date was so far out.. they were going to be calling the office to try to get a sooner appt. * Telephone Encounter - JORGE SNOW - 11/17/2024 7:57 AM EDT Referral faxed 11/17, will call office as well. * Telephone Encounter - Shon Dorman DPM - 11/16/2024 10:12 AM EDT Referral to Dr Bellamy at [place] for complex left foot Lisfranc fracture. Please set up appt for patient and call patient facility for appt info as well. Thanks * Telephone Encounter - Shon Dorman DPM - 11/11/2024 3:49 PM EDT Please contact [facility] in Radiology for recent CT scan on disc as well as radiographs on disc with reports. Once obtained please notify me as I would need to look at these and call [facility] to determine course of care documented in this encounter Plan of Treatment Upcoming Encounters Date Type Department Care Team (Late st Contact Info) Description 12/31/2024 10:15 AM EDT Procedure Visit [facility] [address] [place] [address] Alejandro iMchelle DPM [address] [place] [address] documented as of this encounter Visit Diagnoses Not on filedocumented in this encounter Care Teams Director Of Food And Nutrition Relationship Specialty Start Date End Date Reji Platt MD [address] [place] [address] PCP - General Family Medicine 01/01/24 documented as of this encounter
--- OUTSIDE RECORDS SUMMARY | 2024-11-21 10:08 | XMS_ITS | Encounter Summary ---
Author Organization [facility] Address [address] [place] [address] Care Team Providers Care Development System Efficiency Manager Name Role Phone Reji Platt MD Primary Care Provider Encounter Details Date Type Department Care Team (Late st Contact Info) Description 11/19/2024 Orders Only [facility] [address] [place] [address] Cate Ta Preop examination Social History Tobacco Use Types Packs/Day Years [...] EDT Procedure Visit [facility] [address] [place] [address] Alejandro Michelle, DPStephen [address] [place], [place] [address] Scheduled Orders Name Type Priority Associated Diagnoses Orde r Schedule Basic metabolic panel Lab Routine Preop examination Expected: 11/19/2024 (Approximate), Expires: 01/20/2025 CBC and differential Lab Routine Preop examination Expected: 11/19/2024 (Approximate), Expires: 01/20/2025 ECG 12 lead ECG Routine Preop examination Expected: 11/19/2024 (Approximate), Expires: 11/19/2025 documented as of this encounter Visit Diagnoses Diagnosis Preop examination Unspecified pre-operative examination documented in this encounter Care Teams Development System Efficiency Manager Relationship Specialty Start Date End Date Reji Platt MD [address] [facility] [address] [place] [id number] PCP - General Family Medicine 01/01/24 documented as of this encounter
--- OUTSIDE RECORDS SUMMARY | 2024-11-21 10:08 | XMS_ITS | Encounter Summary ---
Author Organization [facility] Address [address] [place] [address] Care Team Providers Care Mortgage Loan Processing Clerk Name Role Phone Reji Platt MD Primary Care Provider Encounter Details Date Type Department Care Team (Late st Contact Info) Description 11/17/2024 Telephone [facility] [address] [place] [address] Gayle Kruse MA [address] [facility] [place] [address] Social History Tobacco Use Types Packs/Day Years [...] encounter Miscellaneous Notes * Telephone Encounter - Gayle Kruse MA - 11/17/2024 2:43 PM EDT Patient scheduled for appt with Dr. Matthews on 11/19/24 @ 2:40 * Telephone Encounter - PATRICK Majano - 11/17/2024 2:23 PM EDT Please schedule the patient for an appointment * Telephone Encounter - Gayle Kruse MA - 11/17/2024 12:36 PM EDT [place] from [place], stating that patient seen Dr. Dorman and would like to see a second option. Could you please take a look at the CT and XRAY to see if he really needs to be sent out or if you coulddo the surgery on him. The CT and Xray are on the pacs system. Geneva, RENEE - [phone] documented in this encounter Plan of Treatment Upcoming Encounters Date Type Department Care Team (Late st Contact Info) Description 12/31/2024 10:15 AM EDT Procedure Visit [facility] [address] [place] [address] Alejandro Michelle DPStephen [address] [place], [place] [address] documented as of this encounter Visit Diagnoses Not on filedocumented in this encounter Care Teams Mortgage Loan Processing Clerk Relationship Specialty Start Date End Date Reji Platt MD [address] [place] [address] PCP - General Family Medicine 01/01/24 documented as of this encounter
--- OUTSIDE RECORDS SUMMARY | 2024-11-21 10:08 | XMS_ITS | Encounter Summary ---
Author Organization [facility] Address [address] [place] [address] Care Team Providers Care Commodity Manager Name Role Phone Reji Platt MD Primary Care Provider [phone] Encounter Details Date Type Department Care Team (Late st Contact Info) Description 06/12/2023 Abstract [facility] [address] [place] [address] Alejandro Michelle DPM [address] [place], [place] [address] Social History Tobacco Use Types Packs/Day Years [...] AM EDT Procedure Visit [facility] [address] [place] [address] Alejandro Michelle DPM [address] [place], [place] [phone] documented as of this encounter Visit Diagnoses Not on filedocumented in this encounter Care Teams Commodity Manager Relationship Specialty Start Date End Date Reji Platt MD [facility] [address] [place] [address] PCP - General Family Medicine 01/01/24 documented as of this encounter
--- OUTSIDE RECORDS SUMMARY | 2024-11-21 10:08 | XMS_ITS | Encounter Summary ---
Author Organization [facility] Address [address] [place] [address] Care Team Providers Care [employer] Name Role Phone Reji Platt MD Primary Care Provider [phone] Encounter Details Date Type Department Care Team (Late Contact Info) Description 11/17/2024 Abstract [facility] [address] [place] [address] Shon Dorman DPM [address] [address] Social History Tobacco Use Types Packs/Day Years [...] AM EDT Procedure Visit [facility] [address] [place] [id number] Alejandro Michelle DPM [address] [place], [place] [id number] documented as of this encounter Visit Diagnoses Not on filedocumented in this encounter Care Teams [employer] Relationship Specialty Start Date End Date Reji Platt MD [facility] [employer] [address] [place] [address] PCP - General Family Medicine 01/01/24 documented as of this encounter
--- OUTSIDE RECORDS SUMMARY | 2024-11-21 10:09 | XMS_ITS | CCD ---
Author Organization [facility] Inform ion Partnership [facility] Care Team Providers Care Alum Plant Supervisor Name Role Phone LOAN ETIENNE I Admitting Unavailable LOAN ETIENNE I Attending Unavailable REJI MOSS Primary Care Unavailable PROVIDER, UNKNOWN Attending Unavailable PROVIDER, UNKNOWN Admitting Unavailable Uday Quinteros DDS Unavailable Rigo Kevin DDS Unavailable [phone] Eliane TIAN, Francisco Unavailable Uday Quinteros DDS Unavailable [phone] Rigo Kevin DDS Unavailable Francisco Del Rio DDS Unavailable ISA, DR REJI Byrd Admitting Unavailable MOSS, DR REJI Byrd Attending Unavailable MOSS, DR REJI Byrd Consulting Unavailable MOSS, DR REJI Byrd Primary Care Unavailable MOSS, DR REJI Byrd Admitting Unavailable MOSS, DR REJI Byrd Attending Unavailable MOSS, DR REJI Byrd Primary Care Unavailable REJI MOSS Primary Care Physician Diya Mcginnis Attending Diya Lockwood Attending Diya Lockwood Attending Theodorea Diya Abdi Attending Reji Miller MD Primary Care Provider [phone] ALEJANDRO MICHELLE Attending Unavailable SHON DORMAN Attending Unavailable ALEJANDRO MICHELLE Attending Unavailable Medications Current Medications Medication Drug Class(es) Dates Sig (Normalized) Sig (Original) acetaminophen 325 mg oral tablet (10 sources) acetaminophen (Tylenol) 325 MG tablet every 4 (four) hours Active aluminum hydroxide 200 mg / magnesium hydroxide 200 mg / simethicone 25 mg chewable tablet (11 sources) Start: 07-30-2023 Mintox Plus oral tablet, chewable Refill(s) 0 Start Date: 07/30/23 Status: Ordered Start: 06-05-2023 take 1 tablet by neena th four times daily Mintox Plus 200-200-25 MG chewable tablet CHEW 1 TABLET BY MOUTH 4 TIMES DAILY 06/05/2023 Active bisacodyl 10 mg rectal suppository (10 sources) Stimulant Laxative bisacodyl (Du lcolax) 10 MG suppository Insert 10 mg into the rectum Active 12 hr buPROPion hydrochloride 100 mg extended release oral tablet (11 sources) Aminoketone Start: 07-30-2023 buPROPion 100 mg ER Tab Refills(s) 0 Start Date: 07/30/23 Status: Ordered Start: 06-06-2023 buPROPion (Wel lbutrin) 100 MG tablet 06/06/2023 Active cloNIDine (12 sources) Central alpha-2 Adrenergic Agonist Start: 09-10-2009 clonidine BID, Refil ls(s) 0 Start Date: 09/10/09 Status: Ordered cloNIDine (Catap res) 0.2 MG tablet 1 (one) time each day at the same time Active dicyclomine hydrochloride 10 mg oral capsule (11 sources) Anticholinergic Start: 01-19-2023 take 1 capsule [...] guaiFENesin 600 mg extended release oral tablet (10 sources) guaiFENesin (Muc inex) 600 MG 12 hr tablet Take 1,200 mg by mouth Active Guanfacine (9 sources) Central alpha-2 Adrenergic Agonist Start: 09-10-2009 guanfacine Oral, Once a day (at bedtime), Refills(s) 0 Start Date: 09/10/09 Status: Ordered guanFACINE (Tene x) 2 MG tablet Take by mouth Active haloperidol 20 mg oral tablet (11 sources) Typical Antipsychotic Start: 06-06-2023 haloperidol (Haldol) [...] Status: Ordered linaclotide 0.29 mg oral capsule (11 sources) Guanylate Cyclase-C Agonist Start: 07-30-2023 Linzess 290 mcg oral capsule Refills(s) 0 Start Date: 07/30/23 Status: Ordered Start: 05-29-2023 take 1 capsule by mo [facility] in the morning Linzess 290 MCG capsule Take 290 mcg by mouth in the morning. 05/29/2023 Active lisdexamfetamine dimesylate 70 mg oral capsule (11 sources) Central Nervous System Stimulant Start: 07-30-2023 take 1 capsule by mouth once daily in the morning Vyvanse 70 mg oral capsule 70 mg, 1 cap(s), Oral, qAM, Refill(s) 0 Start Date: 07/30/23 Status: Ordered Loratadine (12 sources) Start: 09-10-2009 loratadine 10 mg, Refills(s) 0 Start Date: 09/10/09 Status: Ordered take 1 tablet by mouth once tanner y loratadine (Claritin) 10 MG tablet TAKE ONE TABLET BY MOUTH ONCE DAILY CLARITIN Active Metoprolol (12 sources) beta-Adrenergic Elías Start: 09-10-2009 metopr olol Refills(s) 0 Start Date: 09/10/09 Status: Ordered take 1 tablet by mouth in the mo [facility] metoprolol tartrate (Lopressor) 100 MG tablet Take 100 mg by mouth in the morning and 100 mg before bedtime. Active mirtazapine 15 mg oral tablet (7 sources) take 1 tablet by mouth at bedtime mirtazapine (Remeron) 15 MG tablet Take 15 mg by mouth at bedtime Active montelukast 10 mg oral tablet (11 sources) Leukotriene Receptor Antagonist Start: montelukast 10 mg Tab Refills(s) 0 Start Date: 07/30/23 Status: Ordered Naltrexone (12 sources) Opioid Antagonist Start: 0 naltrexone Refills(s) 0 Start Date: 09/10/09 Status: Ordered naltrexone (Depa de) 50 MG tablet 1 (one) time each day at the same time Active Zyprexa (2 sources) Atypical Antipsychotic Start: 09-10-2009 Zyprexa Refills(s) 0 Start Date: 09/10/09 Status: Ordered omeprazole 40 mg delayed release oral capsule (12 sources) Proton Pump Inhibitor Start: 01-01-2023 take 1 capsule by mouth once daily omeprazole 40 mg Cap-DR 40 mg = 1 cap(s), Oral, Daily, # 90 cap(s), Refills(s) 3 Start Date: 01/01/23 Status: Ordered ondansetron 4 mg oral tablet (10 sources) Serotonin-3 Receptor Antagonist ondansetron (Zofran) 4 MG tablet every 12 (twelve) hours Active polyethylene glycol 3350 61857 mg powder for oral solution (12 sources) Osmotic Laxative Start: 2023 polyethylene glycol, [...] Status: Ordered prochlorperazine 10 mg oral tablet (11 sources) Phenothiazine Start: 06-06-2023 prochlorperazi ne (Compazine) 10 MG tablet 06/06/2023 Active QUEtiapine 400 mg oral tablet (11 sources) Atypical Antipsychotic Start: 06-06-2023 QUEtiapine (SEROquel ) 400 MG tablet 06/06/2023 Active sennosides, custodial 8.6 mg oral tablet (10 sources) sennosides (Seno nicola) 8.6 MG tablet [...] hypertension (2 sources) Hypertensive disorder 07-25-2013 Chronic Fracture of lower limb (6 sources) Closed fracture of second metatarsal bone; Translations: [Displaced fracture of second metatarsal bone, left foot, initial encounter for closed fracture] 11-19-2024 Episodic Gastroduodenal ulcer (except hemorrhage) (2 sources) Peptic ulcer 07-25-2013 Chronic Joint disorders and dislocations; trauma-related (4 sources) Traumatic dislocation of joint of foot; Translations: [Dislocation of tarsometatarsal joint of left foot, initial encounter] 11-11-2024 Episodic Mycoses (2 sources) Onychomycosis due to dermatophyte ; Translations: [Tinea unguium] 01-01-2024 Episodic Nausea and vomiting (3 sources) Vomiting; Translations: [Vomiting, unspecified] Onset: 3 Episodic Other aftercare (4 sources) Other termite technician (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 Appear to be slightly comminuted [facility] Oration Radiology Study observation (narrative) [facility] [employer] Ambulatory Visit Summaryon 0 07-30-2023 Ambulatory Visit [...] you for choosing us for your care. Normal [facility] Gastroenterology Office/Clin ic Noteon 07-30-2023 Gastroenterology Office/Clinic [...] Resolved History of Present Illness per healthcare adult live in caregiver, depends on the kind of food whether [...] virus vaccine, inactivated 03/01/2022 Recorded SARS-CoV-2 (COVID-19) [id number] 03/01/2022 Recorded 2022-12-06: TPVALL influenza virus vaccine, [...] inactivated 1987 Recorded (more content not included)... [facility] Comment on above: Result Comment: Elec tronically Signed By: Ras BARBOUR, Diya Baxter\.br\Date and Time Signed: 07/30/23 11:52 EDT [facility] Recordson 07-29 [facility] Records [id number] [facility] Ambulatory Visit Summaryon 0 01-01-2023 Ambulatory Visit [...] disorder Peptic ulcer disease Seasonal allergy Normal [facility] Gastroenterology Office/Clin ic Noteon 01-01-2023 Gastroenterology Office/Clinic [...] agitated and aggressive today. EGD 03/04/2013 @ [facility]: 1. Biopsies taken from the small bowel. [...] ARE NOT IDENTIFIED Repeat EGD done at [facility] 08/06/2014. EGD: Retropharyngeal area was grossly normal [...] very limited and obtained from brother and care management coordinator 2 weeks ago he had decreased [...] virus vaccine, inactivated 03/01/2022 Recorded SARS-CoV-2 (COVID-19) [id number].[id number] 03/01/2022 Recorded 2022-12-06: TPVALL influenza virus vaccine, [...] Recorded poliovirus vacci (more content not included)... [facility] Comment on above: Result Comment: Elec tronically Signed By: Ras BARBOUR, Diya Baxter\.br\Date and Time Signed: 01/01/23 09:14 EDT Historical Records Officeon 12-06-2022 Historical Records Office [id number] .[id number]:127 [facility] Historical Records Office [id number] .[id number]:127 [facility] Historical Records Office [id number] .[id number]:127 [facility] Physician Referralon 023 Physician Referral [id number] .[id number]:127 Normal [facility] Physician Referral [id number] .[id number]:127 Normal [facility] DEPAKENE/ VALPROIC ACIDon DEPAKENE 64.0 ug/ml Normal 50.0-100.0 [facility] Comment on above: Performed By: #### V ALP #### [facility] [address] [address] [address] Madiha Medina Progress Noteson 09-23-2021 Business Owner/Engineer Authentication Interface Message Text ----- Thursday, September 23, 2021 at 1:00:26 PM ----- ----- Provider: [id number] - Keila Grijalva -- Clinic: [place] ----- [facility], Pt is ready for tx. Pt presents for examination. Pt is ID and non-verbal. Pt is aggressive and acute care certified nursing assistant was taken to the back room to keep pt away from others. Pt is edentulous and Dr. Bose examined the gums and did not see of feel any signs of infection. Advised to return for exams on as need basis. [facility]/Dr. Bose [place]. EXAM ----- Signed on Thursday, September 23, 2021 at 4:02:34 PM ----- ----- Provider: [id number] Azam Dinero DMD -- Clinic: [place] ----- Normal [facility] Surgical Pathologyon 019 Surgical Pathology (NOTE) [id number] [facility] ANATOMIC PATHOLOGY [address] [place] [address]. [place], [place] [address] SURGICAL PATHOLOGY CONSULTATION Patient Name: LUIS BAILEY Med Rec: [id number] Path Number: [id number] Collected: 05/30/2018 Received: 05/31/2018 Reported: 06/03/2018 15:31 -- Diagnosis -- SKIN TISSUES, EXCISION (LEFT GROIN): - RUPTURED EPIDERMAL CYST WITH MARKED INFLAMMATORY REACTION. Jessi Rudd M.D. Electronically Signed [facility]/06/03/2018 Clinical Information Pre-op Diagnosis: CHRONIC LEFT INFECTED GROIN CYST Operative Findings: LEFT GROIN MASS Operation Performed: GROIN EXPLORATION Source of Specimen 1: LEFT GROIN MASS Gross Description LUIS ADRI, LEFT GROIN MASS Fragments of brown gonzáles skin and subcutaneous tissue with areas of granularity, 2.8 x 2.2 x 0.5 cm. in aggregate. Entirely. 1cs dw Microscopic Description Microscopic examination performed. Normal [facility] Comment on above: Performed By: #### P PPVS #### [facility] [place], [place] [id number] Field Coil Winder: River Rudd MD Vital Signs Date Time Vital Sign Value Performing Clinician Orai lity 11-19-2024 14:11-0400 Body height 175.3 cm Byron Velez DPM FACFAS Work Phone: [facility] 11-19-2024 14:11-0400 Body mass index (BMI) [Ratio] 22.74 kg/m2 Byron Velez DPM FACFAS Work Phone: [facility] 11-19-2024 14:11-0400 Body weight 69.85 kg Byron Velez DPM FACFAS Work Phone: [facility] 11-11-2024 15:06-0400 Body height 175.3 cm Shon Dorman DPM Work Phone: [facility] 11-11-2024 15:06-0400 Body mass index (BMI) [Ratio] 22.74 kg/m2 Shon Dorman DPM Work Phone: [facility] 11-11-2024 15:06-0400 Body weight 69.85 kg Shon Dorman DPM Work Phone: [facility] 11-11-2024 15:06-0400 Respiratory rate 16 /min Shon Dorman DPM Work Phone: [facility] 07-03-2024 10:21-0500 Body height 175.3 cm Alejandro Michelle DPM Work Phone: [facility] 07-03-2024 10:21-0500 Body mass index (BMI) [Ratio] 22.74 kg/m2 Alejandro Michelle DPM Work Phone: [facility] 07-03-2024 10:21-0500 Body weight 69.85 kg Alejandro Michelle DPM Work Phone: [facility] 01-01-2024 11:12-0400 Body height 175.3 cm Alejandro Michelle DPM Work Phone: [facility] 01-01-2024 11:12-0400 Body mass index (BMI) [Ratio] 22.74 kg/m2 Alejandro Michelle DPM Work Phone: [facility] 01-01-2024 11:120400 Body weight 69.85 kg Alejandro Michelle DPM Work Phone: [facility] Healthcare Encounters Encounter Date Encounter Type Care Provider Facility Start: 11-19-2024 End: 11-19-2024 Office outpatient visit 25 minutes Byron Velez DPM FACFAS Work Phone: [facility] Comment on above: Lisfranc dislocation , left, initial encounter (Primary Dx); Left foot pain; Closed displaced fracture of second metatarsal bone of left foot, initial encounter; Closed displaced fracture of third metatarsal bone of left foot, initial encounter; Closed displaced fracture of fourth metatarsal bone of left foot, initial encounter Start: 11-19-2024 End: 11-19-2024 Bamboo flowsheet Byron Velez DPM FACFAS Work Phone: [facility] Start: 11-19-2024 End: 11-19-2024 Bamboo flowsheet Byron Velez DPM FACFAS Work Phone: [facility] Start: 11-11-2024 End: 11-11-2024 ambulatory SHON DORMAN Not Available Start: 11-11-2024 End: 11-11-2024 Office outpatient visit 25 minutes Shon Dorman DPM Work Phone: [facility] Comment on above: Lisfranc dislocation , left, initial encounter (Primary Dx) Start: 11-11-2024 End: 11-11-2024 Bamboo flowsheet Shon Dorman DPM Work Phone: [facility] Start: 11-11-2024 End: 11-11-2024 Bamboo flowsheet Shon Dorman DPM Work Phone: [facility] Start: 07-03-2024 End: 07-03-2024 Bamboo flowsheet Alejandro Michelle DPM Work Phone: [facility] Start: 07-03-2024 End: 07-03-2024 Bamboo flowsheet Alejandro Michelle DPM Work Phone: [facility] Start: 07-03-2024 End: 07-03-2024 Patient encounter procedure Alejandro Michelle DPM Work Phone: [facility] Comment on above: Dermatophytosis of n ail (Primary Dx); Dystrophic nail; Pain around toenail, right foot; Pain around toenail, left foot Start: 07-03-2024 End: 07-03-2024 ambulatory ALEJANDRO MICHELLE Not Available Start: 01-01-2024 End: 01-01-2024 Bamboo flowsheet Alejandro Michelle DPM Work Phone: [facility] Start: 01-01-2024 End: 01-01-2024 Bamboo flowsheet Alejandro Michelle DPM Work Phone: [facility] Start: 01-01-2024 End: 01-01-2024 Patient encounter procedure Alejandro Michelle DPM Work Phone: [facility] Comment on above: Dermatophytosis of n ail (Primary Dx); Dystrophic nail; Pain around toenail, right foot; Pain around toenail, left foot Start: 01-01-2024 End: 01-01-2024 ambulatory ALEJANDRO MICHELLE Not Available Start: 07-30-2023 End: 07-31-2023 ambulatory [facility] Facility:[facility] Start: 07-30-2023 End: 07-30-2023 Patient encounter procedure Keane Talal Sarmini [facility] Start: 07-09-2023 End: 07-10-2023 ambulatory Keane Talal Sarmini Facility:[facility] Start: 01-01-2023 End: 01-02-2023 ambulatory Keane Talal Sarmini Facility:[facility] Start: 01-01-2023 End: 01-01-2023 Patient encounter procedure Keane Talal Sarmini [facility] Start: 12-28-2022 End: 12-29-2022 ambulatory Keane Talal Sarmini Facility:[facility] Start: 12-05-2022 ambulatory Keane Carolemini Facili ty:[facility] Start: 10-11-[address] REJI MOSS Fac ility:[facility] Start: 08-31-2022 End: 09-01-[address] REJI MOSS Facility:[facility] Start: 08-19-2022 Letter encounter Uday Quinteros DDS [facility] Start: 11-19-2021 Letter encounter Uday Quinteros DDS Work Phone: [facility] Start: 09-23-2021 End: 09-26-2021 ambulatory UNKNOWN PROVIDER Facility:[facility] Start: 05-30-2018 End: 05-30-2018 Patient encounter procedure [facility] Procedures Date Procedure Procedure Detail Performing Clinician Start: 11-19-2024 Radex foot complete minimum 3 views Byron Velez DPM FACFAS Work Phone: Start: 05-30-2018 DISCHARGE PATIENT JAMAICA PAIGE Start: 05-30-2018 SURGICAL PATHOLOGY DAPHNERenetta CARLEY Plan of Treatment Date Care Activity Detail Author Start: 2037 Shingles (RZV) Vacci ne (1 of 2) Shingles (RZV) Vaccine (1 of 2) [facility] Start: 01-12-2025 Influenza vaccination Influenza Vacc ine (#1) [facility] Healthcare Start: 12-31-2024 End: 12-31-2024 Patient encounter procedure 12/31/2024 10:15 AM EDT Procedure Visit [facility] [address] [place] [phone] Alejandro Michelle DPM [address] [place], [place] [id number] [facility] Start: 11-19-2024 End: 11-19-2024 Patient encounter procedure 11/19/2024 2:40 PM EDT Office Visit [facility] [address] [place] [id number] Byron Velez, PATRICK FACFAS [address] [place], [place] [id number] Arrived [facility] Comment on above: Arrived Start: 11-11-2024 End: 11-11-2024 Patient encounter procedure 11/11/2024 3:00 PM EDT Office Visit [facility] [address] [place] [phone] Shon Dorman DPM [address] [address] [facility] Start: 07-03-2024 End: 07-03-2024 Patient encounter procedure [facility] Comment on above: Arrived Start: 01-13-2024 Influenza vaccination Influenza Vacc ine (#1) [facility] Start: 01-01-2024 End: 01-01-2024 Patient encounter procedure 01/01/2024 10:45 AM EDT Procedure Visit [facility] [address] [place] [phone] Alejandro Michelle DPM [address] [place], [place] [address] Arrived [facility] Comment on above: Arrived Start: 02-07-2023 End: 02-07-2023 Patient encounter procedure 02/07/2023 Procedure Visit Dentistry Jose Dinero, DMD [address] [place] [address] [facility] Start: 01-30-2023 Tetanus vaccination Tetanus (T d or Tdap) Booster [facility] Start: 2022 [facility] Start: 12-12-2021 Influenza vaccination Influenza Vacc ine (#1) [facility] Start: 05-04-2021 COVID-19 Vaccine (4 - Booster for Pfizer series) COVID-19 Vaccine (4 - Booster for Pfizer series) [facility] Start: 2005 Hepatitis C screening Hepatitis C An [facility] Start: 2002 HIV screening HIV Test [facility] Immunizations Immunization Date Immunization Notes Care Provider [facility] 02-28-2024 influenza virus vaccine, unspecified formulation Shon Dorman DPStephen Work Phone: [facility] 06-25-2023 tetanus toxoid, reduced diphtheria toxoid, and acellular pertussis vaccine, adsorbed Keane Sarmini [facility] 05-08-2023 influenza virus vaccine, unspecified formulation Keane Sarmini [facility] 03-01-2022 influenza virus vaccine, unspecified formulation Keane Sarmini [facility] 03-01-2022 SARS-CoV-2 (COVID-19 ) [id number] Keane Sarmini [facility] Comment on above: Result Comment: 2022: TPVALL 03-09-2021 influenza, injectabl e, quadrivalent, preservative free Uday Quinteros DDS Work Phone: [facility] 03-09-2021 SARS-CoV-2 (COVID-19 ) mRNA BNT-162b2 vax Keane Sarmini [facility] Comment on above: Result Comment: 2022: TPV3 03-09-2021 influenza virus vaccine, unspecified formulation Uday Butriy DDS Work Phone: [facility] 06-15-2020 Pfizer (12+ yrs) SARS-COV-2 (COVID-19) vaccine, mRNA, spike protein, LNP, pres. free, 30 mcg/0.3mL dose (NRC=668) Uday Butriy DDS Work Phone: [facility] Comment on above: Result Comment: 2022: TPVAL 05-25-2020 Pfizer (12+ yrs) SARS-COV-2 (COVID-19) vaccine, mRNA, spike protein, LNP, pres. free, 30 mcg/0.3mL dose (IWA=[id number]) Uday Butriy DDS Work Phone: [facility] Comment on above: Result Comment: 2022: TPVAL 02-18-2020 influenza virus vaccine, unspecified formulation Keane Sarmini [facility] 02-18-2020 influenza, injectabl e, quadrivalent, preservative free Uday Butriy DDS Work Phone: [facility] 03-19-2019 influenza virus vaccine, unspecified formulation Keane Sarmini [facility] 03-19-2019 influenza, injectabl e, quadrivalent, contains preservative Uday Butriy DDS Work Phone: [facility] 02-20-2018 influenza virus vaccine, unspecified formulation Keane Sarmini [facility] 02-20-2018 influenza, injectabl e, quadrivalent, preservative free Uday Butriy DDS Work Phone: [facility] 03-07-2017 influenza virus vaccine, unspecified formulation Keane Sarmini [facility] 03-07-2017 influenza, injectabl e, quadrivalent, contains preservative Uday Butriy DDS Work Phone: [facility] 03-04-2015 influenza virus vaccine, unspecified formulation Keane Sarmini [facility] 03-04-2015 influenza, injectabl e, quadrivalent, preservative free Uday Butriy DDS Work Phone: [facility] 01-30-2013 tetanus toxoid, reduced diphtheria toxoid, and acellular pertussis vaccine, adsorbed Uday Butriy DDS Work Phone: [facility] 03-31-2009 novel [id number], preservative-free, injectable Uday Butriy DDS Work Phone: [facility] 03-05-2008 influenza virus vaccine, whole virus Uday Butriy DDS Work Phone: [facility] 03-05-2008 influenza, whole Keane Sa rmini [facility] 03-13-2006 influenza virus vaccine, unspecified formulation Keane Sarmini [facility] 03-13-2006 influenza, seasonal, injectable Uday Butriy DDS Work Phone: [facility] 01-28-2003 TD(adult) unspecifie d formulation; Translations: [Td(adult) unspecified formulation] Uday Butriy DDS Work Phone: [facility] 01-03-2000 measles, mumps and rubella virus vaccine Uday Butriy DDS Work Phone: [facility] 07-03-1995 hepatitis B vaccine, pediatric or pediatric/adolescent dosage Uday Butriy DDS Work Phone: [facility] 01-25-1995 hepatitis B vaccine, pediatric or pediatric/adolescent dosage Uday Butriy DDS Work Phone: [facility] 12-21-1994 hepatitis B vaccine, pediatric or pediatric/adolescent dosage Uday Butriy DDS Work Phone: [facility] [facility] 01-27[facility]1993 diphtheria, tetanus toxoids and acellular pertussis vaccine, unspecified formulation Uday Butriy DDS Work Phone: [facility] 01-27-1993 DTaP, unspecified formulation Keane Sarmini [facility] 01-27-1993 poliovirus vaccine, inactivated Uday Butriy DDS Work Phone: [facility] 01-27-1993 poliovirus vaccine, unspecified formulation Keane Sarmini [facility] 04-02-1990 diphtheria, tetanus toxoids and pertussis vaccine Uday Butriy DDS Work Phone: [facility] 04-02-1990 haemophilus influenz ae type b vaccine, conjugate unspecified formulation Uday Butriy DDS Work Phone: [facility] 04-02-1990 Hib, unspecified formulation Keane Sarmini [facility] 04-02-1990 poliovirus vaccine, inactivated Uday Butriy DDS Work Phone: [facility] 04-02-1990 poliovirus vaccine, unspecified formulation Keane Sarmini [facility] 01-18-1989 diphtheria, tetanus toxoids and pertussis vaccine Uday Butriy DDS Work Phone: [facility] 01-18-1989 measles, mumps and rubella virus vaccine Uday Butriy DDS Work Phone: [facility] 01-18-1989 poliovirus vaccine, inactivated Uday Butriy DDS Work Phone: [facility] 01-18-1989 poliovirus vaccine, unspecified formulation Keane Sarmini [facility] 1985 diphtheria, tetanus toxoids and pertussis vaccine Uday Butriy DDS Work Phone: [facility] 1985 haemophilus influenz ae type b vaccine, conjugate unspecified formulation Uday Butriy DDS Work Phone: [facility] 1987 Hib, unspecified formulation Keane Sarmini [facility] 1987 poliovirus vaccine, inactivated Uday Butriy DDS Work Phone: [facility] 1985 poliovirus vaccine, unspecified formulation Keane Sarmini [facility] Payers Date Payer Category Payer Medicare [id number] 2007 Medicare 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 1987 Unknown [id number] 1987 Unknown [id number] 1987 Unknown [id number] 1987 Unknown [id number] 1987 Unknown [id number] 1987 Unknown [id number] 1987 Unknown [id number] 1987 Unknown [id number] 1987 Unknown [id number] 1959 Medicaid [id number] 1959 Medicare [id number] Unknown [id number] Unknown [id number] Social History Date Type Detail Facility Tobacco smoking stat [facility] Tobacco smoking consumption unknown [facility] Start: 1985 [facility] smoking status No Smokin g Status Entered [facility] Start: 06-12-2023 End: 11-19-2024 Sex Assigned At Male [facility] Start: 06-12-2023 [facility] Start: 06-12-2023 End: 11-19-2024 Alcoholic beverage intake Lifetime non-drinker (finding) [facility] Start: 06-12-2023 End: 11-19-2024 History of Social function [facility] Start: 01-22-2023 Alcohol Comment Caffeine intake: non e [facility] Functional Status Date Assessment Result Facility 07-30-2023 Functional Status N/A [facility] 01-01-2023 Functional Status N/A [facility] Clinical Notes 01-01-2023 to 11-19-2024 Byron Velez, PATRICK FACFAS - 11/19/2024 2:40 PM EDTNiclatesha Dorman, DENISEM - 11/11/2024 3:00 PM EDTSmasood Michelle, DPM - 07/03/2024 10:45 AM ESTSmasood Michelle, DPM - 01/01/2024 10:45 AM EDTLaboratory Note Date & Type Note Facility 11-19-2024 History of Present illness Narrative Patient: Luis Bailey : 1985 PCP: Reji Moss MD SUBJECTIVE This is a 39 y.o. male that presents today with caregiver for left foot trauma sustained proximally 10 days ago. He was seen in [place] ER with diagnosis of Lisfranc fracture from CT and x-rays. Patient is nonverbal noncommunicative and has only history of seizures according to notes. Did not appear to have a seizure of the time of the incident according to the caregiver Caregiver states that he has not been [...] left 2nd metatarsal base region [facility] scan reports. [...] step off of first and and 2nd metataral fractures and dislocation. 3,4,5 base fractures appear mostly [...] the multilayer compressive Unna boot for immobilization. Recommend continue with wheelchair and nonweightbearing at this time. Surgery will be scheduled on Sunday clearance per Dr. Moss. The patient was educated on the pre, laurie, postoperative course of the procedure in great detail. We discussed further conservative therapies which the patient has attempted and has failed. I discussed the surgical procedure in great detail including the risks and possible complications. We discussed the following complications in great detail including but not limited to: Pain, infection, prolonged swelling, numbness, tingling, burning, nonhealing wound, nonunion, malunion, chronic pain, development of complex regional pain syndrome, development of deep venous thrombosis. Patient fully understood all possible risks and complications. All questions have been asked and answered. They have consented for the above-stated procedure. PATRICK Majano documented in this encounter [facility] 11-11-2024 History of Present illness Narrative Patient: Luis Bailey : 1985 PCP: Reji Moss MD SUBJECTIVE This is a 39 y.o. male that presents today with caregiver for left foot trauma sustained proximally 3 days ago. He was seen in [place] ER with diagnosis of Lisfranc fracture from [...] palpation to left 2nd metatarsal base region ASSESSMENT 1. Lisfranc dislocation, left, initial encounter PLAN Reviewed ER report with history of left left foot Lisfranc injury which CT scan confirms. Will need to obtain disc copies of CT scan as well as reports as well as x-rays as well as reports as patient unable to have x-ray today in office. Will contact [place] for further course of action once obtained Recommend continue with wheelchair and nonweightbearing at this time Shon Dorman DPM documented in this encounter [facility] 07-03-2024 History of Present illness Narrative Images from the original note were not included. Subjective Patient ID: Luis Bailey is a 39 y.o. male who presents for Toenail Care. HPI HPI Onychomycosis/Toenail Fungus: Luis is a resident of [facility]; with severe autism, with associated [...] Alejandro Michelle DPM documented in this encounter [facility] 01-01-2024 History of Present illness Narrative Images from the original note were not included. Subjective Patient ID: Luis Bailey is a 38 y.o. male who presents for Nail care (Luis Bailey is a 38yo Male patient presents for Nail care. Pt is a resident at [facility]. Severe autism.Brother Mehrdad and caregiver Pooja). HPI HPI Onychomycosis/Toenail Fungus: Luis is a resident of [facility]; with severe autism and profound [...] Alejandro Michelle DPM documented in this encounter [facility] 01-01-2023 Evaluation + Plan note Future Scheduled TestsCBC w/ Auto Diff 01/01/23Comprehensive Metabolic Panel 01/01/23 [facility] Evaluation + Plan note Future Appointments Appointment Date:07/09/2023 08:45:00 AM Scheduled Provider:Diya Mcginnis MD Location:[facility] Appointment Type:[facility] Follow Up Future Scheduled TestsCBC w/ Auto Diff 01/01/23Comprehensive Metabolic Panel 01/01/23 [facility] Evaluation note Diagnosis Dermatophytosis of nail- Primary Dystrophic nail Other specified disease of nail Pain around toenail, right foot Pain around toenail, left foot [facility] Diagnosis Dermatophytosis of nail- Primary Dystrophic nail Other specified disease of nail Pain around toenail, right foot Pain around toenail, left foot [facility] Diagnosis Lisfranc dislocation, left, initial encounter- Primary [facility] Diagnosis Lisfranc dislocation, left, initial encounter- Primary Left foot pain Pain in soft tissues of limb Closed displaced fracture of second metatarsal bone of left foot, initial encounter Closed displaced fracture of third metatarsal bone of left foot, initial encounter Closed displaced fracture of fourth metatarsal bone of left foot, initial encounter [facility] Narrative No data available for this section [facility] Hospital Discharge instructions No data available for this section [facility] Progress note No data available for this section [facility] Summary Purpose Family History No [...] section and content) DATE CREATED AUTHOR 06/13/2018 [facility] DATE CREATED AUTHOR AUTHOR'S ORGANIZ ATION 09/29/2021 [facility] DATE CREATED AUTHOR AUTHOR'S ORGANIZ ATION 10/20/2022 [facility] DATE CREATED AUTHOR AUTHOR'S ORGANIZ ATION 07/31/2023 [facility] DATE CREATED AUTHOR AUTHOR'S ORGANIZ ATION 11/13/2024 [facility] dical Specialists EPIC Care Teams (unrecognized sec tion and content) Alum Plant Supervisor Relationship Specialty Start Date End Date Uday Quinteros [facility] 08/15/[address] [address] 08/15/10 Francisco Del Rio [address] [address] Resident Dentistry 02/17/20 Alum Plant Supervisor Relationship Specialty Start Date End Date Uday Quinteros [facility] 08/15/10 Rigo Kevin, [facility] [address] [place] [address] 08/15/10 Francisco Del Rio [address] [address] Resident Dentistry 02/17/20 Alum Plant Supervisor Relationship Specialty Start Date End Date Reji Moss MD [address] [place] [address] PCP - General Family Medicine 01/01/24 Alum Plant Supervisor Relationship Specialty Start Date End Date Reji Moss MD [address] [place] [address] PCP - General Family Medicine 01/01/24 Alum Plant Supervisor Relationship Specialty Start Date End Date Reji Moss MD [address] [place] [address] PCP - General Family Medicine 01/01/24 Alum Plant Supervisor Relationship Specialty Start Date End Date Reji Moss MD [address] [place] [address] PCP - General Family Medicine 01/01/24 Alum Plant Supervisor Relationship Specialty Start Date End Date Reji Moss MD [address] [place] [address] PCP - General Family Medicine 01/01/24 Alum Plant Supervisor Relationship Specialty Start Date End Date Reji Moss MD [address] [place] [address] PCP - General Family Medicine 01/01/24 Alum Plant Supervisor Relationship Specialty Start Date End Date Reji Moss MD [address] [place] [address] PCP - General Family Medicine 01/01/24 Reason for Visit (unrecogniz ed section and content) Reason Comments Nail care Luis Bailey is a 38yo Male patient presents for Nail care. Pt is a resident at [facility]. Severe autism.Brother Mehrdad and caregiver Pooja Reason Comments Toenail Care Established pt prese nts today for nail care. Pt is resident at [facility]. Brother mehrdad and caregiver pooja are with him today. Reason Comments Foot/ankle Fracture Poss fx Reason Comments Foot/ankle Fracture LT foot fracture FOR RECORDS PERTAINING TO PATIENTS WHO ARE [...] BE BASED ON THE PRIMARY CLINICAL RECORDS. [employer] [facility]. provides no warranty or guarantee of the accuracy or completeness of information in this document.
[2024-11-21 11:37] LABS: Hematocrit 41.2 % (42.0-54.0); Hemoglobin 13.7 g/dL (14.0-18.0); Immature Granulocytes Abs Auto 0.01 10^3/uL (0.00-0.03); Immature Granulocytes Pct Auto 0.2 % (0.0-0.5); Lymphocytes Absolute Auto 1.5 10^3/uL (1.2-3.8); Mean Corpuscular HGB Conc 33.3 g/dL (29.9-35.2); Mean Corpuscular Hemoglobin 30.1 pg (25.9-34.0); Mean Corpuscular Volume 90.5 fL (80.0-94.0); Platelet Count 245 10^3/uL (150-450); Red Blood Count 4.55 10^6/uL (4.70-6.10); White Blood Count 4.1 10^3/uL (4.0-11.0)
[2024-11-21 13:24] LABS: Anion Gap 14.6; Blood Urea Nitrogen 10.0 mg/dL (7.0-18.0); Calcium 9.4 mg/dL (8.5-10.1); Carbon Dioxide 27.5 mmol/L (21.0-32.0); Chloride 106 mmol/L (98-107); Estimated GFR (African America >60 (>=60 mL/min/1.73m^2); Estimated GFR (Non-African Ame >60 (>=60 mL/min/1.73m^2); Glucose 101 mg/dL (74-106); Potassium 4.1 mmol/L (3.5-5.1); Sodium 144 mmol/L (136-145)
== END 2024-11-21 10:05 | disposition home or self-care (01) ==
LOC: CARD 10:06
PROVIDERS: PCP Family Medicine; Visit Provider Podiatrist Foot & Ankle Surgery
DX: Z01.818 Encounter for other preprocedural examination (principal)
CPT/HCPCS: 36415; 80048; 85025; 93005

== ENCOUNTER 2025-03-20 18:10 | Emergency (ER) | payer MEDICARE, MEDICAID, SELFPAY ==
--- OUTSIDE RECORDS SUMMARY | 2025-03-06 08:10 | XMS_ITS | Encounter Summary ---
Author Organization [facility] Address [address] [place] [address] Care Team Providers Care Design Coordinator Name Role Phone Reji Platt MD Primary Care Provider Reason for Visit * ReasonCommentsToenail CareNon DM nail care Encounter Details DateTypeDepartmentCare Team (Latest Contact Info)Kcpellerzgb48/24/2025 9:10 AM EDTProcedure Visit [facility] [address] [place] [id number] Byron Velez, DPM FACFAS [address] [facility] [place] [place] [address] Lisfranc dislocation, left, initial encounter (Primary Dx); Dermatophytosis of nail; Pain in left toe(s); Pain in right toe(s) Social History Tobacco UseTypesPacks/DayYears UsedDateSmoking Tobacco: Never Tobacco Cessation:Counseling Given: Yes Alcohol UseStandard Drinks/WeekCommentsNever0 (1 standard drink = 0.6 oz pure alcohol)Caffeine intake: noneSex and Gender InformationValueDate RecordedSex Assigned at BirthNot on fileLegal EuvDnfg2307/26/2022 8:24 PM EDTGender Identity Not on fileSexual OrientationNot on filedocumented as of this encounter Last Filed Vital Signs Vital SignReadingTime TakenCommentsBlood Pressure--Pulse--Temperature-- Respiratory Rate--Oxygen Saturation--Inhaled Oxygen Concentration--Hcobmq16.9 kg (154 lb)03/06/2025 9:25 AM OQWQmympi689.3 cm (5' 9 )03/06/2025 9:25 AM EDTBody Mass Index22.7403/06/2025 9:25 AM EDTdocumented in this encounter Progress Notes * Byron Velez DPM FACFAS - 03/06/2025 9:10 AM EDT Images from the original note were not included. Patient: Luis Bailey : 1985 PCP: Reji Platt MD SUBJECTIVE This is a 39 y.o. male that presents today The patient is here status post ORIF Lisfranc's fracturedislocation procedure. Postop week 15. They deny fevers, chills, nausea, vomiting, calf pain and shortness of breath. Pain level is being managed with ice elevation and pain medication. Patient was doing very well he was here today with his brother This patient presents today chief complaint of painful elongated nails digits 1 through 10. They cause marked limitation in ambulation due to pain and pressure from shoe gear. Patient was nonverbal but elicits pain with the examination. Allergies: No Known Allergies Past Medical History: Active Ambulatory Problems Diagnosis Date Noted No Active Ambulatory Problems Resolved Ambulatory Problems Diagnosis Date Noted No Resolved Ambulatory Problems Past Medical History: Diagnosis Date ADHD (attention deficit hyperactivity disorder) Autism (HCC) Constipation Edentulous GERD (gastroesophageal reflux disease) Hiatal hernia History of medical problems History of medical problems Hyperopia Hypertension Insomnia OCD (obsessive compulsive disorder) Peptic [...] taking: Reported on 07/03/2024), Disp: , Rfl: diazePAM (Valium) 10 MG tablet, Take 1 tablet (10 mg) by mouth every 6 (six) hours if needed for sedation for up to 2 days, Disp: 2 tablet, Rfl: 0 dicyclomine (Bentyl) 10 MG capsule, TAKE ONE [...] at the same time, Disp: , Rfl: Valium 10 MG tablet, Take 1 tablet (10 mg) by mouth 1 (one) time if needed for sedation (take 1 pill 30 minutes prior to to his office visit for suture removal) for up to 1 dose, Disp: 1 tablet, Rfl:0 Vyvanse 70 MG capsule, Take 70 mg by mouth in the morning., Disp: , Rfl: Review of systems: Constitutional: Denies fever, chills, nausea, vomiting GI: Denies abdominal pain, cramping, loose stool, gastric ulcers Musculoskeletal: Denies low back pain, knee pain, systemic arthritis Neurologic: Denies burning, tingling, transient paralysis OBJECTIVE Physical Examination: DERM: Positive hair growth to b/l feet with good skin turgor noted. Negative openings in skin Nails1 through 10 are markedly thickened elongated yellow and crumbly with subungual debris and painful to palpation 610[address] on the right [address] on the left VASC: DP /PT were palpable bilateral. Capillary refill time < 3 seconds Digits 1-5 bilateral NEURO: Volga Kayy 5.07 monofilament was intact B/L. Vibratory sensation was intact B/L Musculoskeletal: Muscle strength was +5 over 5 all intrinsic and extrinsic muscles tested. NegativeHomans test noted Surgical site evaluation: The incision site is healing well without signs infection. Minimal swelling noted. Consistent with the patient's level of surgery consistent with time frame postoperatively. Three views were taken today AP/MO/LAT foot: trabeculation noted across the fracture site Lisfranc's joint in good position and alignment fixation intact left ASSESSMENT 1. Lisfranc dislocation, left, initial encounter 2. Dermatophytosis of nail 3. Pain in left toe(s) 4. Pain in right toe(s) PLAN Patient was doing very well rim regular shoe gear ambulating without pain. The patient was educatedon proper foot care as well as the etiology of onychomycosis. I educated the patient on proper shoegear as well. Today the nails were debrided both in length and thickness 1 through 10 PATRICK Majano documented in this encounter Plan of Treatment DateTypeDepartmentCare Team (Latest Contact Info)Oickucmacqo83/20/2026 9:00 AM ESTProcedure Visit [facility] [address] [place] [address] Byron Velez DPM FACFAS [address] [place] [address] documented as of this encounter Visit Diagnoses Diagnosis Lisfranc dislocation, left, initial encounter- Primary Dermatophytosis of nail Pain in left toe(s) Pain in right toe(s) documented in this encounter Care Teams Team MemberRelationshipSpecialtyStart DateEnd Date Reji Platt MD [address] [place] [id number] PCP - GeneralFamily Medicine01/01/24documented as of this encounter
[2025-03-20 18:25] VITALS: BP 101/76; PULSE 101; O2SAT 96; BMI 28.1
--- NOTE | 2025-03-20 18:32 | XR_ITS ---
[facility] [place] [id number] Patient Name: RENA RUSH MRN: [id number] date: 1985 Sex: M Assigned Patient Location: ED.MAIN Current Patient Location: ED.MAIN Accession/Order Number: [id number] Exam Date: 03/20/2025 19:05 Report Date: 03/20/2025 19:21 At the request of: DORIS MILLIGAN DO Procedure: XR chest 1V Plain film chest Single view HISTORY: Nausea and vomiting COMPARISON: 03/10/2024 FINDINGS: SUPPORT DEVICES: None POSTSURGICAL CHANGES: None HEART: Within normal limits PULMONARY EAMON: Within normal limits MEDIASTINUM: Unremarkable LUNGS AND PLEURA: No acute lung process, pleural effusion or pneumothorax identified. BONY STRUCTURES: Intact ADDITIONAL FINDINGS None XR/XR chest 1V IMPRESSION: No acute process. Impression dictated by: Raul Chang M.D. 03/20/2025 7:21 PM Dictation Location: [place] Electronically authenticated by: [id number] Y Date: 03/20/2025 19:21
[2025-03-20] MEDS: DIPHENHYDRAMINE HCL 50 MG/ML VIAL IM (18:48)
[2025-03-20] MEDS: MIDAZOLAM HCL 2 MG/2 ML VIAL IM (18:49)
--- NOTE | 2025-03-20 19:05 | ED.GENADUL1 ---
HPI HPI - General Adult General Chief complaint: Nausea/Vomiting/Diarrhea Stated complaint: NAUSEA, VOMITING Time Seen by Provider: 03/20/25 18:14 Source: medical record Limitations: altered mental status and physical limitation History of Present Illness HPI narrative: Patient is a 39-year-old male, history significant for peptic ulcer disease and severe intellectual disability/autism who is nonverbal and combative at baseline, presenting to the emergency department from a shelter for concerns of nausea, vomiting, and brown emesis. Patient is nonverbal at baseline, cannot provide any history. The caregiver who are with him there is no further information at this time. There is a medication list at the bedside, it does appear that he is on omeprazole 40 mg daily. Related Data Home Medications ?Medication ?Instructions ?Recorded ?Confirmed aluminum-mag hydroxide-simethicone 1 tab PO TID 11/09/24 11/09/24 200 mg-200 mg-25 mg chewable tablet (Mintox Plus) bupropion HCl 100 mg tablet 100 mg PO BID 11/09/24 11/09/24 cyproheptadine 4 mg tablet 4 mg PO DAILY 11/09/24 11/09/24 guanfacine 2 mg tablet 2 mg PO TID 11/09/24 11/09/24 haloperidol 20 mg tablet 20 mg PO BID 11/09/24 11/09/24 linaclotide 290 mcg capsule 290 mcg PO DAILY 11/09/24 11/09/24 (Linzess) lisdexamfetamine 70 mg capsule 70 mg PO DAILY 11/09/24 11/09/24 metoprolol tartrate 100 mg tablet 100 mg PO TID 11/09/24 11/09/24 metoprolol tartrate 25 mg tablet 25 mg PO TID 11/09/24 11/09/24 montelukast 10 mg tablet 10 mg PO DAILY 11/09/24 11/09/24 naltrexone 50 mg tablet 100 mg PO BID 11/09/24 11/09/24 omeprazole 40 mg capsule,delayed 40 mg PO DAILY 11/09/24 11/09/24 release prochlorperazine maleate 10 mg 15 mg PO DAILY 11/09/24 11/09/24 tablet quetiapine 400 mg tablet 800 mg PO HS 11/09/24 11/09/24 Allergies Allergy/AdvReac Type Severity Reaction Status Date / Time No Known Drug Allergies Allergy Verified 03/20/25 18:24 Review of Systems ROS Status of ROS 10 or more systems reviewed and unremarkable except as noted in history and below Exam Narrative Exam Narrative: CONSTITUTIONAL: Well-appearing, awake and alert, combative with staff but will allow me to perform a basic physical examination, nonverbal, intermittently follows commands SKIN: Was warm and dry. EYES: Sclerae white. No conjunctival pallor. EARS, NOSE, THROAT: Moist oral mucosa. No blood/coffee-ground emesis in the oropharynx. RESPIRATORY: Clear to auscultation bilaterally, no wheezes, crackles, or stridor, no use of accessory muscles CARDIOVASCULAR: Normal rate and regular rhythm. There is no S3, S4, murmur, rub. GASTROINTESTINAL: Abdomen is soft, nondistended, and nontender. No rebound tenderness or guarding. MUSCULOSKELETAL: No peripheral edema. NEUROLOGIC: Patient is awake and alert. Facies were symmetrical. Constitutional Vital Signs, click to edit/add: Last Vital Signs Pulse 101 H 03/20/25 18:25 Resp 16 03/20/25 18:25 BP 101/76 03/20/25 18:25 Pulse Ox 96 03/20/25 18:25 O2 Del Method Room Air 03/20/25 18:25 Course Vital Signs Vital signs: Vital Signs Pulse Rate 101 H 03/20/25 18:25 Respiratory Rate 16 03/20/25 18:25 Blood Pressure 101/76 03/20/25 18:25 Pulse Oximetry 96 03/20/25 18:25 Oxygen Delivery Method Room Air 03/20/25 18:25 Pulse Rate 101 H 03/20/25 18:25 Respiratory Rate 16 03/20/25 18:25 Blood Pressure 101/76 03/20/25 18:25 Pulse Oximetry 96 03/20/25 18:25 Oxygen Delivery Method Room Air 03/20/25 18:25 Medical Decision Making MDM Narrative Medical decision making narrative: Patient is a 39-year male presenting to the emergency department from a shelter for concerns of nausea, vomiting, possible coffee-ground emesis. On review of external documentation, patient's history of peptic ulcer disease and hiatal hernia on daily PPI. His vital signs on arrival are significant for mild tachycardia, otherwise within normal limits. He is afebrile and hemodynamically stable. He has a benign abdominal examination. Differential diagnose includes viral gastroenteritis, PUD, anemia, upper GI bleed, or other electrolyte/metabolic derangement. In order to obtain a workup, the patient did require anxiolysis with 2 mg of IM Versed and 50 mg of IM Benadryl. My shift is now coming to an end. At the time of signout to Dr. Squires, workup was pending. Discharge Plan Discharge Patient Disposition: Still a Patient
[2025-03-20] MEDS: 0.9 % SODIUM CHLORIDE 1,000 ML 1000 ML IV (19:51)
[2025-03-20 19:52] LABS: Hematocrit 48.6 % (42.0-54.0); Hemoglobin 16.3 g/dL (14.0-18.0); Immature Granulocytes Abs Auto 0.02 10^3/uL (0.00-0.03); Immature Granulocytes Pct Auto 0.2 % (0.0-0.5); Lymphocytes Absolute Auto 0.7 10^3/uL (1.2-3.8); Mean Corpuscular HGB Conc 33.5 g/dL (29.9-35.2); Mean Corpuscular Hemoglobin 29.5 pg (25.9-34.0); Mean Corpuscular Volume 87.9 fL (80.0-94.0); Platelet Count 225 10^3/uL (150-450); Red Blood Count 5.53 10^6/uL (4.70-6.10); White Blood Count 11.4 10^3/uL (4.0-11.0)
[2025-03-20] MEDS: PANTOPRAZOLE SODIUM 40 MG VIAL 80 MG IV (19:52)
--- OUTSIDE RECORDS SUMMARY | 2025-03-20 19:53 | XMS_ITS | Clinical Summary ---
Author Organization [facility] Address [address] [facility] [address] Care Team Providers Care Ep Tech Name Role Phone Berylcarolkwesi Uday CodiDixon DDS Unavailable [phone] Rigo Kevin DDS Unavailable [phone] Eliane Francisco DDS Unavailable Source Comments The following information is NOT included in Care Everywhere downloads:Psychiatric notes, ECG results, Cardiac Rehab notes, Pulmonary Function notes, data from [facility] (includes but not limited toPregnancy data,audiograms, eye exams, pre-surgical evaluation notes, well-child exam data).[facility] Allergies No known active allergies Medications MedicationSigDispense QuantityRefillsLast FilledStart DateEnd DateStatus ibuprofen (MOTRIN) 600 MG tablet Take 1 Tab by mouth every 6 hours as needed for Pain. 30 ctive Immunizations ImmunizationAdministration DatesNext DueDTP (CVX=01)04/02/1990,01/18/1989, 1987DTaP, unspecified formulation (TWE=282)01/27/1993Hep B (peds/adol, 3- dose) (CVX=08)07/03/1995,01/25/1995,12/21/1994Hib, unspecified formulation (CVX=17)04/02/1990,1987Influenza, injectable, quadrivalent, preservative (BJW=444)03/19/2019,03/07/2017Influenza, injectable, quadrivalent, preservative free (DIR=011)03/09/2021,02/18/2020,02/20/2018,03/04/2015Influenza, injectable, trivalent, preservative (MJG=846)03/13/2006Influenza, novel R4B3-52, injectable, preservative-free (QHE=703)03/31/2009Influenza, whole virus (CVX=16)03/05/2008 MMR, Dhyzpnp-Ejruv-Rmciozb (CVX=03)01/03/2000,01/18/1989Pfizer Monovalent (12+ yrs) SARS-COV-2 (COVID-19) vaccine, mRNA, spike protein, LNP, pres. free, 30 mcg/0.3mL dose (EGH=052)06/15/2020,1Polio, inactivated (IPV) (CVX=10) 01/27/1993,04/02/1990,01/18/1989,1987Td (adult), unspecified formulation (XYL=264)01/28/2003Tdap (OYX=952)01/30/2013 Social History Tobacco UseTypesPacks/DayYears UsedDateSmoking Tobacco: Never AssessedSex and Gender InformationValueDate RecordedSex Assigned at BirthNot on fileLegal Sex Male03/17/2012 12:03 PM ESTGender IdentityNot on fileSexual OrientationNot on file Last Filed Vital Signs Vital SignReadingTime TakenCommentsBlood Yorjepnf279/3706 5:31 PM EDT Baxxi7249 5:31 PM BIHFnhxdlaycoa54 ??C (96.8 ??F)10/27/2009 5:17 PM EDT Respiratory Lsqw9414 5:31 PM EDTOxygen Fvrjxbkznd02%10/27/2009 5:31 PM EDTInhaled Oxygen Concentration--Weight--Height--Body Mass Index-- Plan of Treatment Health MaintenanceDue DateLast DoneCommentsHIV Test2002Hepatitis C Qqhcqlbn61/02/2006Hepatitis A (HAV) Vaccine (optional start 19+ years)2006 Annual Wellness Visit (G0438)05/14/2008HPV Vaccine (optional start 27-45 years) 05/15/20142712Kwqwaqjbjxw10/02/2023Tetanus (Td or Tdap) Ocohxow69, 01/28/2003COVID-19 Vaccine ( season)/, 06/15/2020, 05/25/2020Influenza Vaccine (#1)/, 02/18/2020, 03/19/2019, Additional history existsShingles (RZV) Vaccine (1 of 2)2037Hepatitis B (HBV) DwgpfofGxjrqojtc06/20/1996, 01/25/1995, 12/21/1994Tdap BoosterCompleted 01/30/2013Pneumococcal Vaccine(s)Aged OutNo longer eligible based on patient's age to complete this topic Insurance * Guarantor: Brian Bailey TypeRelation to PatientDate of BirthPhone Billing AddressPersonal/PbyhkyWlbp10/02/1986 [phone] (Home) [address] [place] [address] [address] [place] [address] * Guarantor: Kassi Baileyccmiriam TypeRelation to PatientDate of BirthPhone Billing AddressDental SfvhnxKmmo04/02/1986 [phone] (Home) [address] [place] [address] [address] [place] [address] Care Teams Team MemberRelationshipSpecialtyStart DateEnd Date Uday Quinteros DDS 08/15/10 Rigo Kevin, DDS [address] [place] [address] 08/15/10 Francisco Del Rio DDS [address] [place] [address] KvxgamwwNowqeavuj50/6/20
--- OUTSIDE RECORDS SUMMARY | 2025-03-20 19:53 | XMS_ITS | Clinical Summary ---
[facility] Organization [facility] Address [address], [address] [place] [address] Care Team Providers Care Dietary Internship Name Role Phone Reji Platt MD Primary Care Provider Allergies Active AllergyReactionsCriticalityNoted DateCommentsEnvironmental/Seasonal 05/22/2018 Medications MedicationSigDispense QuantityRefillsLast FilledStart DateEnd DateStatus ARIPiprazole (ABILIFY) 15 MG tablet Take 45 mg by mouth daily.Active Alum & Mag Hydroxide-Simeth (MINTOX PLUS PO) Take 1 tablet by mouth 4 times daily as needed.Active lubiprostone (AMITIZA) 8 MCG CAPS capsule Take 24 mcg by mouth 2 times daily (with meals)Active Prochlorperazine Maleate (COMPAZINE PO) Take 15 mg by mouth daily.Active cloNIDine (CATAPRES) 0.2 MG tablet Take 0.2 mg by mouth 2 times daily.Active docusate sodium (COLACE) 100 MG capsule Take 100 mg by mouth 3 times daily.Active metoprolol (LOPRESSOR) 100 MG tablet Take 100 mg by mouth 2 times daily.Active Naltrexone HCl (REVIA PO) Take 50 mg by mouth dailyActive GuanFACINE HCl (TENEX) 2 MG TABS Take 2 mg by mouth 3 times daily.Active lisdexamfetamine (VYVANSE) 50 MG capsule Take 70 mg by mouth every morning. .Active ranitidine (ZANTAC) 150 MG capsule Take 150 mg by mouth 3 times daily.Active OLANZapine (ZYPREXA PO) Take 20 mg by mouth dailyActive iloperidone (FANAPT) 4 MG TABS tablet Take 4 mg by mouth Daily with lunchActive iloperidone (FANAPT) 8 MG TABS tablet Take 8 mg by mouth 2 times dailyActive montelukast (SINGULAIR) 10 MG tablet Take 10 mg by mouth nightlyActive omeprazole (PRILOSEC) 40 MG delayed release capsule Take 40 mg by mouth dailyActive QUEtiapine (SEROQUEL) 300 MG tablet Take 300 mg by mouth nightlyActive acetaminophen (TYLENOL) 325 MG tablet Take 650 mg by mouth every 6 hours as needed for PainActive loratadine (CLARITIN) 10 MG tablet Take 10 mg by mouth dailyActive bisacodyl (DULCOLAX) [address] 10 mg rectally daily as needed for ConstipationActive benzonatate (TESSALON) 100 MG capsule Take 100 mg by mouth 3 times daily as needed for CoughActive guaiFENesin (MUCINEX) 600 MG extended release tablet Take 1,200 mg by mouth 2 times daily as needed for CongestionActive ondansetron (ZOFRAN) 4 MG tablet Take 4 mg by mouth every 6 hours as needed for Nausea or VomitingActive senna (SENOKOT) 8.6 MG tablet Take 1 tablet by mouth 2 times daily as needed for ConstipationActive ARIPiprazole (ABILIFY) 30 MG tablet Take 30 mg by mouth dailyActive Active Problems Patient Care Coordination No te Formatting of this note migh t be different from the original. Dr Andres - [facility] Contact [phone] ProblemNoted DateDiagnosed DateGERD (gastroesophageal reflux disease)07/29/2014 Social History Tobacco UseTypesPacks/DayYears UsedDateSmoking Tobacco: NeverSmokeless Tobacco: Never Tobacco Cessation:Counseling Given: No Alcohol UseStandard Drinks/WeekCommentsNo0 (1 standard drink = 0.6 oz pure alcohol)Sex and Gender InformationValueDate RecordedSex Assigned at BirthNot on fileLegal TcvRyrs7306/23/2012 3:34 PM ESTGender IdentityNot on fileSexual OrientationNot on file Last Filed Vital Signs Vital SignReadingTime TakenCommentsBlood Kkmgvula292/7001 10:00 AM EST Ynazo3884 10:00 AM NMZIxupkxqzjyc75.1 ??C (97 ??F)05/30/2018 9:45 AM EST Respiratory Dudy1635 8:29 PM ESTOxygen Newzepoluw662%05/30/2018 10:00 AM ESTInhaled Oxygen Concentration--Nrkuow95.7 kg (158 lb)05/30/2018 8:10 AM EST Xbqofg920 cm (5' 8.5 )05/30/2018 8:10 AM ESTBody Mass Index23.67005/30/2018 8:10 AM EST Plan of Treatment Not on file Insurance Advance Directives TypeDate RecordedPatient RepresentativeExplanationACP-Advance Directive 03/03/2015 2:19 PM Care Teams Team MemberRelationshipSpecialtyStart DateEnd Date Reji Platt MD PCP - GeneralFamily Medicine01/27/13
--- OUTSIDE RECORDS SUMMARY | 2025-03-20 19:53 | XMS_ITS | CCD ---
Author Organization [facility] Care Team Providers Care R Programmer Name Role Phone JANETHDUNGENRICO LOAN I Admitting Unavailable LOAN ETIENNE I Attending Unavailable REJI MOSS Primary Care Unavailable PROVIDER, UNKNOWN Attending Unavailable PROVIDER, UNKNOWN Admitting Unavailable Aldair TIAN, Uday S. Unavailable Rigo Kevin DDS Unavailable Eliane TIAN, Francisco Unavailable Aldair TIAN, Uday S. Unavailable [phone] [place] TIAN, Rigo Hutton Unavailable Eliane TIAN, Francisco Unavailable ISA, DR ERJI Byrd Admitting Unavailable MOSS, DR REJI Byrd Attending Unavailable MOSS, DR REJI Byrd Consulting Unavailable MOSS, DR REJI Byrd Primary Care Unavailable MOSS, DR REJI Byrd Admitting Unavailable MOSS, DR REJI Byrd Attending Unavailable MOSS, DR REJI Byrd Primary Care Unavailable MOSSREJI ROBLES Primary Care Physician Reji Moss MD Primary Care Provider Byron Wiley Admitting Unavailable DolByron arias Attending Unavailable Byron Wiley Referring Unavailable Dipak Gaxiola DO Attending Provider [phone] NON STAFF Primary Care Provider UnavailMalika Ferrer DO Attending Provider Reji Moss MD Primary Care Provider [phone] EAGLE MICHELLE Attending Unavailable SHON DORMAN Attending Unavailable BYRON WILEY Attending Unavailable DOLBYRON ARIAS Referring Unavailable DOLBYRON ARIAS Referring Unavailable DOLCE, BYRON D Attending Unavailable BYRON WILEY Attending Unavailable BYRON WILEY Attending Unavailable BYRON WILEY Referring Unavailable BYRON WILEY Attending Unavailable BYRON WILEY Attending Unavailable BYRON WILEY Referring Unavailable BYRON WILEY Attending Unavailable Medications Current Medications MedicationDrug Class(es)DatesSig (Normalized)Sig (Original)acetaminophen 325 mg oral tablet (20 sources)acetaminophen (Tylenol) 325 MG tablet every 4 (four) hours Active aluminum hydroxide 200 mg / magnesium hydroxide 200 mg / simethicone 25 mg chewable tablet (20 sources)Start: 50-84-3073idfs 1 tablet by mouth every two hoursStart: 23-12-0861Tutwow Plus oral tablet, chewable Refill(s) 0 Start Date: 07/30/23 Status: OrderedStart: 16-04-2260jqsp 1 tablet by mouth four times dailyMintox Plus 200-200-25 MG chewable tablet CHEW 1 TABLET BY MOUTH 4 TIMES DAILY 06/05/2023 Activebisacodyl 10 mg rectal suppository (20 sources)Stimulant LaxativeStart: hr buPROPion hydrochloride 100 mg extended release oral tablet (20 sources)AminoketoneStart: 71-53-7829yutv 1 tablet by mouth twice dailyStart: 65-30-1495atKJYWbkh 100 mg ER Tab Refills(s) 0 Start Date: 07/30/23 Status: OrderedStart: 41-85-9726ppRFWKaxz (Wellbutrin) 100 MG tablet 06/06/2023 Active cloNIDine (20 sources)Central alpha-2 Adrenergic AgonistStart: 89-51-6519ykyzfjivc BID, Refills(s) 0 Start Date: 09/10/09 Status: OrderedcloNIDine (Catapres) 0.2 MG tablet 1 (one) time each day at the same time Activecyproheptadine hydrochloride 4 mg oral tablet (3 sources)Start: 46-47-2072omml 1 tablet by mouth once daily at bedtimediazePAM 10 mg oral tablet (20 sources)BenzodiazepineStart: 12-09-2024 End: 09-49-5144sydi 1 tablet by mouth every six hoursdiazePAM (Valium) 10 MG tablet Indications: Lisfranc dislocation, left, initial encounter Take 1 tablet (10 mg) by mouth every 6 (six) hours if needed for sedation for up to 2 days 2 tablet 12/09/2024 ActiveStart: 76-77-3834Ioddki 10 MG tablet Indications: Lisfranc dislocation, left, initial encounter Take 1 tablet (10 mg) by mouth 1 (one) time if needed for sedation (take 1 pill 30 minutes prior to to his office visit for suture removal) for up to 1 dose 1 tablet 12/09/2024 Activedicyclomine hydrochloride 10 mg oral capsule (20 sources)AnticholinergicStart: 54-08-6106ircp 1 capsule by mouth four times daily as neededdicyclomine (Bentyl) 10 MG capsule TAKE ONE CAPSULE BY MOUTH FOUR TIMES A DAY NEEDED 01/19/2023 ActiveStart: 01-01-2023 End: 76-82-3886ubqu 1 capsule by mouth four times dailydicyclomine 10 mg Cap 10 mg = 1 cap(s), Oral, QID, X 14 day(s), # 56 cap(s), Refills(s) 0 Start Date: 01/01/23 Stop Date: 01/15/23 Status: Vexvknm10 hr guaiFENesin 600 mg extended release oral tablet (20 sources)guaiFENesin (Mucinex) 600 MG 12 hr tablet Take 1,200 mg by mouth ActiveGuanfacine (20 sources)Central alpha-2 Adrenergic AgonistStart: 16-16-2704hktajjoqxx Oral, Once a day (at bedtime), Refills(s) 0 Start Date: 09/10/09 Status: Ordered guanFACINE (Tenex) 2 MG tablet Take by mouth Activehaloperidol 20 mg oral tablet (20 sources)Typical AntipsychoticStart: 14-00-3212hwuzkgifvnr (Haldol) 20 MG tablet 06/06/2023 Activeibuprofen 600 mg oral tablet (2 sources)Nonsteroidal Anti-inflammatory DrugStart: 92-30-7802cmwg 1 tablet by mouth every six hours as needed for painibuprofen (MOTRIN) 600 MG tablet Take 1 Tab by mouth every 6 hours as needed for Pain. 30 3 10/27/2009 ActiveEnulose (2 sources)Osmotic LaxativeStart: 04-35-2035Cnhpwkh 10 gram, Oral, Daily, Refills(s) 0 Start Date: 09/10/09 Status: OrderedlevETIRAcetam 500 mg oral tablet (3 sources)Start: 49-66-4931qcve 1 tablet by mouth twice dailylinaclotide 0.29 mg oral capsule (20 sources)Guanylate Cyclase-C AgonistStart: 35-64-2231Ttyncqf 290 mcg oral capsule Refills(s) 0 Start Date: 07/30/23 Status: OrderedStart: 13-11-4567aksx 1 capsule by mouth in the morningLinzess 290 MCG capsule Take 290 mcg by mouth in the morning. 05/29/2023 Activelisdexamfetamine dimesylate 70 mg oral capsule (20 sources)Central Nervous System StimulantStart: 47-54-7260wrpq 1 capsule by mouth once dailyLoratadine (20 sources)Start: 08-25-7299jzqqzsxpbn 10 mg, Refills(s) 0 Start Date: 09/10/09 Status: Orderedtake 1 tablet by mouth once dailyloratadine (Claritin) 10 MG tablet TAKE ONE TABLET BY MOUTH ONCE DAILY CLARITIN Activemetoprolol tartrate 25 mg oral tablet (20 sources)beta-Adrenergic BlockerStart: 68-98-7837ifsd 1 tablet by mouth twice dailyStart: 02-84-8879dmtxqylwca Refills(s) 0 Start Date: 09/10/09 Status: Orderedtake 1 tablet by mouth in the morningmetoprolol tartrate (Lopressor) 100 MG tablet Take 100 mg by mouth in the morning and 100 mg beforebedtime. Active mirtazapine 15 mg oral tablet (20 sources)take 1 tablet by mouth at bedtimemirtazapine (Remeron) 15 MG tablet Take 15 mg by mouth at bedtime Activemontelukast 10 mg oral tablet (20 sources)Leukotriene Receptor AntagonistStart: 21-94-3948egve 1 tablet by mouth once daily at bedtimenaltrexone hydrochloride 50 mg oral tablet (20 sources)Opioid AntagonistStart: 01-73-6077emgx 1 tablet by mouth once daily Start: 81-63-4236zkonxlczqu Refills(s) 0 Start Date: 09/10/09 Status: Ordered Zyprexa (2 sources)Atypical AntipsychoticStart: 28-80-0742Fajsrfs Refills(s) 0 Start Date: 4/30/10 Status: Orderedomeprazole 40 mg delayed release oral capsule (20 sources)Proton Pump InhibitorStart: 08-08-6807kzmk 1 capsule by mouth once dailyondansetron 4 mg oral tablet (20 sources)Serotonin-3 Receptor Antagonistondansetron (Zofran) 4 MG tablet every 12 (twelve) hours Activepolyethylene glycol 3350 10057 mg powder for oral solution (20 sources)Osmotic LaxativeStart: 32-57-1886najzjjrmynwp glycol, PEG, 3350 (Glycolax) 17 GM/SCOOP powder TAKE 17 GRAMS BY MOUTH ONCE DAILY IF NO BOWEL MOVEMENT IN 4 DAYS NEEDED 2023 ActiveStart: 81-68-3696nhtofieyeoxp glycol 3350 17 gram, Oral, Daily, Refill(s) 0 Start Date: 09/10/09 Status: OrderedStart: 65-23-7202wqhochuqzlmk glycol 3350 17 gram, Oral, Daily, 0 Start Date: 09/10/09 Status: Orderedprochlorperazine 10 mg oral tablet (20 sources)PhenothiazineStart: 76-30-5107bxvgbcdvtjklqena (Compazine) 10 MG tablet 06/06/2023 ActiveQUEtiapine 400 mg oral tablet (20 sources)Atypical AntipsychoticStart: 37-26-8620DLQyijzjzp (SEROquel) 400 MG tablet 06/06/2023 Activesennosides, jail 8.6 mg oral tablet (20 sources)sennosides (Senokot) 8.6 MG tablet 1 (one) time each day at the same time ActiveSertraline (2 sources)Serotonin Reuptake InhibitorStart: 65-48-2406dfdjyykwxs Oral, Daily, Refills(s) 0 Start Date: 09/10/09 Status: Ordered Problems Problem ClassificationProblemDateDocumented DateEpisodic/ChronicAbdominal hernia (3 sources)Diaphragmatic hernia; Translations: [Diaphragmatic hernia without obstruction or gangrene]Onset: 30-90-6154MzetfuvuVzfhdhp disorders (2 sources)Obsessive-compulsive nidozmut04-71-3254BonertbJiuehs (2 sources)Latrll27-95-7221XcoldboXxormwmmd-inomrrw, conduct, and disruptive behavior disorders (2 sources)Attention deficit hyperactivity anabhukz15-87-8816Sissbup Developmental disorders (2 sources)Intellectual functioning sadwerpucy25-72-4190ZyjuoofFfhnoyyjn usually diagnosed in infancy, childhood, or adolescence (2 sources)Autistic disorder; Translations: [Autism spectrum disorder]07-25-2013 ChronicEpilepsy; convulsions (6 sources)Epilepsy; Translations: [Epilepsy, unspecified, not intractable, without status epilepticus]47-14-5336DvltjeqNvupzulgkv disorders (4 sources)Gastroesophageal reflux disease without esophagitis; Translations: [Gastro-esophageal reflux disease without esophagitis]Onset: 66-61-6392Fjkconj Essential hypertension (2 sources)Hypertensive yufjxelm80-96-7059YsdskuzBaxtsimm of lower limb (6 sources)Closed fracture of second metatarsal bone; Translations: [Displaced fracture of second metatarsal bone, left foot, initial encounter for closed fracture]81-24-6170ZgptsyayVzzdnpraxcbyez ulcer (except hemorrhage) (2 sources)Peptic -85-3605YbdufboOjawu disorders and dislocations; trauma-related (15 sources)Traumatic dislocation of joint of foot; Translations: [Dislocation of tarsometatarsal joint of leftfoot, initial encounter]85-76-1131Xeqlqlrr Miscellaneous mental health disorders (6 sources)Mental disorder; Translations: [Mental disorder, not otherwise specified]37-58-0827KwmwugfPvmqfli (3 sources)Onychomycosis due to dermatophyte ; Translations: [Tinea unguium] 84-23-5443FwkxhdfySaqtgu and vomiting (3 sources)Vomiting; Translations: [Vomiting, unspecified]Onset: 01-01-2023 EpisodicOther aftercare (4 sources)Other correction (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; Translations: [OTH LONG-TERM CURRENT DRUG THERAPY]Onset: 91-84-9942OomuulslOmxtp connective tissue disease (4 sources)Pain in toe; Translations: [Pain in right toe(s)]71-91-1441Gcemvqtw Other connective tissue disease (10 sources)Pain in left foot; Translations: [Pain in left foot]11-19-2024 EpisodicOther connective tissue disease (1 source)Pain of toe of left foot; Translations: [Pain in left toe(s)] 22-16-9774PlvimwulCsrqm connective tissue disease (1 source)Pain of toe of right foot; Translations: [Pain in right toe(s)] 07-56-1731WzouzoawXzasc gastrointestinal disorders (3 sources)Burping; Translations: [Eructation]Onset: 05-16-4555PuqwsucoUyref nervous system disorders (6 sources)Does not speak; Translations: [Aphasia]13-71-5617XcjqofaZmmyz nutritional; endocrine; and metabolic disorders (2 sources)Loss of appetite; Translations: [Anorexia]Onset: 80-54-3913Rzwlcgnk Other nutritional; endocrine; and metabolic disorders (1 source)Decrease in kovimgky15-51-3182YwxbkrkgHslxe skin disorders (2 sources)Dystrophia unguium; Translations: [Nail dystrophy]97-48-7116Lratiwyo Other upper respiratory disease (2 sources)Seasonal -56-1988MyljmurLjwykhjdznmp (2 sources)CHRONIC LEFT INFECTED GROIN CYST; Translations: [CHRONIC LEFT INFECTED GROIN CYST]Onset: 05-30-2018 Results Test NameValueInterpretationReference RangeFacilityXR Foot - left 3 Viewson [id number] Result: Three views were taken today AP/MO/LAT foot: trabeculation noted across the fracture site Lisfranc's joint in good position and alignment fixation intact [facility] (narrative[facility] 3 Viewson [id number] Result: Radiographs: AP/MO/LAT: excellent position and alignment of the Lisfranc's fracture dislocation reduction fixation intact. [facility] PartnersRadiology Study observation (narrative)[facility] CenterOperative Reporton [id number] ReportOperative Report SURGERY DATE: 11/25/2024 MEDICAL DEVICE SALES REPRESENTATIVE: Kyler Wiley DPM PREOPERATIVE DIAGNOSIS: Lisfranc fracture-dislocation left, displaced POSTOPERATIVE DIAGNOSIS: Lisfranc fracture-dislocation left, displaced OPERATION: 1. Open reduction and internal fixation Lisfranc fracture-dislocation left 2. Application of below-knee posterior splint ANESTHESIA: Popliteal block MATERIALS: 1. Arthrex Lisfranc fracture-dislocation plate with locking and nonlocking screws 3.5 x4 2. AlloSync Pure HEMOSTASIS: Left midcalf tourniquet inflated to 300 mmHg ESTIMATED BLOOD LOSS: Minimal CONDITION OF PATIENT: Stable INDICATION FOR PROCEDURE: The patient is a nonverbal handicapped patient who lives in the [facility]. He jumped off a glider and caused a displaced Lisfranc fracture-dislocation with some mild comminution of the 2nd metatarsocuneiform joint. He has been immobilized. No fracture blisters are present. Consent was obtained from the guardian. We discussed risks and possible complicationswith the patient's guardian including the need for Lisfranc fusion down the road. All possible risks and complications were explained to the patient's guardian including but not limited to pain, swelling, numbness, tingling, infection, need for additional surgery, recurrence of the condition, deep vein thrombosis, development of complex regional pain syndrome. The patient's guardian understood all possible risks and complications and has consented for the above stated procedure. PROCEDURE: The patient was taken from the Preoperative Holding Area and placed on the Operating Room table after a popliteal block was administered. The left foot and leg were prepped and draped in the usual sterile manner. Prior to prepping and draping a well-padded pneumatic midcalf tourniquet was placed around the patient's midcalf but not yet inflated. An Esmarch bandage was used to exsanguinate the limb, and the tourniquet was inflated to 300 mmHg. Attention was directed to the base of the2nd metatarsal where a linear incision was made medial to the base of the 2nd metatarsal and carried onto the midfoot cuneiform area. Dissection was carried down through subcutaneous tissues where all superficial venous structures that were encountered were clamped and meticulously electrocauterized. All neurovascular structures were retracted. Dissection was carried down to the level of the deepfascia, which was incised. We retracted all neurovascular bundles as well as the extensor tendons in that region. We then undermined the incision the base of the 1st metatarsocuneiform region as well as the 2nd metatarsocuneiform region. This allowed us to expose the Lisfranc joint. There was displacement in the Lisfranc joint noted which was reduced. We freed the entire Lisfranc jointup at the level of the 2nd and 3rd metatarsocuneiform joints. There was a small section of comminution at the base of the 2nd metatarsal which was refreshed and placed back into position, and this allowed us to affix an Arthrex carla Lisfranc compression plate at the base of the 1st metatarsal atthe medial cuneiform and base of the 2nd as well as the intermediate cuneiform. The screws were then fixated in a way in which compression was then allowed to occur at the base of the 2nd metatarsal medial cuneiform joint. This allowed us to stabilize the Lisfranc fracture-dislocation. This was performed under C-arm guidance and had excellent reduction of the Lisfranc fracture-dislocation. At this time we used AlloSync Pure and packed it into the gaps within the base of the 2nd metatarsal. Thiswas performed under C-arm guidance. Position of the Lisfranc joint was in good position and alignment and appeared to be quite stable. Then we lavaged the area with normal sterile saline. We then repacked some of the AlloSync Pure into the graft site where there was a small gap noted. We then closed deep structures with 2-0 and 3-0 Vicryl, subcutaneous tissues with 4-0 Vicryl, and the skin was closed with ramona. Dressing consisted of Betadine-soaked Adaptic, 4x4's, Raina, Kerlix, and a well-padded below-knee posterior splint. an Mo. The patient tolerated the procedure and anesthesia well and left the Operating Room to Postanesthesia Care Unit with vital signs stable and vascular status intact. In the Postanesthesia Care Unit he was given both written and oral homegoing instructions andwill follow up in the office in four days and will be nonweightbearing on the foot. PATRICK Cruz Dictated: 11/25/2024 [id number] Transcribed: 11/25/2024NoRiverview Health InstituteComment on above:Result Comment: Electronically Signed By: Byron Wiley DPM\.br\Date and Time Signed: 12/09/24 13:14 EDTXR Foot - left 2 Viewson [id number] Result: Radiographs: AP/MO/LAT: excellent position and alignment of the Lisfranc's fracture dislocation reduction fixation intact. [facility] HealthcareRadiology Study observation (narrative)[facility] HealthcareMain OR Intraoperative Recordon [id number] OR Intraoperative RecordMain OR Intraoperative Record IntraOp Document Type FT Summary Primary Physician: Byron Wiley DPM Finalized Date/Time: 11/26/24 09:38:33 Pt. Name: RENA BAILEY Carson Hung./Sex: 1985 Male Med Rec #: [id number] Physician: Byron Wiley DPM Financial #: [id number] Pt. Type: A Room/Bed: [place] [address] Admit/Disch: 11/25/24 09:57:15 - 11/25/24 15:35:00 Institution: Case Times FT Entry 1 Patient Times In Room 11/25/24 12:44:00 Out Room 11/25/24 13:59:00 Procedure Times Start 11/25/24 13:02:00 Stop 11/25/24 13:53:00 Anesthesia Times Start 11/25/24 12:44:00 Stop 11/25/24 13:59:00 Block Timeout w11/25/24 12:24:00 Anesthesia Last Modified By: Mehnaz BLACKWELL, Dee Charles 11/25/24 13:59:35 General Comments: BLOCK DONE BY DR. ARIAS. ASSISTED BY JOEL MONIQUE. TO: 1224. HR= 67BPM, O2= 100% ON ROOM AIR -ROSALVA GUEVARA Case Attendance FT Entry 1 Entry 2 Entry 3 Case Attendee Corey Boss DPM, Marc D Dolce DPM, Kyler Scherer Role Performed Anesthesiologist Surgeon - Primary Surgeon - Assist 1 Supervisor [employer] Time In 11/25/24 12:44:00 11/25/24 12:44:00 11/25/24 12:44:00 Time Out 11/25/24 13:59:00 11/25/24 13:59:00 11/25/24 13:28:00 Procedure METATARSAL FRACTURE METATARSAL FRACTURE METATARSAL FRACTURE ORIF(Left) ORIF(Left) ORIF(Left) Comments DR. ARIAS SUPERVISING Last Modified By: Mehnaz BLACKWELL, Dee Sutherland RN, Dee Sutherland RN, Dee Charles 11/25/24 Fara Charles 11/25/24 Fara P 11/25/24 14:02:25 14:02:25 14:02:25 Entry 4 Entry 5 Entry 6 Case Attendee Mehnaz BLACKWELL, Dina Jacinto, Solitario Charles Role Performed Varnish Thinner - Primary Scrub - Primary Staff - Other Time In 11/25/24 12:44:00 11/25/24 12:44:00 11/25/24 12:44:00 Time Out 11/25/24 13:59:00 11/25/24 13:59:00 11/25/24 13:59:00 Procedure METATARSAL FRACTURE METATARSAL FRACTURE METATARSAL FRACTURE ORIF(Left) ORIF(Left) ORIF(Left) Comments HELPING IN ROOM Last Modified By: Mehnaz RN, Dee Sutherland RN, Dee Sutherland RN, Dee Charles 11/25/24 Fara P 11/25/24 Fara P 11/25/24 14:02:25 14:02:25 14:02:25 Entry 7 Entry 8 Case Attendee Diaz RT(R), Jennifer Cortes DRESSED POULTRY GRADER, Zak K Role Performed Senior Accountant Analyst DRESSED POULTRY GRADER/SA Time In 11/25/24 12:44:00 11/25/24 13:14:00 Time Out 11/25/24 13:59:00 11/25/24 13:59:00 Procedure METATARSAL FRACTURE METATARSAL FRACTURE ORIF(Left) ORIF(Left) Comments OUT OF THE ROOM AT 1255. BACK IN ROOM AT 1326 Last Modified By: Mehnaz BLACKWELL, Dee Sutherland RN, Dee Chaudhari P 11/25/24 Fara P 11/25/24 14:02:25 14:02:25 General Comments: OLIVERIO GREY PRESENT FOR CASE; LOGAN TRAORE, MED STUDENT OBSERVING FOR CASE -Andrea SUTHERLAND RNyard coordinator Protocols FT Pre-Care Text: Implements protective measures prior to operative or invasive procedure, confirms identity before the operative or invasive procedure, verifies operative procedure, surgical site, and laterality Entry 1 Procedure(s) METATARSAL FRACTURE Patient Identity Birthday, ID Band ORIF(Left) Verified (select at Check, Patient least 2): Participation Consents / H and P Anesthesia Consent, Operative Site Present Verified H&P, Surgery/Procedure Marking Verified Consent Surgical Site Yes Laterality Verified Yes Verified Procedure Verified Yes Correct Patient Yes Position Verified Availability Equipment, Implant, Prep Dry n/a Verified (If Medication, X-ray Applicable) PreOp Antibiotic Yes Time Out Byron Wiley DPM, Given Participants Corey Boss, Rosie NGUYEN, Kyler Scherer, Mehnaz BLACKWELL, Dee Charles, Dina Clark, Solitario Brown, Diaz RT(R), Jennifer Beasley Time Out Complete 11/25/24 13:00:00 Outcomes Met? Yes Last Modified By: Dee Sutherland RN 11/25/24 13:05:19 Post-Care Text: The patient is free from signs and symptoms of injury caused by extraneous objects Allergy Information FT Pre-Care Text: Verifies allergies Entry 1 Allergies Reviewed? Yes Allergies Reviewed Self/Patient With Outcomes Met? Yes Last Modified By: Dee Sutherland RN 11/25/24 13:05:25 Post-Care Text: The patient received appropriate medication(s) safely administered during the perioperative period Surgical Procedures FT Entry 1 Procedure Description Procedure METATARSAL FRACTURE ORIF Modifiers Left Surgeon Description OPEN REDUCTION INTERNAL FIXATION OF LEFT FOOT METATARSALS 2, 3, 4 Primary Procedure Yes Primary Surgeon Byron Wiley DPM Start 11/25/24 13:02:00 Stop 11/25/24 13:53:00 Anesthesia Type General Surgical Service Podiatry Wound Class 1 - Clean Last Modified By: Dee Sutherland RN 11/25/24 13:55:31 General Case Data FT Pre-Care Text: Classifies surgical wound, implements aseptic technique, initiates traffic control Entry 1 Case Information OR OR 4 FT Case Level Level 4 Wound Class 1 - Clean Specialty Podiatry ASA Class 3 Preop Diagnosis CLOSED DEPLACED Postop Same A (more content not included)... [facility]Dis[facility] Instructionson [id number] InstructionsDischarge Instructions RENA BAILEY :1985 Visit Date:11/25/2024 Inpatient Discharge Instructions Your Care Team Admitting Physician - Byron Wiley DPM Referring Physician - Byron Wiley DPM Reason for Your Visit CLOSED DEPLACED FRACTURE OF 2, 3, AND 4 METATARSEL BONE LEFT FOOT Your Diagnosis Metatarsal fracture Tests Performed XR Fluoroscopy Up to 1 Hour -- Results Pending -- Please visit your patient portal for your results or contact your primary care physician. This Is Your Medications List Al hydroxide/Mg [...] quetiapine (Seroquel 400 mg oral tablet) sertraline What to do next Instructions From Your Doctor No qualifying data available. New Follow Up Appointments after Discharge Follow Up with Byron Wiley When: In 1 week 12/02/2024 EDT Where: [facility] [place] [address] [place] [address]- 1 Business (1) Medications What How Much When Instructions Next Dose Unchanged Al hydroxide/ Mg hydroxide/ simethicone (Mintox Plus oral tablet, chewable) Unchanged buPROPion (buPROPion 100 mg ER Tab) 1 Tablets By Mouth 2 times a day Unchanged clonidine 2 times a day Unchanged guanfacine By Mouth Once a day (at bedtime) Unchanged haloperidol (haloperidol 20 mg oral tablet) 1 Tablets By Mouth 2 times a day Unchanged lactulose (Enulose) 10 Gram By Mouth Every day Unchanged linaclotide (Linzess 290 mcg oral capsule) Unchanged lisdexamfetamine (Vyvanse 70 mg oral capsule) 1 Capsules By Mouth Once a day (in the morning) Unchanged loratadine 10 Milligram Unchanged metoprolol 125 Milligram By Mouth 3 times a day Unchanged montelukast (montelukast 10 mg Tab) 1 Tablets By Mouth Once a day (in the evening) Unchanged naltrexone 100 Milligram By Mouth 2 times a day Unchanged olanzapine (Zyprexa) Unchanged omeprazole (omeprazole 40 mg Cap-DR) 1 Capsules By Mouth Every day Unchanged polyethylene glycol 3350 17 Gram By Mouth Every day Unchanged prochlorperazine (Compazine 10 mg oral tablet) 15 Milligram Unchanged quetiapine (Seroquel 400 mg oral tablet) 1 Tablets By Mouth Every day Unchanged sertraline By Mouth Every day Test Results No qualifying data available. Allergies No Known Allergies Problems Ongoing - Any problem that you are currently receiving treatment for. ADHD - Attention deficit disorder with hyperactivity ASTHMA Autistic disorder Belching GERD [Gastroesophageal reflux disease] Hiatal hernia HYPERTENSION Mental retardation Obsessive compulsive disorder Peptic ulcer disease Poor appetite Seasonal allergy Seizures Vomiting Devices Implanted/Removed This Visit Notice: You have devices implanted this visit that may not be MRI compatible. Implanted METATARSAL FRACTURE ORIF Foot L 3.5MM X 18MM LOW PROFILE SCREWS, TITANIUM, CORTICAL 11/25/2024 3.5MM X 22MM LOW PROFILE SCREWS, LOCKING, TITANIUM, CORTICAL (3), 11/25/2024 GRAFT ALLOSYNC DBM GEL 1CC [ABS-2012-05] 11/25/2024 LISFRANC PLATE, LEFT 11/25/2024 Education Materials [place], [place] Byron Wiley, DPStephen, FACFAS POST OPERATIVE INSTRUCTIONS Keep bandage clean and dry and DO NOT REMOVE Keep foot elevated on white foam pillow Apply cryocuff to top of ankle, one hour on one hour off, until first office visit Non weight bearing on operative foot. Take pain medications as directed Do not be alarmed if you notice slight bleeding on the bandage, this is normal Report any increase in swelling to Dr. Wiley immediately Resume regular diet. Call the office if you develop: persistent bleeding temperature above 100 degrees persistent vomiting calf pain or shortness of breath redness or pus at operative site Call the office tomorrow for 1st post-operative dressing change appointment. If you have any problems or questions, feel free to call the doctor at: [phone] or [phone] Wiley paged. Patient signature Date Dr. Byron Wiley, DPStephen, FACFAS Date Revised: 06-21 Common Emergency Awareness Tips IS IT A STROKE? Act FAST and Check for these signs: FACE Does the face look uneven? ARM Does one arm drift down? SPEECH Does their speech sound strange? TIME Call at (more content not included)...[facility] Comment on above:Result Comment: Electronically Signed By: Scar BLACKWELL, Nadia Byrd\.jaime\Date and Time Signed: 11/25/24 14:53 EDTInpatient Patient Summaryon [id number] Patient SummaryInpatient Patient Summary [address] [address] [facility] Clinical Discharge Instructions PERSON INFORMATION Name: RENA BAILEY [facility]#:[id number] PHYSICIANS Admitting Physician: Byron Wiley DPM Attending Physician: Byron Wiley DPM PCP: REJI MOSS DO Discharge Diagnosis: Comment: PATIENT EDUCATION INFORMATION Instructions: Rosie - Post Operative Instructions (Revised 01/08/14) (Custom) Medication Leaflets: Follow up: With: Address: When: Byron SOFIA - [facility], [facility], [facility] [address], [place] [address] 0 Business (1) In 1 week 12/02/2024 MEDICATION LIST Medications to Continue with No Changes Other Medications Al hydroxide/Mg hydroxide/simethicone (Mintox Plus oral tablet, chewable) buPROPion (buPROPion 100 mg ER Tab) 1 Tablets By Mouth 2 times a day. clonidine 2 times a day. guanfacine By Mouth once a day (at bedtime). haloperidol (haloperidol 20 mg oral tablet) 1 Tablets By Mouth 2 times a day. lactulose (Enulose) 10 Gram By Mouth every day. linaclotide (Linzess 290 mcg oral capsule) lisdexamfetamine (Vyvanse 70 mg oral capsule) 1 Capsules By Mouth once a day (in the morning). loratadine 10 Milligram. metoprolol 125 Milligram By Mouth 3 times a day., takes a 100mg tab and 25mg tab for a total 125 montelukast (montelukast 10 mg Tab) 1 Tablets By Mouth once a day (in the evening). naltrexone 100 Milligram By Mouth 2 times a day. olanzapine (Zyprexa) omeprazole (omeprazole 40 mg Cap-DR) 1 Capsules By Mouth every day. Refills: 3. polyethylene glycol 3350 17 Gram By Mouth every day. prochlorperazine (Compazine 10 mg oral tablet) 15 Milligram., 1.5 tabs quetiapine (Seroquel 400 mg oral tablet) 1 Tablets By Mouth every day. sertraline By Mouth every day. Comment:[facility] PAC[facility] I Recordon [id number] OR PACU I RecordMain OR PACU I Record PACU Phase I Document Type FT Summary Primary Physician: Byron Wiley DPM Finalized Date/Time: 11/25/24 15:41:44 Pt. Name: RENA BAILEY/Sex: 1985 Male Med Rec #: [id number] Physician: Byron Wiley DPM Financial #: [id number] Pt. Type: Room/Bed: [place] [address] Admit/Disch: 11/25/24 09:57:15 - Institution: Case Times PACU I FT Pre-Care Text: Identifies barriers to communication and implements measures to provide psychological support Develops individualized plan of care, and ensures continuity of care Maintains patient's dignity and privacy, and maintains patient confidentiality Identifies and reports philosophical, cultural, and spiritual beliefs and values Identifies individual values and wishes concerning care Implements aseptic technique, and administers prescribed antibiotic therapy and immunizing agents as ordered Evaluates postoperative tissue perfusion Implements thermoregulation measures, and monitors body temperature Evaluates postoperative respiratory status Evaluates postoperative cardiac status Evaluates postoperative neurological status Assesses pain control, collaborated in initiating patient-controlled analgesia and implements alternative methods of pain control Verifies allergies, administers prescribed medications and solutions, evaluates response to medications Entry 1 In PACU I 11/25/24 14:01:00 Discharge from PACU 11/25/24 14:31:00 I Outcomes Met? Yes Last Modified By: Abigail Robles RN 11/25/24 15:40:55 Post-Care Text: The patient demonstrates knowledge of the expected response to the operative or invasive procedure The patient's care is consistent with the individualized perioperative plan of care The patient's rightto privacy is maintained The patient's value system, lifestyle, ethnicity, and culture are considered, respected, and incorporated into the perioperative plan of care The patient participates in decisions affecting his or her perioperative plan of care The patient is free from signs and symptoms of infection The patient has wound/tissue perfusion consistent with or improved from baseline levels established preoperatively The patient is at or returning to normothermia at the conclusion of the immediate postoperative period The patient's respiratory function is consistent with or improved from baseline levels established preoperativelyThe patient's cardiovascular status is consistent with or improved from baseline levels established preoperatively The patient's cardiovascular status is consistent with or improved from baseline levels established preoperatively The patient demonstrates and/or reports adequate pain control throughout the perioperative period The patient received appropriate medication(s), safely administered during the perioperativeperiod Acuity Level PACU I FT Entry 1 Start Time 11/25/24 14:01:00 Stop Time 11/25/24 14:31:00 Acuity Level Acuity Level I Last Modified By: Abigail Robles RN 11/25/24 15:41:40 Finalized By: Abigail Robles RN Document Signatures Signed By: Abigail Robles RN 11/25/24 15:41NoR[facility]view Health InstituteMain OR PACU II Recordon [id number] OR PACU II RecordMain OR PACU II Record PACU Phase II Document Type FT Summary Primary Physician: Byron Wiley DPM Finalized Date/Time: 11/25/24 15:54:35 Pt. Name: RENA BAILEY/Sex: 1985 Male Med Rec #: [id number] Physician: Byron Wiley DPM Financial #: [id number] Pt. Type: A Room/Bed: [place] [address] Admit/Disch: 11/25/24 09:57:15 - 11/25/24 15:35:00 Institution: Case Times PACU II FT Pre-Care Text: Identifies barriers to communication and implements measures to provide psychological support and determines knowledge level Develops individualized plan of care, and ensures continuity of care Maintains patient's dignity and privacy, and maintains patient confidentiality Identifies and reports philosophical, cultural, and spiritual beliefs and values Identifies individual values and wishes concerning care administers prescribed antibiotic therapy and immunizing agents as ordered, Evaluates postoperative tissue perfusion Implements thermoregulation measures, and monitors body temperature Evaluates postoperative respiratory statusEvaluates postoperative cardiac status Evaluates postoperative neurological status Assesses pain control, collaborated in initiating patient-controlled analgesia and implements alternative methods of pain control Verifies allergies, administers prescribed medications and solutions, evaluates response to medications Entry 1 In PACU II 11/25/24 14:35:00 Discharge from PACU 11/25/24 15:35:00 II Outcomes Met? Yes Last Modified By: Nadia Abbott RN 11/25/24 15:54:34 Post-Care Text: The patient demonstrates knowledge of the expected response to the operative or invasive procedure The patient's care is consistent with the individualized perioperative plan of care The patient's rightto privacy is maintained The patient's value system, lifestyle, ethnicity, and culture are considered, respected, and incorporated into the perioperative plan of care The patient participates in decisions affecting his or her perioperative plan of care. The patient is free from signs and symptoms of infection The patient has wound/tissue perfusion consistent with or improved from baseline levels established preoperatively The patient is at or returning to normothermia at the conclusion of the immediate postoperative period The patient's respiratory function is consistent with or improved from baseline levels established preoperativelyThe patient's cardiovascular status is consistent with or improved from baseline levels established preoperatively The patient's neurological status is consistent with or improved from baseline levels established preoperatively The patient demonstrates and/or reports adequate pain control throughout the perioperative period The patient received appropriate medication(s), safely administered during the perioperativeperiod Finalized By: Nadia Abbott RN Document Signatures Signed By: Nadia Abbott RN 11/25/24 15:54NoRiverview Health InstituteOutpatient Surgery Discharge Instructionon [id number] Surgery Discharge InstructionOutpatient Surgery Discharge Instruction [address] [address] Patient Discharge Instructions PERSON INFORMATION Name: RENA BAILEY Date of : 1985 Current Date: 11/25/2024 14:15:06 PHYSICIANS Admitting Physician: Byron Wiley DPM Discharge Diagnosis: RENA BAILEY has been given the following list of follow-up instructions, prescriptions, and patient education materials: IF UNABLE TO CONTACT YOUR PHYSICIAN AND YOU FEEL IT IS AN EMERGENCY, GO TO THE NEAREST EMERGENCY ROOM OR CALL 911 I, RENA BAILEY, have received the attached patient education materials/instructions and have verbalized understanding: May we do a follow up call? Yes No I was present when discharge instructions were given Patient Signature Date Clinican/Nurse Signature Date Follow up: With: Address: When: Byron [facility]FIA [facility] [address], [place] [address] 0 Business (1) In 1 week 12/02/2024 Pharmacy Information: You may receive a survey from Radha Egan asking you to rate your care experience. Your feedback is important and will help us understand what we do well and how we can improve the quality of care we provide to you, your loved ones and our community. It???s an honor to serve you. [facility] HERE ARE THE MEDICATION CHANGES THAT OCCURRED DURING YOUR HOSPITAL STAY Medications to Continue with No Changes Other Medications Al hydroxide/Mg hydroxide/simethicone (Mintox Plus oral tablet, chewable) buPROPion (buPROPion 100 mg ER Tab) 1 Tablets By Mouth 2 times a day. clonidine 2 times a day. guanfacine By Mouth once a day (at bedtime). haloperidol (haloperidol 20 mg oral tablet) 1 Tablets By Mouth 2 times a day. lactulose (Enulose) 10 Gram By Mouth every day. linaclotide (Linzess 290 mcg oral capsule) lisdexamfetamine (Vyvanse 70 mg oral capsule) 1 Capsules By Mouth once a day (in the morning). loratadine 10 Milligram. metoprolol 125 Milligram By Mouth 3 times a day., takes a 100mg tab and 25mg tab for a total 125 montelukast (montelukast 10 mg Tab) 1 Tablets By Mouth once a day (in the evening). naltrexone 100 Milligram By Mouth 2 times a day. olanzapine (Zyprexa) omeprazole (omeprazole 40 mg Cap-DR) 1 Capsules By Mouth every day. Refills: 3. polyethylene glycol 3350 17 Gram By Mouth every day. prochlorperazine (Compazine 10 mg oral tablet) 15 Milligram., 1.5 tabs quetiapine (Seroquel 400 mg oral tablet) 1 Tablets By Mouth every day. sertraline By Mouth every day. PATIENT EDUCATION INFORMATION Instructions: [place], [place] Byron Wiley DPM, FACFAS POST OPERATIVE INSTRUCTIONS Keep bandage clean and dry and DO NOT REMOVE Keep foot elevated on white foam pillow Apply cryocuff to top of ankle, one hour on one hour off, until first office visit Non weight bearing on operative foot. Take pain medications as directed Do not be alarmed if you notice slight bleeding on the bandage, this is normal Report any increase in swelling to Dr. Wiley immediately Resume regular diet. Call the office if you develop: persistent bleeding temperature above 100 degrees persistent vomiting calf pain or shortness of breath redness or pus at operative site Call the office tomorrow for 1st post-operative dressing change appointment. If you have any problems or questions, feel free to call the doctor at: [phone] or [phone] Wiley paged. Patient signature Date Dr. Byron Wiley, DPStephen, FACFAS Date Revised: 06-21 Medication Leaflets:[facility] HospitalProceduralon 11-25-[facility]24 ProceduralProcedural Patient: RENA BAILEY Age: 39 years Sex: Male : 1985 Associated Diagnoses: None Author: Landon Arias MD Procedure Nerve Block Block Type: Popliteal block. Laterality: Left. Informed consent for anesthesia management: Anesthesia options discussed including nerve block, Description of the procedure, risks, benefits, and alternatives was provided, The patient's questions were addressed. Time out: Confirmed correct patient, procedure and site. Time: Date/Time 11/25/2024 12:32:00. Indication: Block for postoperative pain management as requested by surgeon. Anesthesia Method: IV Sedation with monitored anesthesia care, The patient remained awake and able to interact in a meaningful way throughout the procedure. Preparation: The patient was placed in the following position Lateral, Continuous pulse oximetry applied, Using maximal sterile barrier technique per current [facility] guidelines including hand hygeine, Guidance (Ultrasound used to identify anatomical landmarks, Using sterile gel and probe covers, Permanent image retained), The site was prepped with ChloraPrep. Procedure: Anesthetic Agent right lateral, local 3cc 2% lido, 21g 100 mm block needle with US; 133 mg exparel and 50mg bupiv in 20cc in increments; low pressure injection; needle tip visualized throughouit, Needle was inserted without pain or parasthesia in the conscious patient, Number of attempts1, Negative attempt at aspiration for blood, Medial and lateral spread of the anesthestic was observed, Periodic negative attempts at aspiration of blood were made as the local was injected, No pain or parathesia were elicited with injection of the anesthetic in the conscious patient, It was idetified that the correct anesthetic agent was administered to the correct site. Complications: None, The patient tolerated the procedure as expected.Normal [facility] HospitalALL CBC WITH AUTO DIFFon [id number] ABSOLUTE WEWN1CMNP HealthcareBasophils/100 WBC (Bld)0.5 %0.2 - 2.0 %NOMS [facility] Eosinophils/100 WBC (Bld)0.7 %Low0.9 - 7.0 %[facility] Medical CenterErythrocyte distribution width (RBC) [Ratio]13.3 %11.0 - 15.0 %NOM HealthcareHematocrit (Bld) [Volume fraction]41.2 %Low42.0 - 54.0 %[facility] Medical CenterHemoglobin (Bld) [Mass/Vol]13.7 g/dLLow14.0 - 18.0 g/dLCass Medical CenterIMMATURE GRANULOCYTES ABS AUTO0.01NOMS HealthcareImmature granulocytes/100 WBC (Bld)0.2 %0.0 - 0.5 %[facility] HealthcareInterpretation and review of laboratory resultsAbnormalNOSaint John's [facility]ree[facility] LYMPHOCYTES ABSOLUTE AUTO1.5NOMS [facility] HospitalLymphocytes/100 WBC (Bld)36.8 %20.5 - 60.0 %[facility] CenterH (RBC) [Entitic mass]30.1 pg25.9 - 34.0 pgMercy Hospital South, formerly [address] Anthony's Medical CenterHC (RBC) [Mass/Vol]33.3 g/dL29.9 - 35.2 g/dLMercy Hospital South, formerly St. Anthony's Medical CenterV (RBC) [Entitic vol]90.5 fL80.0 - 94.0 fLNOSaint John's Breech Regional Medical CenterMONOCYTES ABSOLUTE AUTO0.4NOMS HealthcareMonocytes/100 WBC (Bld)10.4 %1.7 - 12.0 %NOM HealthcareNEUTROPHILS ABSOLUTE AUTO2.1NOMS HealthcareNeutrophils/100 WBC (Bld)51.4 %43.0 - 75.0 %NOMKindred HospitalPlatelet mean volume (Bld) [Entitic vol]9.7 fL9.5 - 13.5 fLNOSaint John's Breech Regional Medical CenterTB EO #0NOMS HealthcareTB [id number] HealthcareTB RBC4.55LowNOMS HealthcareTEMPLETON DEVELOPMENTAL [facility] WBC4.1NOMS HealthcareCLINISYNCNOMS HealthcareXR Foot - left 3 Viewson 75-50-4009VLYA HealthcareImaging Result: XR left foot: Lisfranc fx with nondisplaced base fx's 3,4,5 metatarsals. Appear to be slightly comminutedNORichland CenterRadiology Study observation (narrative)NOMS HealthcareDEPAKENE/ VALPROIC ACIDon [id number] ug/ml Qcnehd92.0-100.0The Comment on above:Performed By: #### VALP #### Laboratory [address] [place], [place] [address] Dr. Madiha Mireles Noteson 20-32-9823Wbscpgoflyrqn Authentication Interface Message Text----- Thursday, September 23, 2021 at 1:00:26 PM ----- ----- Provider: [id number] Keila Rodriguez -- Clinic: [place] ----- [facility], Pt is ready for tx. Pt presents for examination. Pt is ID and non-verbal. Pt is aggressive and primary care coordinator was taken to the back room to keep pt away from others. Pt is edentulous and Dr. Bose examined the gums and did not see of feel any signs of infection. Advised to return for exams on as need basis. [facility]/Dr. Bose [place]. EXAM ----- Signed on Thursday, September 23, 2021 at 4:02:34 PM ----- ----- Provider: [id number] Azam Dinero DMD -- Clinic: [place] -----NormalThe [facility] Clinic SystemSurgical Pathologyon 25-30-0931Rjlzkkct Pathology(NOTE) [id number] [employer] [facility] ANATOMIC PATHOLOGY [address] [place] [address]. [place], [place] [address] SURGICAL PATHOLOGY CONSULTATION Patient Name: LEO RENA Tereso Med Rec: [id number] Path Number: [id number] Collected: 05/30/2018 Received: 05/31/2018 Reported: 06/03/2018 15:31 -- Diagnosis -- SKIN TISSUES, EXCISION (LEFT GROIN): - RUPTURED EPIDERMAL CYST WITH MARKED INFLAMMATORY REACTION. Jessi Rudd M.D. Electronically Signed Out [facility]/06/03/2018 Clinical Information Pre-op Diagnosis: CHRONIC LEFT INFECTED GROIN CYST Operative Findings: LEFT GROIN MASS Operation Performed: GROIN EXPLORATION Source of Specimen 1: LEFT GROIN MASS Gross Description RENA LEO, LEFT GROIN MASS Fragments of brown gonzáles skin and subcutaneous tissue with areas of granularity, 2.8 x 2.2 x 0.5 cm. in aggregate. Entirely. 1cs dw Microscopic Description Microscopic examination performed.Summa HealthComment on above: Performed By: #### PPPVS #### [employer] [facility] [place] [address] Soiled Linen Distributor: River Rudd MD Vital Signs Date TimeVital SignValuePerforming CnuemchtfHifajtnz45-50-3878 09:25-0400Body owdvhu470.3 cmMarc Dolce DPM FACFAS Work Phone: [phone])HuntForceSullivan County Memorial HospitalMoy UniverSaint John's Breech Regional Medical CenterVvugobanli09-63-9006 09:25-0400Body mass index (BMI) [Ratio]22.74 kg/m2Marc Dolce DPM FACFAS Work Phone: 1(132)HuntForceSullivan County Memorial HospitalSlate ScienceCass Medical CenterNmrwagttup76-50-7908 09:25-0400Body ikwfrh92.85 kgMarc Dolce DPM FACFAS Work Phone: 1(508)HuntForceSullivan County Memorial HospitalSlate ScienceCass Medical CenterDodllcrinu05-04-6525 09:25-0400Body uaiema614.3 cmMarc Dolce DPM FACFAS Work Phone: 1(674)HuntForceSullivan County Memorial HospitalSlate ScienceCass Medical CenterMgitqvgioe37-60-6542 09:25-0400Body mass index (BMI) [Ratio]22.74 kg/m2Marc Dolce DPM FACFAS Work Phone: 1(169)HuntForceThe Daily CallerSaint John's Breech Regional Medical CenterWugoruvzsn62-81-3068 09:25-0400Body sirsfs66.85 kgMarc Dolce DPM FACFAS Work Phone: 1(536)[employer]08-28-2025 09:12-0400Diastolic blood pmbmiozm63 mm[Hg]Dipak Ferrerett DO Work Phone: [facility]08-28-2025 09:12-0400 Heart rate71 /minChristopher Minor DO Work Phone: [facility]08-28-2025 09:12-0400 SaO2% (BldA) [Mass fraction]98 %Dipak Ferrerett DO Work Phone: [facility]08-28-2025 09:12-0400 Systolic blood wqffamst688 mm[Hg]Dipak Ferrerett DO Work Phone: 1(470)243-[address] [place], [place] 5013108-19-2025 10:52-0400 Body ouutyk090.3 cmMarc Dolce DPM FACFAS Work Phone: 1(329)[address] [place], [place] 4601108-19-2025 10:52-0400Body mass index (BMI) [Ratio]22.74 kg/m2Marc Dolce DPM FACFAS Work Phone: [phone])[address] [place], [place] 4601108-19-2025 10:52-0400Body .85 kgMarc Dolce DPM FACFAS Work Phone: [phone])[address] [place], [place] 4601108-04-2025 08:47-0400Body jryxow744.3 cmMarc Dolce DPM FACFAS Work Phone: [phone])[address] [place], [place] 46[address]108-04-2025 08:47-0400Body mass index (BMI) [Ratio]22.74 kg/m2Marc Dolce DPM FACFAS Work Phone: 1419)[address] [place], [place] 46[address]108-04-2025 08:47-0400Body sluggv49.85 kgMarc Dolce DPM FACFAS Work Phone: [phone])[address] [place], [place] 46[address]107-29-2025 11:12-0400Body .3 cmMarc Dolce DPM FACFAS Work Phone: [phone])[address] [place], [place] 46[address]107-29-2025 11:12-0400Body mass index (BMI) [Ratio]22.74 kg/m2Marc Dolce DPM FACFAS Work Phone: 1419)[address] [place], [place] 46[address]107-29-2025 11:12-0400Body fuidsc59.85 kgMarc Dolce DPM FACFAS Work Phone: 1419)[address] [place], [place] 46[address]107-22-2025 11:51-0400Body suwgjp105.3 cmMarc Dolce DPM FACFAS Work Phone: [phone])[address] [place], [place] 46[address]107-22-2025 11:51-0400Body mass index (BMI) [Ratio]22.74 kg/m2Marc Dolce DPM FACFAS Work Phone: [phone])[address] [place], [place] 46[address]107-22-2025 11:51-0400Body ioblwq26.85 kgMarc Dolce DPM FACFAS Work Phone: 1419)[address] [place], [place] 46[address]107-09-2025 14:11-0400Body ycmipy837.3 cmMarc Dolce DPM FACFAS Work Phone: 1(487)[address] [place], [place] 46[address]107-09-2025 14:11-0400Body mass index (BMI) [Ratio]22.74 kg/m2Marc Dolce DPM FACFAS Work Phone: 1(243)[address] [place], [place] 46[address]107-09-2025 14:11-0400Body egzrbv17.85 kgMarc Dolce DPM FACFAS Work Phone: 1(284)[address] [place], [place] 46[address]107-01-2025 15:06-0400Body qorpkn826.3 cmNicholas Brown DPM Work Phone: 1(099)4-[address] [place], [place] [address]Ocdxddchho42-83-1159 15:06-0400Body mass index (BMI) [Ratio]22.74 kg/s0Pmqfdgfd Brown DPM Work Phone: 1(096)9-[address] [place], [place] [address]Hhcscdtedx94-90-3646 15:06-0400Body .85 kgNicholas Brown DPM Work Phone: 1(499)0-6120[facility] Medical CenterDwtzrfjqbf60-03-7532 15:06-0400Respiratory rate16 /minNicholas Brown DPM Work Phone: 1(076)0-[address] [place], [place] [address]Wgpvgvcrsd80-83-7716 10:21-0500Body vnjaac965.3 cmSteven Rusher DPM Work Phone: [phone]87[facility] CenterFbqsacfwzr27-67-9934 10:21-0500Body mass index (BMI) [Ratio]22.74 kg/n6Fiyeae Rusher DPM Work Phone: 1(417)114-31[facility] Medical CenterZvdngyeopc46-98-9516 10:21-0500Body kypesd92.85 kgSteven Rusher DPM Work Phone: 1(900)[address]08-20-2024 11:12-0400Body dpelud354.3 cmSteven Rusher DPM Work Phone: [phone])[address]08-20-2024 11:12-0400Body mass index (BMI) [Ratio]22.74 kg/z2Gixtle Rusher DPM Work Phone: [phone])[phone] Medical CenterGhixisitgv15-71-9427 11:12-0400Body pbclek07.85 kgSteven Rusher DPM Work Phone: [facility] Healthcare Encounters Encounter DateEncounter TypeCare ProviderFacilityStart: 03-06-2025 End: 51-56-2234Epzhgg flowsheetMarc D Dolce DPM FACFAS Work Phone: noms [facility] Hospitaltart: 03-06-2025 End: 84-36-1586Gglxpz flowsheetMarc D Dolce DPM FACFAS Work Phone: [facility]2025 End: 11-03-6937Vxxrtj outpatient visit 15 minutesMarc D Dolce DPM FACFAS Work Phone: noms NMA PODComment on above:Lisfranc dislocation, left, initial encounter (Primary Dx); Dermatophytosis of nail; Pain in left toe(s); Pain in right toe(s)Start: 03-06-2025 End: 79-98-1599efnmpoarpnQOHP D DOLCENot AvailableStart: 01-29-2025 End: 75-12-6536oshjjlcfyjCKW [facility] Work Phone: Start: 01-29-2025 End: 26-58-0690Hbdaxez encounter procedureNicole Afsaneh [facility] Work Phone: Start: 01-20-2025 End: 34-06-1084Baqqwx flowsheetMarc D Dolce DPM FACFAS Work Phone: noms [facility] [place]intownStart: 01-20-2025 End: 48-71-5063Crbcff flowsheetMarc D Dolce DPM FACFAS Work Phone: noms [facility] [place]intownStart: 01-20-2025 End: 83-77-4485Ntygyou encounter procedureMarc D Dolce DPM FACFAS Work Phone: noms NMA PODComment on above:Lisfranc dislocation, left, initial encounter (Primary Dx); Left foot painStart: 01-20-2025 End: 19-42-0213wqlvtgymhyPVEP D DOLCENot AvailableStart: 01-19-2025 End: 87-24-9344oyrypjjripHQH [facility] Work Phone: Start: 01-19-2025 End: 05-20-5244Usaujul encounter procedureMalika Shelby [facility] Work Phone: Start: 01-08-2025 End: 42-29-5950jnwbtamnvmLVQTuscarawas Hospital Work Phone: Start: 01-08-2025 End: 61-11-0188Tlunmob encounter procedureChristopher Minor Mitchell [facility] Work Phone: Start: 12-30-2024 End: 62-52-0495Fipfsn flowsheetMarc D Dolce DPM FACFAS Work Phone: noms [facility] [place]ownStart: 12-30-2024 End: 77-56-9533Nqhutk flowsheetMarc D Dolce DPM FACFAS Work Phone: noms [facility] [place]wnStart: 12-30-2024 End: 67-54-7522Ajuwvt follow up visit related to original pxMarc D Dolce DPM FACFAS Work Phone: noms DEA PODComment on above:Left foot pain (Primary Dx); Lisfranc dislocation, left, initial encounterStart: 12-30-2024 End: 86-97-1637eupozslsgqCRTG D DOLCENot AvailableStart: 12-15-2024 End: 61-02-8206Yirwbk flowsheetMarc D Dolce DPM FACFAS Work Phone: [facility]oms [facility] CenterwnStart: 12-15-2024 End: 53-01-3600Sosekl flowsheetMarc D Dolce DPM FACFAS Work Phone: noms [facility] CenterwnStart: 12-15-2024 End: 82-84-8450yctbezgzptMBMS D DOLCENot AvailableStart: 12-15-2024 End: 67-61-0891Tlljxua encounter procedureMarc D Dolce DPM FACFAS Work Phone: NOMS NMA PODComment on above:Lisfranc dislocation, left, initial encounter (Primary Dx); Left foot painStart: 12-09-2024 End: 13-52-9297Zvfatp flowsheetMarc D Dolce DPM FACFAS Work Phone: noMS [facility] CenterwnStart: 12-09-2024 End: 77-16-1364Zzjtek flowsheetMarc D Dolce DPM FACFAS Work Phone: noms [facility] LevellandnStart: 12-09-2024 End: 61-35-5457Gsjgws follow up visit related to original pxMarc D Dolce DPM FACFAS Work Phone: noMS NMA PODComment on above:Lisfranc dislocation, left, initial encounter (Primary Dx)Start: 12-09-2024 End: 41-68-2267zdwdzpxfoaPTYW D DOLCENot AvailableStart: 12-02-2024 End: 86-37-0317Prutll flowsheetMarc D Dolce DPM FACFAS Work Phone: QHSJ ASC PODStart: 12-02-2024 End: 90-85-0195Eukdqz flowsheetMarc D Dolce DPM FACFAS Work Phone: NOKS [facility] PODStart: 12-02-2024 End: 44-44-9832sfexdesufsBRGM D DOLCENot AvailableStart: 12-02-2024 End: 75-76-3157Staylmd encounter procedureMarc D Dolce DPM FACFAS Work Phone: IIYU NMA PODComment on above:Lisfranc dislocation, left, initial encounter (Primary Dx); Left foot painStart: 11-25-2024 End: 13-61-0406pnaxgsqowjEujr D DolceFacility:FTMCStart: 11-21-2024 End: 81-54-9695Rdgkfqnud Result EncounterMarc D Dolce DPM FACFAS Work Phone: PCPZ External Department UnsolicitedStart: 11-21-2024 End: 86-52-9022Fyxlmevac Result EncounterMarc D Dolce DPM FACFAS Work Phone: GBSS External Department UnsolicitedStart: 11-19-2024 End: 90-29-9984Siuret outpatient visit 25 minutesMarc D Dolce DPM FACFAS Work Phone: TAWJ NMA PODComment on above:Lisfranc dislocation, left, initial encounter (Primary Dx); Left foot pain; Closed displaced fracture of second metatarsal bone of left foot, initial encounter; Closed displaced fracture of third metatarsal bone of left foot, initial encounter; Closed displaced fracture of fourth metatarsal bone of left foot, initial encounterStart: 11-19-2024 End: 76-86-5277bycgkdvdppGPFX D DOLCENot AvailableStart: 11-19-2024 End: 59-23-6314Sflejb flowsheetMarc D Dolce DPM FACFAS Work Phone: EFIU ASC PODStart: 11-19-2024 End: 78-88-1705Gywssu flowsheetMarc D Dolce DPM FACFAS Work Phone: noms [facility] PODStart: 11-11-2024 End: 43-48-8208rbshjosrwoNOFDLNBA Carson BROWNNot AvailableStart: 11-11-2024 End: 21-70-8954Pvwmie outpatient visit 25 minutesNiclatesha Dorman DPM Work Phone: noms [place] PODComment on above:Lisfranc dislocation, left, initial encounter (Primary Dx)Start: 11-11-2024 End: 26-27-7009Njfjlt flowsheetNiclatesha A Brown DPM Work Phone: noMS [facility] PODStart: 11-11-2024 End: 39-11-6587Jptmwt flowsheetNicholas A Brown DPM Work Phone: noms [facility] PODStart: 07-03-2024 End: 54-13-8842Bnhgbl flowsheetSteven A Rusher DPM Work Phone: noMS PODIATRYStart: 07-03-2024 End: 15-18-1973Rcpcvn flowsheetSteven A Rusher DPM Work Phone: noms PODIATRYStart: 07-03-2024 End: 82-27-4024Bhzrhij encounter procedureSteven A Rusher DPM Work Phone: noms PODIATRYComment on above:Dermatophytosis of nail (Primary Dx); Dystrophic nail; Pain around toenail, right foot; Pain around toenail, left footStart: 07-03-2024 End: 59-88-8680oqwrevjazcZBGIAJ A RUSHERNot AvailableStart: 01-01-2024 End: 28-68-8117Eqautf flowsheetSteven A Rusher DPM Work Phone: noms PODIATRYStart: 01-01-2024 End: 33-51-6605Ajrgjj flowsheetSteven A Rusher DPM Work Phone: noMS PODIATRYStart: 01-01-2024 End: 48-76-0716Letbawq encounter procedureSteven A Rusher DPM Work Phone: NOMS PODIATRYComment on above:Dermatophytosis of nail (Primary Dx); Dystrophic nail; Pain around toenail, right foot; Pain around toenail, left footStart: 07-30-2023 End: 42-60-6683Eogqvqz encounter procedureMurosie Talal Carolemini 253-8712Khvwda-AkrslSt. [facility] Hospital [facility] Start: 01-01-2023 End: 96-25-3041Adtysmy encounter procedureMuhamjannetd Talal Carolemini 401-0426Tytfor-ZlnrpSt. Charles Hospital [facility] Start: 55-15-5505uqsbqxufhxQHDesiree MOSS Facility:R4Mzpvd: 08-31-2022 End: 38-12-2934yxxsaqwhpfSO DANIEL A HERRINGFacility:H7Worpm: 24-48-5214Kyczrt encounterBogdbrayan Quinteros DDS Work Phone: [facility]HealthStart: 87-45-8747Lhcsjj encounterBoabeba Quinteros DDS Work Phone: [facility]HealthStart: 09-23-2021 End: 39-51-2430gghkdhbdouNUOQSOM PROVIDERFacility:METROHealthStart: 05-30-2018 End: 18-98-3463Donfhib encounter procedureGenesis Hospital Procedures DateProcedureProcedure DetailPerforming ClinicianStart: 55-30-4985Vhpwr foot complete minimum 3 viewsMarc D Dolce DPM FACFAS Work Phone: Start: 31-08-9612Zaxrk foot complete minimum 3 views Byron Brendan Dolce DPM FACFAS Work Phone: Start: 13-70-6824Xenzjkfpeo examination foot 2 views Byron Brendan Dolce DPM FACFAS Work Phone: Start: 71-37-3778KRX CBC WITH AUTO DIFFMarc D Dolce DPM FACFAS Work Phone: Start: 00-09-1122Pmqmc foot complete minimum 3 views Byron Wiley DPM FACFAS Work Phone: Start: 04-90-7248SFOHWXYQT PATIENTBETTIZEMIStart: 69-83-6233OXREXOIC PATHOLOGYBETTIZEMI Plan of Treatment DateCare ActivityDetailAuthorStart: 64-01-9276Guoqibwf (RZV) Vaccine (1 of 2) Shingles (RZV) Vaccine (1 of 2)[facility]roHealthStart: 07-03-2025 End: 63-00-8044Nozhpuj encounter klsbdducc63/20/2026 9:00 AM EST Procedure Visit [facility] P[facility] [address] [place] [address] Byron Wiley, DPM FACFAS [address] [place] [address] NOMS NMA PODStart: 03-06-2025 End: 11-13-3151Ipusuqp encounter wwzyyhgpx84/24/2025 9:10 AM EDT Procedure Visit [facility] [address] [facility] [place] [address] Byron Wiley, DPM FACFAS [address] [place] [address] ArrivedNOMS NMA PODComment on above:ArrivedStart: 02-11-2025 End: 39-28-7416Byegrhp encounter pxndzaqxw51/01/2025 8:50 AM EDT Procedure Visit [facility] POD [address] [place] [address] Byron Wiley, DPM FACFAS [address] [place] [address] NOMS NMA PODStart: 01-20-2025 End: 89-27-0981Fysszwt encounter procedureNOMS NMA PODComment on above:Arrived Start: 88-99-6018Qcolcrdye vaccinationInfluenza Vaccine (#1)[facility] Start: 01-05-2025 End: 03-51-7488Shpbyim encounter kxehpcijv54/25/2025 8:50 AM EDT Office Visit [facility] [address] [facility] [address] Byron iWley, DPM FACFAS [address] [place] [address] NOMS NMA PODStart: 12-31-2024 End: 32-81-1989Yfphwcn encounter procedureNOMS FH PODIATRYStart: 12-30-2024 End: 33-61-1355Myzmgfn encounter roxmjrrye14/19/2025 10:10 AM EDT Office Visit [facility] P[facility] [address] [place] [address] Byron Wiley, DPM FACFAS [address] [place] [address] ArrivedNOMS NMA PODComment on above:ArrivedStart: 12-15-2024 End: 02-01-8648Qdsynon encounter sbauvpmze60/04/2025 8:30 AM EDT Office Visit [facility] P[facility] [address] [place] [address] Byron Wiley, DPM FACFAS [address] [place] [address] NOMS NMA PODStart: 12-09-2024 End: 70-26-2075Dnvibuj encounter procedureNOMS NMA PODComment on above:Arrived Start: 11-19-2024 End: 34-95-2665Sjlbppr encounter abppgndzp64/09/2025 2:40 PM EDT Office Visit [facility] [address] [facility] [address] Byron Wiley, DPM FACFAS [address] [place] [address] ArrivedNOMS NMA PODComment on above:ArrivedStart: 11-11-2024 End: 36-51-6005Oduijqs encounter jicdquddu19/01/2025 3:00 PM EDT Office Visit [facility] [address] [place] [address] Shon Dorman, DPM [address] [address] NOMS [place] PODStart: 07-03-2024 End: 63-62-8164Tsedpdz encounter procedureNOMS PODIATRYComment on above: ArrivedStart: 91-77-8412Dguxbtyis vaccinationInfluenza Vaccine (#1)NOMS HealthcareStart: 01-01-2024 End: 82-47-3439Hdedfmz encounter tdxbbyblp81/20/2024 10:45 AM EDT Procedure Visit [facility] [address] [place] [address] Eagle Michelle, DPM [address] [place] [address] ArrivedNOMS PODIATRYComment on above:ArrivedStart: 02-07-2023 End: 60-40-7813Hbjfsya encounter etbxsixuj85/27/2023 Procedure Visit Dentistry Jose Dinero, DMD [address] [place] [address] [facility] DentistryStart: 45-50-3081Bdvavae vaccinationTetanus (Td or Tdap) BoosterMetroHealthStart: 58-78-6915Iohzc panel CholesterolMetroHealthStart: 80-27-4609Amweuvjgu vaccinationInfluenza Vaccine (#1)[facility]HealthStart: 10-86-8282PCTKI-19 Vaccine (4 - Booster for Pfizer series) COVID-19 Vaccine (4 - Booster for Pfizer series)[facility]HealthStart: 2005 Hepatitis C screeningHepatitis C AntibodyMetroHealthStart: 64-73-7312BKR screeningHIV TestMetCleveland Clinic Children's Hospital for [facility] Immunizations Immunization DateImmunizationNotesCare JzkuqyvbUvevaekp18-77-8628aryenayst virus vaccine, unspecified formulationMardigna Rosie DPM FACFAS Work Phone: NOSaint [facility] CenterBahugsysbc77-41-3234wbjowqffh virus vaccine, unspecified formulationNiclouissharonda Dorman DPM Work Phone: NOSaint [facility] Medical CenterZtntzcmngt06-93-0403dpjgcui toxoid, reduced diphtheria toxoid, and acellular pertussis vaccine, adsorbedMuhammad Sarmini 167-6081Cyafyr-DkaurSt. [facility] Hospital [facility] Vbexlt18-53-8881 influenza virus vaccine, unspecified formulationMuhammad Sarmini 841-6967Bxkvfa-HzvtqSt. [facility] Swjxir16-15-9787 influenza virus vaccine, unspecified formulationMuhammad Sarmini 526-3137Rmkssn-GasxcSt. [facility] Hospital [facility] Lxekuo28-40-0158 SARS-CoV-2 (COVID-19) mRNAMUL.ORD!m30793Kigvazhx Sarmini 566-9068Inxsoj-VkxelSt. Charles Hospital Digestive HealthComment on above:Result Comment: 2022-12-06: XLSKAO42-87-8368chqwyzanw, injectable, quadrivalent, preservative freeBogdan Butriy DDS Work Phone: [phone]fDvtmho80-18-5102TOYM-GhC-7 (COVID-19) mRNA BNT- 162b2 vaxMuhammad Sarmini 648-7725Mujacd-XuwbjSt. Charles Hospital Digestive HealthComment on above:Result Comment: 2022-12-06: QAG419-71-9020jgoysyajp virus vaccine, unspecified formulationBogdan Butriy DDS Work Phone: [phone]-KzdihSt. Charles Hospital [facility] Rhknms02-69-8497 Pfizer (12+ yrs) SARS-COV-2 (COVID-19) vaccine, mRNA, spike protein, LNP, pres. free, 30 mcg/0.3mL dose (QPT=069)Uday Butriy DDS Work Phone: MedivanceroHealthComment on above:Result Comment: 2022-12-06: VPBER93-58-7262Tzqofx (12+ yrs) SARS-COV-2 (COVID-19) vaccine, mRNA, spike protein, LNP, pres. free, 30 mcg/0.3mL dose (IWB=796)Uday Butriy DDS Work Phone: MetroHealthComment on above:Result Comment: 2022-12-06: BSLXT77-06-3754uwuskbwtk virus vaccine, unspecified formulation Keane Sarmini 302-5677Bcvgen-IkrvmCleveland Clinic [facility]'S [facility] For Rehabilitation10-07-2020 influenza, injectable, quadrivalent, preservative freeBogdan Butriy DDS Work Phone: [phone]zIfvnub49-53-5565ovgzpklub virus vaccine, unspecified formulationMuhammad Sarmini 405-9541Rpntps-JjfshSt. [facility] Hospital [facility] Ooothc58-48-3826 influenza, injectable, quadrivalent, contains preservativeBogdan Butriy DDS Work Phone: [phone]kIwwtwv12-49-3977hynweqpvg virus vaccine, unspecified formulationMuhammad Sarmini 128-5893Kcjfud-VdnvzSt. [facility] Wgfvrs86-07-0230 influenza, injectable, quadrivalent, preservative freeBogdan Butriy DDS Work Phone: [phone]) [phone]bLrzbrq37-47-9652dcsjtbxlc virus vaccine, unspecified formulationMuhammad Sarmini 397-9515Xgceqf-SqaduSt. [facility] Hospital [facility] Resauj65-00-0372 influenza, injectable, quadrivalent, contains preservativeBogdan Butriy DDS Work Phone: [phone]dLrzwlh59-10-2381jmrtsgibr virus vaccine, unspecified formulationMuhammad Sarmini 307-8666Tthymf-MrdsnSt. [facility] Shmuqu22-89-8714 influenza, injectable, quadrivalent, preservative freeBogdan Butriy DDS Work Phone: [phone]lPymuns14-39-3224rgawqqn toxoid, reduced diphtheria toxoid, and acellular pertussis vaccine, adsorbedBogdan Butriy DDS Work Phone: [phone]) [phone]jXrrpmn38-81-0755iyuja kfqttgnmf-O7O1-42, preservative-free, injectableBogdan Butriy DDS Work Phone: [phone]gNzotmj51-80-2870itegjxete virus vaccine, whole virusBogdan Butriy DDS Work Phone: [phone]wGmvufu23-24-9515grsfetabe, wholeMuhammad Sarmini 592-8973Dixmqp-SqwwoSt. [facility] Hospital [facility] Ahkfis26-39-9453 influenza virus vaccine, unspecified formulationMuhammad Sarmini 791-8667Pobyth-GdxabCleveland Clinic Children'S Hospital For Rehabilitation10-31-2006 influenza, seasonal, injectableBogdan Butriy DDS Work Phone: [phone]) [phone]hRwluhk97-09-8624ST(adult) unspecified formulation; Translations: [Td(adult) unspecified formulation]Uday Butriy DDS Work Phone: [phone]vPoilgf47-54-1973wmminuu, mumps and rubella virus vaccineBogdan Butriy DDS Work Phone: [phone]zCzqjqs86-85-8617pasmzhbwt B vaccine, pediatric or pediatric/adolescent dosageBogdan Butriy DDS Work Phone: [phone]aHgycyb92-78-5278wrqunbavj B vaccine, pediatric or pediatric/adolescent dosageBogdan Butriy DDS Work Phone: [phone]yNouesw18-06-3854fzixuemla B vaccine, pediatric or pediatric/adolescent dosageBogdan Butriy DDS Work Phone: [phone]yMuruil91-98-6359pcexjpppbb, tetanus toxoids and acellular pertussis vaccine, unspecified formulationBogdan Butriy DDS Work Phone: [phone]kLnyvvo11-09-3048SNgS, unspecified formulation Keane Sarmini 784-2916Bajyxk-NbdzmCleveland Clinic Children'S Hospital For Rehabilitation09-16-1993 poliovirus vaccine, inactivatedBogdan Butriy DDS Work Phone: [phone]) [phone]dSglzdd03-71-7284fbbebdibon vaccine, unspecified formulationMuhammad Sarmini 221-2997Dbgrkn-KwlloCleveland Clinic [facility]'S Hospital For Rehabilitation11-20-1990 diphtheria, tetanus toxoids and pertussis vaccineBogdan Butriy DDS Work Phone: [phone]bByvyyr93-34-3505pritdtzazle influenzae type b vaccine, conjugate unspecified formulationBogdan Butriy DDS Work Phone: [phone]rCccevo90-80-0882Xkl, unspecified formulation Keane Sarmini 207-5136Xhuoro-NatbbCleveland Clinic Children'S Hospital For Rehabilitation11-20-1990 poliovirus vaccine, inactivatedBogdan Butriy DDS Work Phone: [phone]xCpekxr74-44-3231hkuxnjuaqs vaccine, unspecified formulationMuhammad Sarmini 663-8170Pjredj-ObtcjCleveland Clinic Children'S Hospital For Rehabilitation09-07-1989 diphtheria, tetanus toxoids and pertussis vaccineBogdan Butriy DDS Work Phone: YkfhoTndeay74-494978CosdgMixlhs82-83-0832nqsdfmu, mumps and rubella virus vaccineBogdan Butriy DDS Work Phone: CmlbdHheudt04-727986MmiwmYynskl50-54-5203fazrkvmjez vaccine, inactivated Uday Butriy DDS Work Phone: BpgseTnwltm74-182077KjlajFhtqpn77-09-9958zzencosmei vaccine, unspecified formulationMuhammad Sarmini 817-1976Szpuzs-ShdppCleveland Clinic Children'S Hospital For Rehabilitation08-18-1988 diphtheria, tetanus toxoids and pertussis vaccineBogdan Butriy DDS Work Phone: [phone]nOruroj40-69-2719ncwzmmwljzr influenzae type b vaccine, conjugate unspecified formulationBogdan Berylriy DDS Work Phone: [phone]jWzdymr85-10-3045Dns, unspecified formulation Keane Carolemini 652-9659Nsgcrs-VwvasSt. [facility] Hospital [facility] Mlgbyt05-46-7978 poliovirus vaccine, inactivatedBogdbrayan Cordobariy DDS Work Phone: [phone]gUcvcoi72-44-6154kytexwlbvc vaccine, unspecified formulationMuhammad Sarmini 686-6569Atgayo-BlqqaSt. Charles Hospital [facility] Payers DatePayer CategoryPayerPolicy [id number] 2008Medicare [id number] -BLUE CROSS TRADITIONAL ANTHEM /BLUE CROSS TRADITIONAL xxx xxx [id number] [phone]-Present [address] [place] [address] [id number] [id number] [id number] 2.16840.1.254937.3.57[id number] 2.16840.1.712914.3.579.[id number] 2.16840.1.380282.3.57[id number] 2.16840.1.838488.3.57[id number] 2.16.840.1.789348.3.579.2.001962-85-8024Gmeusuo08749090 2.16.840.1.549713.3.57[id number] 2.16.840.1.283497.3.57[id number] 2.16.840.1.634292.3.579.2.960485-15-5302Axjhefv08567093 2.16.840.1.267929.3.579.2.274369-70-2440Jiroill36251888 2.0.1.582368.3.579.2.630168-77-7381Tlvxehp66048499 2.16840.1.599510.3.579.2.068060-84-6786Gvwkicb82267769 2.0.1.659058.3.57[id number] 2.0.1.338572.3.57[id number] 2.0.1.872154.3.579.[id number] 2.0.1.666000.3.57[id number] 2.0.1.568335.3.579.2.1259 [id number] 1960Medicare [id number] 2.840.1.804748.3.579.2.44398-62-2406 [id number] 2.16840.1.053676.3.5[id number] Social History DateTypeDetailFacilityTobacco smoking status NHISTobacco smoking consumption unknownMetroHealthStart: 66-14-3278Hnw Assigned At BirthNot on fileMetBluffton Hospital Tobacco smoking statusNo Smoking Status EnteredSt. Charles Hospital [facility] Start: 06-12-2023 End: 03-37-9474Msy Assigned At [facility] Hospitaltart: 85-04-9037Qximqrm smoking status NHISNever smoked tobaccoNOMS HealthcareStart: 06-12-2023 End: 85-12-1535Zoeosqfix beverage intakeLifetime non-drinker (finding)[facility] HealthcareStart: 06-12-2023 End: 54-10-7404Amsjjgm of Social functionNOMS HealthcareStart: 01-94-1421Tczdwdr CommentCaffeine intake: noneNOMS HealthcareSexMale (finding)[facility] Hospitaltart: 13-00-6110Aar Assigned At [facility] Medical Centertart: 76-36-6166FhyPshhZRMP Healthcare Functional Status TeatRupqkqnyezBuixbiLjupxrnn00-46-4917Czuutwopxk StatusN/[facility] Ygifiz87-68-8743Xqgdbuunxc StatusN/[facility] Clinical Notes 01-01-2023 to 03-06-2025 Note Date & QngnIfpxSlcbvcly67-95-8150 History of Present illness Narrative* Byron Wiley DPM FACFAS - 03/06/2025 9:10 AM EDT Images from the original note were not included. Patient: Rena Bailey : 1985 PCP: Reji Moss MD [...] with subungual debris and painful to palpation 97651 on the right 26089 on the left VASC: DP /PT were palpable bilateral. Capillary refill time < 3 seconds Digits 1-5 bilateral NEURO: Artesia Kayy 5.07 monofilament was intact B/L. Vibratory [...] through 10 PATRICK Majano documented in this encounterCass Medical CenterNxovvksoit73-88-5864 History of Present illness Narrative* PATRICK Majano - 01/20/2025 9:30 AM EDT Images from the original note were not included. Patient: Rena Bailey : 1985 PCP: Reji Moss MD SUBJECTIVE This is a 39 y.o. male that presents today The patient is here status post ORIF Lisfranc's fracturedislocation procedure. Postop week 9. They deny fevers, chills, nausea, vomiting, calf pain and shortness of breath. Pain level is being managed with ice elevation and pain medication. They have beenrelatively compliant with her postoperative care. Patient is nonverbal he is here today with a caregiver Allergies: No Known Allergies Past Medical History: [...] skin turgor noted. Negative openings in skin VASC: DP /PT were palpable bilateral. Capillary refill time < 3 seconds Digits 1-5 bilateral NEURO: [place] Kayy 5.07 monofilament was intact B/L. Vibratory sensation was intact B/L Musculoskeletal: Muscle strength was +5 over 5 all intrinsic and extrinsic muscles tested. NegativeHomans test noted Surgical site evaluation: The incision site is healing well without signs infection. Minimal swelling noted. Consistent with the patient's level of surgery consistent with time frame postoperatively.Sutures remain intact without signs of dehiscence. Three views were taken today AP/MO/LAT foot: trabeculation noted across the fracture site Lisfranc's joint in good position and alignment fixation intact left ASSESSMENT 1. Lisfranc dislocation, left, initial encounter 2. Left foot pain PLAN Educated the caregivers as well as the patient he was nonverbal on the x-ray findings. He may startweight-bearing returned to normal activities to tolerance follow up with me p.r.n. his fracture dislocation is healed. PATRICK Majano documented in this encounterCass Medical [id number] Evaluation note* Diagnosis Onset Date Resolution Status Admit Date Epilepsy acuteAugust 2024 9:02amNonverbalacuteAugust 2024 9:02amPsychiatric disorderacuteAugust 2024 9:02am [facility] Work Phone: [phone] 131-273208-19-2025 History of Present illness Narrative* PATRICK Majano - 12/30/2024 10:10 AM EDT Patient: Rena Bailey : 1985 PCP: Reji Moss MD SUBJECTIVE This is a 39 y.o. male that presents today The patient is here status post ORIF Lisfranc's fracturedislocation procedure. Postop week 5. They deny fevers, chills, nausea, vomiting, calf pain and shortness of breath. Pain level is being managed with ice elevation and pain medication. They have beenrelatively compliant with her postoperative care. Patient is nonverbal he is here today with a caregiver and his brother who is his guardian he has developed a small superficial abrasion to the posterior aspect of the heel secondary to noncompliance. He is mentally challenged here today with his brother who was present during examination treatment Allergies: No Known Allergies Past Medical History: [...] skin turgor noted. Negative openings in skin VASC: DP /PT were palpable bilateral. Capillary refill time < 3 seconds Digits 1-5 bilateral NEURO: Artesia Kayy 5.07 monofilament was intact B/L. Vibratory sensation was intact B/L Musculoskeletal: Muscle strength was +5 over 5 all intrinsic and extrinsic muscles tested. NegativeHomans test noted Surgical site evaluation: The incision site is healing well without signs infection. Minimal swelling noted. Consistent with the patient's level of surgery consistent with time frame postoperatively.Sutures remain intact without signs of dehiscence. Superficial ulceration posterior aspect of the left heel. ASSESSMENT 1. Left foot pain 2. Lisfranc dislocation, left, initial encounter PLAN Patient is doing well. He was noncompliant secondary to her mentally challenged condition. I recommended nursing apply small amount of Betadine daily to the heel abrasion area cover with a 4x4s for Band-Aid continue offload the area with the use of the surgical boot that he currently has follow up with me in 2 weeks for x-ray PATRICK Majano documented in this encounterCass Medical [id number] History of Present illness Narrative* PATRICK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 section [facility] Discharge instructions No data available for this section [facility] Progress note No data available for this section [facility] Reason for referral (narrative)No reason for referral information availableUniversity [facility]als [facility] Work Phone: Summary Purpose Family History No Family History Records FoundNo Family History Records FoundNo Family History Records Found No data available for this section No Family History Records FoundNo Family History Records Found Advance Directives No Advanced Directives Records Found Advance Directive Response Recorded Date/ Time Advance Directives No November 10 10:34am Chief Complaint and Reason for Visit Chief Complaint Admit Date New Onset Seizures January 08, 2025 9: 02am Routine EEG per January 19, 2025 9:10am Reason for Visit Admit Date Epilepsy January 08, 2025 9: 02am Nonverbal January 08, 2025 9: 02am Psychiatric disorder January 08, 2025 9 :02am Chief Complaint Admit Date New Onset Seizures January 08, 2025 9: 02am Chief Complaint Admit Date New Onset Seizures January 08, 2025 9: 02am Routine EEG per January 19, 2025 9:10am routine eeg second attempt January 8:20am Additional Source Comments (unrecognized sect ion and content) No Status Records FoundNo Status Records FoundNo Status Records FoundNo Status Records FoundNo Status Records Found INFORMATION SOURCE (unrecogn ized section and content) DATE CREATED AUTHOR 06/13/2018 [facility] DATE CREATED AUTHOR AUTHOR'S ORGANIZ ATION 09/29/2021 [facility] DATE CREATED AUTHOR AUTHOR'S ORGANIZ ATION 10/20/2022 The DATE CREATED AUTHOR AUTHOR'S ORGANIZ ATION 12/11/2024 [facility] DATE CREATED AUTHOR AUTHOR'S ORGANIZ ATION 03/08/2025 [facility] EPIC Care Teams (unrecognized sec tion and content) Team MemberRelationshipSpecialtyStart DateEnd Date Uday Quinteros S 08/15/10 Rigo Kevin, [address] [address] 08/15/10 Francisco Del Rio, [address] [address] RkavjyalCtfttvdhh71/6/20Team MemberRelationshipSpecialtyStart DateEnd Date Uday Quinteros [facility] 08/15/10 Rigo Kevin, [address] [address] 08/15/10 Francisco Del Rio, [address] [address] OrocasqlAlhuqzcfm51/6/20Team MemberRelationshipSpecialtyStart DateEnd Date Reji Moss MD [facility] [address] [place] [address] PCP - GeneralFamily Medicine01/01/24Team MemberRelationshipSpecialtyStart DateEnd Date Reji Moss MD [address] [place] [address] PCP - GeneralFamily Medicine01/01/24Team MemberRelationshipSpecialtyStart DateEnd Date Reji Moss MD [address] [place] [address] PCP - GeneralFamily Medicine01/01/24Team MemberRelationshipSpecialtyStart DateEnd Date Reji Moss MD [address] [place] [address] PCP - GeneralFamily Medicine01/01/24Team MemberRelationshipSpecialtyStart DateEnd Date Reji Moss MD [address] [place] [address] PCP - GeneralFamily Medicine01/01/24Team MemberRelationshipSpecialtyStart DateEnd Date Reji Moss MD [address] [place] [address] PCP - GeneralFamily Medicine01/01/24Team MemberRelationshipSpecialtyStart DateEnd Date Reji Moss MD [address] [place] [address] PCP - GeneralFamily Medicine01/01/24Team MemberRelationshipSpecialtyStart DateEnd Date Reji Moss MD [address] [place] [address] PCP - GeneralFamily Medicine01/01/24Team MemberRelationshipSpecialtyStart DateEnd Date Reji Moss MD [address] [place] [address] PCP - GeneralFamily Medicine01/01/24Team MemberRelationshipSpecialtyStart DateEnd Date Reji Moss MD [address] [place] [address] PCP - [facility] Medicine01/01/24Team MemberRelationshipSpecialtyStart DateEnd Date Reji Moss MD [address] [place] [address] PCP - [facility]01/01/24 Team Status: Active Member Role Status Dates NON STAFF Primary Care Provider Active Team Status: Inactive Member Role Status Dates DO Abimael Hernández Provider Active Start: January 08, 2025 End: January 08, 2025NON STAFFPrimary Care ProviderActiveStart: January 08, 2025 End: January 08, 2025 Team Status: Inactive Member Role Status Dates NON STAFF Primary Care Provider Active Start: January 19, 2025 End: January 19, 2025Nicole Tam , DOAttending ProviderActiveStart: January 19, 2025 End: January 19, 2025 Team Status: Inactive Member Role Status Dates NON STAFF Primary Care Provider Active Start: January 29, 2025 End: January 29, 2025Nicole Tam , DOAttending ProviderActiveStart: January 29, 2025 End: January 29, 2025 Reason for Visit (unrecogniz ed section and content) ReasonCommentsNail careDexter Carson Bailey is a 38yo Male patient presents for Nail care. Pt is a resident at [facility]. Severe autism.Brother Stephy and caregiver MarlenatanyReasonCommentsToenail CareEstablished pt presents today for nail care. Pt is resident at [facility]. Brother stephy and caregiver rolando are with him today.ReasonCommentsFoot/ankle FracturePoss fxReason CommentsFoot/ankle FractureLT foot fractureReasonCommentsFoot/ankle Post-op1st post opReasonCommentsFoot/ankle Post-opWeek 2 post opReasonCommentsFoot/ankle Post-opWK 4 post opReasonCommentsFoot Wound CheckLT foot heel woundReason CommentsFoot/ankle Post-opWK 9 post opReasonCommentsToenail CareNon DM nail care Goals (unrecognized section and content) Goals may be documented in a n alternate section FOR RECORDS PERTAINING TO PATIENTS WHO ARE [...] BE BASED ON THE PRIMARY CLINICAL RECORDS. [employer] [facility]. provides no warranty or guarantee of the accuracy or completeness of information in this document.
--- OUTSIDE RECORDS SUMMARY | 2025-03-20 19:54 | XMS_ITS | Encounter Summary ---
Author Organization [facility] Address [address] [place] [address] Care Team Providers Care Integration Director Name Role Phone Reji Platt MD Primary Care Provider Encounter Details DateTypeDepartmentCare Team (Latest Contact Info)Bhomlhojzjm83/24/2025amboo flowsheet [facility] [address] [place] [address] Byron Velez, DPM FACFAS [address] [place] [address] Social History Tobacco UseTypesPacks/DayYears UsedDateSmoking Tobacco: NeverAlcohol UseStandard Drinks/WeekCommentsNever0 (1 standard drink = 0.6 oz pure alcohol)Caffeine intake: noneSex and Gender InformationValueDate RecordedSex Assigned at BirthNot on fileLegal MykYgrx4807/26/2022 8:24 PM EDTGender IdentityNot on fileSexual OrientationNot on filedocumented as of this encounter Plan of Treatment DateTypeDepartmentCare Team (Latest Contact Info)Ytcwjttuudm54/20/2026 9:00 AM ESTProcedure Visit [facility] [address] [place] [address] Byrno Velez, DPM FACFAS [address] [place] [address] documented as of this encounter Visit Diagnoses Not on filedocumented in this encounter Care Teams Team MemberRelationshipSpecialtyStart DateEnd Date Reji Platt MD [facility] [address] [place] [address] PCP - GeneralFamily Medicine01/01/24documented as of this encounter
--- OUTSIDE RECORDS SUMMARY | 2025-03-20 19:54 | XMS_ITS | Clinical Summary ---
Author Organization [facility] Address [address] [place] [address] Care Team Providers Care Nailing Machine Operator Name Role Phone Reji Platt MD Primary Care Provider Allergies No known active allergies Medications MedicationSigDispense QuantityRefillsLast FilledStart DateEnd DateStatus buPROPion (Wellbutrin) 100 MG tablet 06/06/2023ctive cloNIDine (Catapres) 0.2 MG tablet 1 (one) time each day at the same timeActive bisacodyl (Dulcolax) 10 MG suppository Insert 10 mg into the rectumActive dicyclomine (Bentyl) 10 MG capsule TAKE ONE CAPSULE BY MOUTH FOUR TIMES A DAY HQKFAK4701/19/2023ctive guaiFENesin (Mucinex) 600 MG 12 hr tablet Take 1,200 mg by mouthActive haloperidol (Haldol) 20 MG tablet 06/06/2023ctive Linzess 290 MCG capsule Take 290 mcg by mouth in the morning.05/29/2023ctive loratadine (Claritin) 10 MG tablet TAKE ONE TABLET BY MOUTH ONCE DAILY CLARITINActive metoprolol tartrate (Lopressor) 100 MG tablet Take 100 mg by mouth in the morning and 100 mg before bedtime.Active montelukast (Singulair) 10 MG tablet Take 10 mg by mouth at bedtimeActive naltrexone (Depade) 50 MG tablet 1 (one) time each day at the same timeActive omeprazole (PriLOSEC) [address] capsule Take 40 mg by mouth in the morning.Active polyethylene glycol, PEG, 3350 (Glycolax) 17 GM/SCOOP powder TAKE 17 GRAMS BY MOUTH ONCE DAILY IF NO BOWEL MOVEMENT IN 4 DAYS NEEDED 2023ctive prochlorperazine (Compazine) 10 MG tablet 01/24/2024Active QUEtiapine (SEROquel) 400 MG tablet 4Active Vyvanse 70 MG capsule Take 70 mg by mouth in the morning.Active Mintox Plus 200-200-25 MG chewable tablet CHEW 1 TABLET BY MOUTH 4 TIMES DAILY4Active acetaminophen (Tylenol) 325 MG tablet every 4 (four) hoursActive sennosides (Senokot) 8.6 MG tablet 1 (one) time each day at the same timeActive ondansetron (Zofran) 4 MG tablet every 12 (twelve) hoursActive guanFACINE (Tenex) 2 MG tablet Take by mouthActive mirtazapine (Remeron) 15 MG tablet Take 15 mg by mouth at bedtimeActive diazePAM (Valium) 10 MG tablet Indications:Lisfranc dislocation, left, initial encounterTake 1 tablet (10 mg) by mouth every 6 (six) hours if needed for sedation for up to 2 days 2 tablet 5Active Valium 10 MG tablet Indications:Lisfranc dislocation, left, initial encounterTake 1 tablet (10 mg) by mouth 1 (one) time if needed for sedation (take 1 pill 30 minutes prior toto his office visit for suture removal) for up to 1 dose 1 tablet 5Active Active Problems No known active problems Encounters DateTypeDepartmentCare UjjsVxbigbvshij59/24/2025 9:10 AM EDTProcedure Visit [facility] [address] [place] [address] Byron Velez, DPM FACFAS Lisfranc dislocation, left, initial encounter (Primary Dx); Dermatophytosis of nail; Pain in left toe(s); Pain in right toe(s)03/06/2025amboo flowsheet [facility] [address] [place] [address] Byron Velez, DPM FACFAS 02/11/2025Telephone [facility] [address] [place] [phone] Byron Velez, DPStephen FACFAS 01/22/2025bstract [facility] [address] [place] [address] Byron Velez, DPM FACFAS 01/20/2025 9:30 AM EDTAncillary Procedure [facility] [address] [place] [address] 01/20/2025 9:30 AM EDTOffice Visit [facility] [address] [place] [address] Byron Velez, DPM FACFAS Lisfranc dislocation, left, initial encounter (Primary Dx); Left foot pain01/20/2025amboo flowsheet [facility] [address] [place] [address] Byron Velez, DPM FACFAS 01/09/2025Telephone [facility] [address] [place] [address] Byron Velez, DPM FACFAS 12/31/2024bstract [facility] [address] [place] [address] Byron Velez, DPM FACFAS 12/30/2024 10:10 AM EDTOffice Visit [facility] [address] [address] Byron Velez, DPM FACFAS Left foot pain (Primary Dx); Lisfranc dislocation, left, initial aqbrhqkiz72/19/2025amboo flowsheet [facility] [address] [place] [address] Byron Velez, DPM FACFAS from Last 3 Months Social History Tobacco UseTypesPacks/DayYears UsedDateSmoking Tobacco: Never Tobacco Cessation:Counseling Given: Yes Alcohol UseStandard Drinks/WeekCommentsNever0 (1 standard drink = 0.6 oz pure alcohol)Caffeine intake: noneSex and Gender InformationValueDate RecordedSex Assigned at BirthNot on fileLegal ZtoLoei0507/26/2022 8:24 PM EDTGender Identity Not on fileSexual OrientationNot on file Last Filed Vital Signs Vital SignReadingTime TakenCommentsBlood Pressure--Pulse--Temperature-- Respiratory [id number] 3:06 PM EDTOxygen Saturation--Inhaled Oxygen Concentration--Htmjmw21.9 kg (154 lb)03/06/2025 9:25 AM OYXZrtmnb079.3 cm (5' 9 )03/06/2025 9:25 AM EDTBody Mass Index22.7403/06/2025 9:25 AM EDT Plan of Treatment DateTypeDepartmentCare Team (Latest Contact Info)Fgfbculwaqn46/20/2026 9:00 AM ESTProcedure Visit [facility] [address] [place] [address] Byron Velez, DPM FACFAS [address] [place] [address] Health MaintenanceDue DateLast DoneCommentsCOVID-19 Vaccine ( season) , 06/15/2020, 05/25/2020Influenza VaccineCompleted 03/04/2025, 02/28/2024, 05/08/2023, Additional history existsPneumococcal Vaccine: Pediatrics (0 to 5 Years) and At-Risk Patients (6 to 64 Years)Aged Out No longer eligible based on patient's age to complete this topic Procedures Procedure NamePriorityDate/TimeAssociated DiagnosisCommentsXR FOOT 3+ VIEWS LEFT Xaadwpm0601/20/2025 9:25 AM EDT Left foot pain Lisfranc dislocation, left, initial encounter from Last 3 Months Results * XR foot 3+ views left (01/20/2025 9:25 AM EDT)Anatomical RegionLaterality ModalityLower Extremities, FootLeftRadiographic ImagingSpecimen (Source) Anatomical Location / LateralityCollection Method / VolumeCollection Time Received Time Narrative 01/20/2025 10:45 PM EDT Imaging Result: Three views were taken today AP/MO/LAT foot: ?? trabeculation noted across the fracture site Lisfranc's joint in good position and alignment fixation intact left Authorizing ProviderResult TypeResult StatusMarc D Dolce DPM FACFASIMG XR PROCEDURESFinal Result from Last 3 Months Insurance [address] [place] [address] Care Teams Team MemberRelationshipSpecialtyStart DateEnd Reji Platt MD [facility] [address] [place] [address] PCP - GeneralFamily Medicine01/01/24
[2025-03-20 20:10] LABS: INR 1.01; Partial Thromboplastin Time 21.9 sec (22.3-36.2); Prothrombin Time 10.7 sec (9.0-11.6)
[2025-03-20 20:13] LABS: Alanine Aminotransferase 25 U/L (16-63); Albumin Globulin Ratio 0.9; Albumin Level 4.1 g/dL (3.4-5.0); Alkaline Phosphatase 159 U/L (46-116); Anion Gap 15.6; Aspartate Amino Transferase 31 U/L (15-37); Blood Urea Nitrogen 22.0 mg/dL (7.0-18.0); Calcium 9.7 mg/dL (8.5-10.1); Carbon Dioxide 29.1 mmol/L (21.0-32.0); Chloride 102 mmol/L (98-107); Estimated GFR (African America >60 (>=60 mL/min/1.73m^2); Estimated GFR (Non-African Ame 51 (>=60 mL/min/1.73m^2); Globulin 4.6 g/dL; Glucose 120 mg/dL (74-106); Potassium 4.7 mmol/L (3.5-5.1); Sodium 142 mmol/L (136-145); Total Protein 8.7 g/dL (6.4-8.2)
[2025-03-20] MEDS: PROMETHAZINE HCL 12.5 MG in 0.9 % SODIUM CHLORIDE 50 ML 202 MG IV (21:15)
[2025-03-20 21:39] VITALS: BP 134/78; PULSE 97; TEMP 36.4; O2SAT 99
== END 2025-03-20 21:52 | disposition home or self-care (01) ==
PROVIDERS: Student in an Organized Health Care Education/Training Program; Emergency Provider Internal Medicine; PCP Family Medicine
DX: K52.9 Noninfective gastroenteritis and colitis, unspecified (principal); Z87.11 Personal history of peptic ulcer disease; F72 Severe intellectual disabilities; F84.0 Autistic disorder; K44.9 Diaphragmatic hernia without obstruction or gangrene; Z79.899 Other long term (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
CPT/HCPCS: 36415; 71045; 80053; 85025; 85610; 85730; 96361; 96365; 96372; 96375; 99285; J1200; J2250; J2550

== ENCOUNTER 2025-04-07 06:35 | Outpatient (OUT) | payer MEDICARE, MEDICAID, SELFPAY ==
--- OUTSIDE RECORDS SUMMARY | 2025-04-07 06:37 | XMS_ITS | CCD ---
Author Organization [facility] Care Team Providers Care Pressure Tester Operator Name Role Phone JANETHDUNGENRICO LOAN I Admitting Unavailable LOAN ETIENNE I Attending Unavailable REJI MOSS Primary Care Unavailable PROVIDER, UNKNOWN Attending Unavailable PROVIDER, UNKNOWN Admitting Unavailable Aldair TIAN, Uday S. Unavailable Riog Kevin DDS Unavailable Eliane TIAN, Francisco Unavailable Aldari TIAN, Uday S. Unavailable Rigo Kevin DDS Unavailable Eliane TIAN, Francisco Unavailable ISA, DR REJI Byrd Admitting Unavailable MOSS, DR REJI Byrd Attending Unavailable MOSS, DR REJI Byrd Consulting Unavailable MOSS, DR REJI Byrd Primary Care Unavailable MOSS, DR REJI Byrd Admitting Unavailable MOSS, DR REJI Byrd Attending Unavailable MOSS, DR REJI Byrd Primary Care Unavailable MOSSREJI ROBLES Primary Care Physician [phone] Reji Moss MD Primary Care Provider Byron Wiley Admitting Unavailable DolByron arias Attending Unavailable Byron Wiley Referring Unavailable Dipak Gaxiola DO Attending Provider NON STAFF Primary Care Provider UnavailMalika Ferrer DO Attending Provider [phone] Reji Moss MD Primary Care Provider [phone] EAGLE MICHELLE Attending Unavailable SHON DORMAN Attending [...] simethicone 25 mg chewable tablet (20 sources)Start: 56-08-7414smko 1 tablet by mouth every two hoursStart: 97-90-2380Brourg Plus oral tablet, chewable Refill(s) 0 Start Date: 07/30/23 Status: OrderedStart: 30-07-4361pkso 1 tablet by mouth four times dailyMintox Plus 200-200-25 MG chewable tablet CHEW 1 TABLET BY MOUTH 4 TIMES DAILY 06/05/2023 Activebisacodyl 10 mg rectal suppository (20 sources)Stimulant LaxativeStart: hr buPROPion hydrochloride 100 mg extended release oral tablet (20 sources)AminoketoneStart: 25-82-4867cegw 1 tablet by mouth twice dailyStart: 15-79-4123tyUHBJetd 100 mg ER Tab Refills(s) 0 Start Date: 07/30/23 Status: OrderedStart: 20-89-2896dpQYKGqvb (Wellbutrin) 100 MG tablet 06/06/2023 Active cloNIDine (20 sources)Central alpha-2 Adrenergic AgonistStart: 06-82-6918lugrzssty BID, Refills(s) 0 Start Date: 09/10/09 Status: OrderedcloNIDine (Catapres) 0.2 MG tablet 1 (one) time each day at the same time Activecyproheptadine hydrochloride 4 mg oral tablet (3 sources)Start: 78-96-1167lggt 1 tablet by mouth once daily at bedtimediazePAM 10 mg oral tablet (20 sources)BenzodiazepineStart: 12-09-2024 End: 22-56-2410vrnj 1 tablet by mouth every six hoursdiazePAM (Valium) 10 MG tablet Indications: Lisfranc dislocation, left, initial encounter Take 1 tablet (10 mg) by mouth every 6 (six) hours if needed for sedation for up to 2 days 2 tablet 12/09/2024 ActiveStart: 81-94-0297Vntjwq 10 MG tablet Indications: Lisfranc dislocation, left, initial encounter Take 1 tablet (10 mg) by mouth 1 (one) time if needed for sedation (take 1 pill 30 minutes prior to to his office visit for suture removal) for up to 1 dose 1 tablet 12/09/2024 Activedicyclomine hydrochloride 10 mg oral capsule (20 sources)AnticholinergicStart: 25-03-6984rvxg 1 capsule by mouth four times daily as neededdicyclomine (Bentyl) 10 MG capsule TAKE ONE CAPSULE BY MOUTH FOUR TIMES A DAY NEEDED 01/19/2023 ActiveStart: 01-01-2023 End: 93-52-2906ixoa 1 capsule by mouth four times dailydicyclomine 10 mg Cap 10 mg = 1 cap(s), Oral, QID, X 14 day(s), # 56 cap(s), Refills(s) 0 Start Date: 01/01/23 Stop Date: 01/15/23 Status: Dkaavpr83 hr guaiFENesin 600 mg extended release oral tablet (20 sources)guaiFENesin (Mucinex) 600 MG 12 hr tablet Take 1,200 mg by mouth ActiveGuanfacine (20 sources)Central alpha-2 Adrenergic AgonistStart: 29-46-1882abpbmuyaop Oral, Once a day (at bedtime), Refills(s) 0 Start Date: 09/10/09 Status: Ordered guanFACINE (Tenex) 2 MG tablet Take by mouth Activehaloperidol 20 mg oral tablet (20 sources)Typical AntipsychoticStart: 89-08-9307qlywkxtwodx (Haldol) 20 MG tablet 06/06/2023 Activeibuprofen 600 mg oral tablet (2 sources)Nonsteroidal Anti-inflammatory DrugStart: 81-88-3804zjki 1 tablet by mouth every six hours as needed for painibuprofen (MOTRIN) 600 MG tablet Take 1 Tab by mouth every 6 hours as needed for Pain. 30 3 10/27/2009 ActiveEnulose (2 sources)Osmotic LaxativeStart: 45-73-6771Kuhloji 10 gram, Oral, Daily, Refills(s) 0 Start Date: 09/10/09 Status: OrderedlevETIRAcetam 500 mg oral tablet (3 sources)Start: 38-34-3745hfng 1 tablet by mouth twice dailylinaclotide 0.29 mg oral capsule (20 sources)Guanylate Cyclase-C AgonistStart: 57-42-4382Mbfigxq 290 mcg oral capsule Refills(s) 0 Start Date: 07/30/23 Status: OrderedStart: 74-93-5712lzzn 1 capsule by mouth in the morningLinzess 290 MCG capsule Take 290 mcg by mouth in the morning. 05/29/2023 Activelisdexamfetamine dimesylate 70 mg oral capsule (20 sources)Central Nervous System StimulantStart: 39-56-4565owgp 1 capsule by mouth once dailyLoratadine (20 sources)Start: 27-49-4925shplolhrna 10 mg, Refills(s) 0 Start Date: 09/10/09 Status: Orderedtake 1 tablet by mouth once dailyloratadine (Claritin) 10 MG tablet TAKE ONE TABLET BY MOUTH ONCE DAILY CLARITIN Activemetoprolol tartrate 25 mg oral tablet (20 sources)beta-Adrenergic BlockerStart: 28-97-5885qkth 1 tablet by mouth twice dailyStart: 20-12-3347faafregyad Refills(s) 0 Start Date: 09/10/09 Status: Orderedtake [...] mg oral tablet (20 sources)Leukotriene Receptor AntagonistStart: 64-37-7560swao 1 tablet by mouth once daily at bedtimenaltrexone hydrochloride 50 mg oral tablet (20 sources)Opioid AntagonistStart: 29-89-4462bwvu 1 tablet by mouth once daily Start: 76-76-2257rpptamxmno Refills(s) 0 Start Date: 09/10/09 Status: Ordered Zyprexa (2 sources)Atypical AntipsychoticStart: 27-24-0193Zwyifak Refills(s) 0 Start Date: 4/30/10 Status: Orderedomeprazole 40 mg delayed release oral capsule (20 sources)Proton Pump InhibitorStart: 36-64-8122ohxv 1 capsule by mouth once dailyondansetron 4 mg oral tablet (20 sources)Serotonin-3 Receptor Antagonistondansetron (Zofran) 4 MG tablet every 12 (twelve) hours Activepolyethylene glycol 3350 56402 mg powder for oral solution (20 sources)Osmotic LaxativeStart: 08-16-4026wifwxcqpkjhi glycol, PEG, 3350 (Glycolax) 17 GM/SCOOP powder TAKE 17 GRAMS BY MOUTH ONCE DAILY IF NO BOWEL MOVEMENT IN 4 DAYS NEEDED 2023 ActiveStart: 89-67-3064boptfrtlqsdh glycol 3350 17 gram, Oral, Daily, Refill(s) 0 Start Date: 09/10/09 Status: OrderedStart: 48-39-0773azrkykoqsxmb glycol 3350 17 gram, Oral, Daily, 0 Start Date: 09/10/09 Status: Orderedprochlorperazine 10 mg oral tablet (20 sources)PhenothiazineStart: 27-77-2204zcmesonaqqgsubwu (Compazine) 10 MG tablet 06/06/2023 ActiveQUEtiapine 400 mg oral tablet (20 sources)Atypical AntipsychoticStart: 14-54-7553GDNipplmcy (SEROquel) 400 MG tablet 06/06/2023 Activesennosides, [facility] 8.6 mg oral tablet (20 sources)sennosides (Senokot) 8.6 MG tablet 1 (one) time each day at the same time ActiveSertraline (2 sources)Serotonin Reuptake InhibitorStart: 53-44-8164bzobjoxtwi Oral, Daily, Refills(s) 0 Start Date: 09/10/09 Status: Ordered Problems Problem ClassificationProblemDateDocumented DateEpisodic/ChronicAbdominal hernia (3 sources)Diaphragmatic hernia; Translations: [Diaphragmatic hernia without obstruction or gangrene]Onset: 08-38-9702HchmztngOoeuvqc disorders (2 sources)Obsessive-compulsive laivxcnt20-95-8339XqskuceUffukh (2 sources)Lctafv57-18-4431NairewxIxkmbsfgp-olljpiv, conduct, and disruptive behavior disorders (2 sources)Attention deficit hyperactivity uqgokeyu77-26-0505Inlxrjn Developmental disorders (2 sources)Intellectual functioning rrmbeotqhk82-36-2041EuriwtoBlycrjyck usually diagnosed in infancy, childhood, or adolescence (2 sources)Autistic disorder; Translations: [Autism spectrum disorder]07-25-2013 ChronicEpilepsy; convulsions (6 sources)Epilepsy; Translations: [Epilepsy, unspecified, not intractable, without status epilepticus]46-03-6574LhgtrgaJqibplmnzm disorders (4 sources)Gastroesophageal reflux disease without esophagitis; Translations: [Gastro-esophageal reflux disease without esophagitis]Onset: 01-51-3631Yistewe Essential hypertension (2 sources)Hypertensive dczszgvi89-49-5861MdzmdrlIulzptiz of lower limb (6 sources)Closed fracture of second metatarsal bone; Translations: [Displaced fracture of second metatarsal bone, left foot, initial encounter for closed fracture]39-98-0847HwtognqhKpalgevhvauedr ulcer (except hemorrhage) (2 sources)Peptic okamr24-75-5626AtfbqmfZbabn disorders and dislocations; trauma-related (15 sources)Traumatic dislocation of joint of foot; Translations: [Dislocation of tarsometatarsal joint of leftfoot, initial encounter]95-89-6894Flvgfisy Miscellaneous mental health disorders (6 sources)Mental disorder; Translations: [Mental disorder, not otherwise specified]34-27-5856LyhifbdEjojpue (3 sources)Onychomycosis due to dermatophyte ; Translations: [Tinea unguium] 59-66-2334JkqdklxfSidgrm and vomiting (3 sources)Vomiting; Translations: [Vomiting, unspecified]Onset: 01-01-2023 EpisodicOther aftercare (4 sources)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 helper (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; Translations: [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 CHAIN ASSOCIATE CURRENT DRUG THERAPY]Onset: 07-28-9098NfkdbfetVtcpg connective tissue disease (4 sources)Pain in toe; Translations: [Pain in right toe(s)]19-76-6646Jfainlvg Other connective tissue disease (10 sources)Pain in left foot; Translations: [Pain in left foot]11-19-2024 EpisodicOther connective tissue disease (1 source)Pain of toe of left foot; Translations: [Pain in left toe(s)] 36-64-5109EgfkglrxIfhfy connective tissue disease (1 source)Pain of toe of right foot; Translations: [Pain in right toe(s)] 60-66-3318GliyglumVepcr gastrointestinal disorders (3 sources)Burping; Translations: [Eructation]Onset: 99-68-7795RwkepwcxJroqq nervous system disorders (6 sources)Does not speak; Translations: [Aphasia]18-32-2700DtxsxfbYmaln nutritional; endocrine; and metabolic disorders (2 sources)Loss of appetite; Translations: [Anorexia]Onset: 15-29-9675Lyrdwvnx Other nutritional; endocrine; and metabolic disorders (1 source)Decrease in sbeirvsd47-00-7726FqjgbhzvLpbsh skin disorders (2 sources)Dystrophia unguium; Translations: [Nail dystrophy]54-24-7406Irrhlxjv Other upper respiratory disease (2 sources)Seasonal qrnidvb95-12-8001AaguxgyAhrtxenqkmwt (2 sources)CHRONIC LEFT INFECTED GROIN CYST; Translations: [CHRONIC LEFT INFECTED GROIN CYST]Onset: 05-30-2018 Results Test NameValueInterpretationReference RangeFacilityXR Foot - left 3 Viewson 43-55-4444Rpkqftn Result: Three views were taken today AP/MO/LAT foot: trabeculation noted across the fracture site Lisfranc's joint in good position and alignment fixation intact [facility] CenterRadiology Study observation (narrative) The Rehabilitation InstituteXR Foot - left 3 Viewson 79-03-0793Ijbjpsb Result: Radiographs: AP/MO/LAT: excellent position and alignment of the Lisfranc's fracture dislocation reduction fixation intact. [facility] CenterRadiology Study observation (narrative)The Rehabilitation InstituteOperative Reporton [id number] ReportOperative Report SURGERY DATE: 11/25/2024 FILES SUPERVISOR: Kyler Wiley DPM PREOPERATIVE DIAGNOSIS: Lisfranc fracture-dislocation [...] nonverbal handicapped patient who lives in the [facility]. He jumped off a glider [...] on the foot. PATRICK Cruz Dictated: 11/25/2024 [id number] Transcribed: 11/25/2024NoMercy Health St. Anne HospitalComment on above:Result Comment: Electronically Signed By: Byron Wiley DPM\.br\Date and Time Signed: 12/09/24 13:14 EDTXR Foot - left 2 Viewson 26-64-9477Nzadujm Result: Radiographs: AP/MO/LAT: excellent position and alignment of the Lisfranc's fracture dislocation reduction fixation intact. [facility]S HealthcareRadiology Study observation (narrative)[facility]OMS HealthcareMain OR Intraoperative Recordon 32-75-5462Nccd OR Intraoperative RecordMain OR Intraoperative Record IntraOp Document Type FT Summary Primary Physician: Byron Wiley DPM Finalized Date/Time: 11/26/24 09:38:33 Pt. Name: RENA BAILEY Carson Hung./Sex: 1985 Male Med Rec #: [id number] Physician: Byron Wiley DPM Financial #: [id number] Pt. Type: A Room/Bed: [place] [address] Admit/Disch: 11/25/24 09:57:15 - 11/25/24 15:35:00 Institution: [...] Surgeon - Primary Surgeon - Assist 1 Yield Improvement Engineer Time In 11/25/24 12:44:00 11/25/24 12:44:00 11/25/24 [...] BLACKWELL, Dina Jacinto, Solitario Charles Role Performed Stock Mixer - Primary Scrub - Primary Staff - Other Time In 11/25/24 12:44:00 11/25/24 12:44:00 11/25/24 12:44:00 Time Out 11/25/24 13:59:00 11/25/24 13:59:00 11/25/24 13:59:00 Procedure METATARSAL FRACTURE METATARSAL FRACTURE METATARSAL FRACTURE ORIF(Left) ORIF(Left) ORIF(Left) Comments HELPING IN ROOM Last Modified By: Mehnaz RN, eDe Sutherland RN, Dee Sutherland RN, Dee Charles 11/25/24 Fara P 11/25/24 Fara P 11/25/24 14:02:25 14:02:25 14:02:25 Entry 7 Entry 8 Case Attendee Diaz RT(R), Jennifer Cortes WHIZZER, Zak K Role Performed Engineering Test Mechanic WHIZZER/SA Time In 11/25/24 12:44:00 11/25/24 13:14:00 Time [...] MED STUDENT OBSERVING FOR CASE -Andrea SUTHERLAND RNplumber maintenance Protocols FT Pre-Care Text: Implements protective measures [...] Scherer, Mehnaz BLACKWELL, Dee Charles, Dina Clark, Soliatrio Brown, Diaz RT(R), Jennifer Beasley Time Out [...] Postop Same A (more content not included)... [facility] HospitalDis[facility] Instructionson [id number] InstructionsDischarge Instructions RENA BAILEY :1985 Visit Date:11/25/2024 [...] When: In 1 week 12/02/2024 EDT Where: [facility] [place] [address] [place] [address]- 6 Business (1) Medications What How Much When [...] 11/25/2024 LISFRANC PLATE, LEFT 11/25/2024 [employer] [place], [place] Byron Wiley, DPStephen, FACFAS POST OPERATIVE [...] Report any increase in swelling to Dr. Wiely immediately Resume regular diet. Call the office if you develop: persistent bleeding temperature above 100 degrees persistent vomiting calf pain or shortness of breath redness or pus at operative site Call the office tomorrow for 1st post-operative dressing change appointment. If you have any problems or questions, feel free to call the doctor at: [phone] or [phone] Wiley paged. Patient signature Date Dr. Byron Wiley, DPStephen, FACFAS Date Revised: 06-21 Common Emergency Awareness Tips IS IT A STROKE? Act FAST and Check for these signs: FACE Does the face look uneven? ARM Does one arm drift down? SPEECH Does their speech sound strange? TIME Call at (more content not included)...[facility] Comment on above:Result Comment: Electronically Signed By: Scar BLACKWELL, Nadia Byrd\.jaime\Date and Time Signed: 11/25/24 14:53 EDTInpatient Patient Summaryon [id number] Patient SummaryInpatient Patient Summary [address] [address] [facility] Clinical Discharge Instructions PERSON INFORMATION Name: RENA BAILEY [facility]#:[id number] PHYSICIANS Admitting Physician: Byron Wiley DPM Attending Physician: Byron Wiley DPM PCP: REJI MOSS DO Discharge Diagnosis: Comment: PATIENT EDUCATION INFORMATION Instructions: Rosie - Post Operative Instructions (Revised 01/08/14) (Custom) Medication Leaflets: Follow up: With: Address: When: Byron SOFIA - [facility], [facility], [facility] [address], [place] [address] 0 Business (1) In 1 week 12/02/2024 [...] every day. sertraline By Mouth every day. Comment:[facility] HospitalMain OR PACU I Recordon [id number] OR PACU I RecordMain OR PACU I Record PACU Phase I Document Type FT Summary Primary Physician: Byron Wiley DPM Finalized Date/Time: 11/25/24 15:41:44 Pt. Name: RENA BAILEY/Sex: 1985 Male Med Rec #: [id number] Physician: Byron Wiley DPM Financial #: [id number] Pt. Type: Room/Bed: [place] [address] Admit/Disch: 11/25/24 09:57:15 - Institution: Case Times [...] Signatures Signed By: Abigail Robles RN 11/25/24 15:41NoMercy Health St. Anne HospitalMain OR PACU II Recordon [id number] OR PACU II RecordMain OR PACU II Record PACU Phase II Document Type FT Summary Primary Physician: Byron Wiley DPM Finalized Date/Time: 11/25/24 15:54:35 Pt. Name: RENA BAILEY/Sex: 1985 Male Med Rec #: [id number] Physician: Byron Wiley DPM Financial #: [id number] Pt. Type: A Room/Bed: [place] [address] Admit/Disch: 11/25/24 09:57:15 - 11/25/24 15:35:00 Institution: [...] Signatures Signed By: Nadia Abbott RN 11/25/24 15:54NoMercy Health St. Anne HospitalOutpatient Surgery Discharge Instructionon [id number] Surgery Discharge InstructionOutpatient Surgery Discharge Instruction [address] [address] Patient Discharge Instructions PERSON INFORMATION [...] Follow up: With: Address: When: Byron SOFIA [facility] [address], [place] [address] 0 Business (1) In 1 week 12/02/2024 [...] to serve you. Thank you for choosing [facility] HERE ARE THE MEDICATION CHANGES THAT OCCURRED [...] Mouth every day. PATIENT EDUCATION INFORMATION Instructions: [place], [place] Byron Wiley DPM, FACFAS POST OPERATIVE [...] feel free to call the doctor at: [phone] or [phone] Wiley paged. Patient signature Date Dr. Byron Wiley, DPStephen, FACFAS Date Revised: 06-21 Medication Leaflets:[facility] HospitalProceduralon 11-25-2024 ProceduralProcedural Patient: RENA BAILEY Age: [...] Using maximal sterile barrier technique per current [facility] guidelines including hand hygeine, Guidance (Ultrasound used [...] The patient tolerated the procedure as expected.Normal [facility] CenterALL CBC WITH AUTO DIFFon [id number] ABSOLUTE LZMS5VFXJ HealthcareBasophils/100 WBC (Bld)0.5 %0.2 - 2.0 %[facility] Eosinophils/100 WBC (Bld)0.7 %Low0.9 - 7.0 %The Rehabilitation InstituteErythrocyte distribution width (RBC) [Ratio]13.3 %11.0 - 15.0 %NOM HealthcareHematocrit (Bld) [Volume fraction]41.2 %Low42.0 - 54.0 %The Rehabilitation InstituteHemoglobin (Bld) [Mass/Vol]13.7 g/dLLow14.0 - 18.0 g/dLThe Rehabilitation InstituteIMMATURE GRANULOCYTES ABS AUTO0.01NOMS HealthcareImmature granulocytes/100 WBC (Bld)0.2 %0.0 - 0.5 %[facility] HealthcareInterpretation and review of laboratory resultsAbnormalNOSaint Louis [facility] LYMPHOCYTES ABSOLUTE AUTO1.5N[facility] [place] HospitalLymphocytes/100 WBC (Bld)36.8 %20.5 - 60.0 %[facility] Medical CenterH (RBC) [Entitic mass]30.1 pg25.9 - 34.0 pgNorthwest Medical CenterHC (RBC) [Mass/Vol]33.3 g/dL29.9 - 35.2 g/dLNorthwest Medical CenterV (RBC) [Entitic vol]90.5 fL80.0 - 94.0 fLNOSaint Louis University Health Science CenterMONOCYTES ABSOLUTE AUTO0.4NOMS HealthcareMonocytes/100 WBC (Bld)10.4 %1.7 - 12.0 %NOM HealthcareNEUTROPHILS ABSOLUTE AUTO2.1NOMS HealthcareNeutrophils/100 WBC (Bld)51.4 %43.0 - 75.0 %NOMMid Missouri Mental Health CenterPlatelet mean volume (Bld) [Entitic vol]9.7 fL9.5 - 13.5 fLNOSaint Louis University Health Science CenterTB EO #0NOMS HealthcareTB EDV342RSMO HealthcareTB RBC4.55LowNOMS HealthcareJAMAICA PLAIN VA MEDICAL [facility]ENTER WBC4.1NOMS HealthcareCLINISYNCNOMS HealthcareXR Foot - left 3 Viewson [id number] HealthcareImaging Result: XR left foot: Lisfranc fx with nondisplaced base fx's 3,4,5 metatarsals. Appear to be slightly comminutedNOSouthwest Health CenterRadiology Study observation (narrative)NOMS HealthcareDEPAKENE/ VALPROIC ACIDon [id number] ug/ml Qpchny00.0-100.0The [facility]red Hospital DaytonComment on above:Performed By: #### VALP #### [facility] [address] [place], [place] [address] Dr. Madiha Mireles Noteson [id number] Authentication Interface Message Text----- Thursday, September 23, 2021 at 1:00:26 PM ----- ----- Provider: [id number] Keila Rodriguez -- Clinic: [place] ----- [facility], Pt is ready for tx. Pt presents for examination. Pt is ID and non-verbal. Pt is aggressive and managed care director was taken to the back room to keep pt away from others. Pt is edentulous and Dr. Bose examined the gums and did not see of feel any signs of infection. Advised to return for exams on as need basis. Bhakti [facility]/Dr. Bose [place]. EXAM ----- Signed on Thursday, September 23, 2021 at 4:02:34 PM ----- ----- Provider: [id number] Azam Dinero DMD -- Clinic: [place] -----NormalThe [facility] SystemSurgical Pathologyon [id number] Pathology(NOTE) [id number] [facility] ANATOMIC PATHOLOGY [address] [place] [address]. [place], [place] [address] SURGICAL PATHOLOGY CONSULTATION Patient Name: LEO RENA Tereso Med Rec: [id number] Path Number: [id number] Collected: 05/30/2018 Received: 05/31/2018 Reported: 06/03/2018 15:31 -- Diagnosis -- SKIN TISSUES, EXCISION (LEFT GROIN): - RUPTURED EPIDERMAL CYST WITH MARKED INFLAMMATORY REACTION. Jessi Rudd M.D. Electronically Signed Out [facility]/06/03/2018 Clinical Information Pre-op Diagnosis: CHRONIC LEFT INFECTED GROIN CYST Operative Findings: LEFT GROIN MASS Operation Performed: GROIN EXPLORATION Source of Specimen 1: LEFT GROIN MASS Gross Description RENA LEO, LEFT GROIN MASS Fragments of brown gonzáles skin and subcutaneous tissue with areas of granularity, 2.8 x 2.2 x 0.5 cm. in aggregate. Entirely. 1cs dw Microscopic Description Microscopic examination performed.[facility]de Memorial HospitalComment on above: Performed By: #### PPPVS #### [facility] [place] [address] General Matcher: River Rudd MD Vital Signs Date TimeVital SignValuePerforming JnwpvqafkXagiamry43-19-8320 09:25-0400Body fxsqra738.3 cmMarc Dolce DPM FACFAS Work Phone: [phone] Regional Medical CenterLab21Saint [facility] Health Science CenterIrmrknrtnj94-20-5863 09:25-0400Body mass index (BMI) [Ratio]22.74 kg/m2Marc Dolce DPM FACFAS Work Phone: [phone])OlistaNortheast Regional Medical CenterQuantum SecureThe Rehabilitation InstituteEbkumuarrg89-27-9052 09:25-0400Body iqaybs23.85 kgMarc Dolce DPM FACFAS Work Phone: [phone])OlistaNortheast Regional Medical CenterQuantum SecureThe Rehabilitation InstituteVqeysocvbw44-29-3638 09:25-0400Body hlkukx439.3 cmMarc Dolce DPM FACFAS Work Phone: [phone])OlistaNortheast Regional Medical CenterQuantum SecureThe Rehabilitation InstituteHrbzumoval36-90-6856 09:25-0400Body mass index (BMI) [Ratio]22.74 kg/m2Marc Dolce DPM FACFAS Work Phone: [phone])OlistaSensoristSaint Louis University Health Science CenterCvagueehgi23-15-0339 09:25-0400Body .85 kgMarc Dolce DPM FACFAS Work Phone: 1([phone])[address]08-28-2025 09:12-0400Diastolic blood nybrhkti15 mm[Hg]Dipak Ferrerett DO Work Phone: [facility]08-28-2025 09:12-0400 Heart rate71 /minChristopher Minor DO Work Phone: [facility]08-28-2025 09:12-0400 SaO2% (BldA) [Mass fraction]98 %Dipak Ferrerett DO Work Phone: [facility]08-28-2025 09:12-0400 Systolic blood bztruiqk370 mm[Hg]Dipak Ferrerett DO Work Phone: [phone] [place], [place] 5352808-19-2025 10:52-0400 Body fcacsd729.3 cmMarc Dolce DPM FACFAS Work Phone: [phone] [place], [place] 1364008-19-2025 10:52-0400Body mass index (BMI) [Ratio]22.74 kg/m2Marc Dolce DPM FACFAS Work Phone: [phone])[address] [place], [place] 1364008-19-2025 10:52-0400Body lovssk55.85 kgMarc Dolce DPM FACFAS Work Phone: [phone])[address] [place], [place] 1364008-04-2025 08:47-0400Body glesoh469.3 cmMarc Dolce DPM FACFAS Work Phone: [phone])[address] [place], [place] 1364008-04-2025 08:47-0400Body mass index (BMI) [Ratio]22.74 kg/m2Marc Dolce DPM FACFAS Work Phone: [phone])[address] [place], [place] 1364008-04-2025 08:47-0400Body ygbdlf69.85 kgMarc Dolce DPM FACFAS Work Phone: [phone])[address] [place], [place] 1364007-29-2025 11:12-0400Body onurkv179.3 cmMarc Dolce DPM FACFAS Work Phone: [phone])[address] [place], [place] 1364007-29-2025 11:12-0400Body mass index (BMI) [Ratio]22.74 kg/m2Marc Dolce DPM FACFAS Work Phone: [phone] [place], [place] 1364007-29-2025 11:12-0400Body .85 kgMarc Dolce DPM FACFAS Work Phone: [phone] [place], [place] 1364007-22-2025 11:51-0400Body .3 cmMarc Dolce DPM FACFAS Work Phone: [phone] [place], [place] 1364007-22-2025 11:51-0400Body mass index (BMI) [Ratio]22.74 kg/m2Marc Dolce DPM FACFAS Work Phone: [phone] [place], [place] 1364007-22-2025 11:51-0400Body sxutit52.85 kgMarc Dolce DPM FACFAS Work Phone: [phone] [place], [place] 1364007-09-2025 14:11-0400Body ajhewg254.3 cmMarc Dolce DPM FACFAS Work Phone: [phone] [place], [place] 1364007-09-2025 14:11-0400Body mass index (BMI) [Ratio]22.74 kg/m2Marc Dolce DPM FACFAS Work Phone: [phone] [place], [place] 1364007-09-2025 14:11-0400Body seoseu52.85 kgMarc Dolce DPM FACFAS Work Phone: [phone] [place], [place] 1364007-01-2025 15:06-0400Body mikulg340.3 cmNicholas Brown DPM Work Phone: [phone] [place], [place] [address]Teblvvarlc97-30-4779 15:06-0400Body mass index (BMI) [Ratio]22.74 kg/v8Ylnrnfxi Brown DPM Work Phone: [phone] [place], [place] [address]Zkdjcsgssc29-56-3630 15:06-0400Body zpujxi80.85 kgNicholas Brown DPM Work Phone: [phone] InstituteFkrczvgwrv25-13-4325 15:06-0400Respiratory rate16 /minNicholas Brown DPM Work Phone: [phone] [place], [place] [address]Mjwhgxshrs62-52-8013 10:21-0500Body cjxbet074.3 cmSteven Rusher DPM Work Phone: [phone]98[facility] InstituteOsrlcgsfbk60-38-2589 10:21-0500Body mass index (BMI) [Ratio]22.74 kg/l0Fbbekt Rusher DPM Work Phone: [phone] InstituteEitfxpucgv28-69-0984 10:21-0500Body diqnvz36.85 kgSteven Rusher DPM Work Phone: [phone]08-20-2024 11:12-0400Body .3 cmSteven Rusher DPM Work Phone: [phone]08-20-2024 11:12-0400Body mass index (BMI) [Ratio]22.74 kg/d7Ydmmoh Rusher DPM Work Phone: [phone] InstituteSxbddkahtd11-15-7996 11:12-0400Body ulzvwz31.85 kgSteven Rusher DPM Work Phone: [facility] Healthcare Encounters Encounter DateEncounter TypeCare ProviderFacilityStart: 03-06-2025 End: 98-36-3264Rzqtcc flowsheetMarc D Dolce DPM FACFAS Work Phone: [facility]oms [facility]: 03-06-2025 End: 76-98-3316Iypgvo flowsheetMarc D Dolce DPM FACFAS Work Phone: [facility]oms [facility]2025 End: 12-73-6814Xqzskq outpatient visit 15 minutesMarc D Dolce DPM FACFAS Work Phone: noms NMA PODComment on above:Lisfranc dislocation, left, initial encounter (Primary Dx); Dermatophytosis of nail; Pain in left toe(s); Pain in right toe(s)Start: 03-06-2025 End: 91-53-7405jsgouppdlkMOHF D DOLCENot AvailableStart: 01-29-2025 End: 06-88-7937yjeaphheucQSF [facility] Work Phone: Start: 01-29-2025 End: 40-15-9307Zdkxinc encounter procedureNicole Afsaneh [facility] Neurology Work Phone: Start: 01-20-2025 End: 45-04-9252Tzqkya flowsheetMarc D Dolce DPM FACFAS Work Phone: noms [facility] AustintownStart: 01-20-2025 End: 66-07-3118Qmptmt flowsheetMarc D Dolce DPM FACFAS Work Phone: noms [facility] AustintownStart: 01-20-2025 End: 58-50-9704Ujicbfz encounter procedureMarc D Dolce DPM FACFAS Work Phone: noms NMA PODComment on above:Lisfranc dislocation, left, initial encounter (Primary Dx); Left foot painStart: 01-20-2025 End: 80-01-8549psqystdzutKNWS D DOLCENot AvailableStart: 01-19-2025 End: 96-82-9725vyevprpbosELH [facility] Work Phone: Start: 01-19-2025 End: 82-28-4701Kumyxlo encounter procedureMalika Shelby [facility] Neurology Work Phone: Start: 01-08-2025 End: 64-01-9684hmzypaxnddPASSalem [facility] Hospital Work Phone: Start: 01-08-2025 End: 90-09-9199Knajrng encounter procedureChristopher Minor Mitchell [facility] Neurology Work Phone: Start: 12-30-2024 End: 80-68-7791Hylwky flowsheetMarc D Dolce DPM FACFAS Work Phone: noms [facility] AustintownStart: 12-30-2024 End: 45-08-9954Muemlr flowsheetMarc D Dolce DPM FACFAS Work Phone: noms [facility] AustinwnStart: 12-30-2024 End: 48-84-8013Npcpgu follow up visit related to original pxMarc D Dolce DPM FACFAS Work Phone: noms CTA PODComment on above:Left foot pain (Primary Dx); Lisfranc dislocation, left, initial encounterStart: 12-30-2024 End: 57-82-9456cgifdmcgtzEBCL D DOLCENot AvailableStart: 12-15-2024 End: 98-28-8348Jkrazc flowsheetMarc D Dolce DPM FACFAS Work Phone: noms [facility] CampuswnStart: 12-15-2024 End: 42-04-9328Gesulk flowsheetMarc D Dolce DPM FACFAS Work Phone: noms [facility] CampuswnStart: 12-15-2024 End: 03-52-9745jerwadsbjlYAZH D DOLCENot AvailableStart: 12-15-2024 End: 94-63-5666Nqmgavi encounter procedureMarc D Dolce DPM FACFAS Work Phone: NOMS NMA PODComment on above:Lisfranc dislocation, left, initial encounter (Primary Dx); Left foot painStart: 12-09-2024 End: 63-71-2927Mddixl flowsheetMarc D Dolce DPM FACFAS Work Phone: noMS [facility] CampuswnStart: 12-09-2024 End: 46-49-1929Wadxjm flowsheetMarc D Dolce DPM FACFAS Work Phone: noms [facility] SpringsnStart: 12-09-2024 End: 45-49-1091Zwjpis follow up visit related to original pxMarc D Dolce DPM FACFAS Work Phone: noMS NMA PODComment on above:Lisfranc dislocation, left, initial encounter (Primary Dx)Start: 12-09-2024 End: 07-42-5921idylhnkfufFRLU D DOLCENot AvailableStart: 12-02-2024 End: 52-85-3580Wudjoh flowsheetMarc D Dolce DPM FACFAS Work Phone: DNKX ASC PODStart: 12-02-2024 End: 84-68-9999Aohbcf flowsheetMarc D Dolce DPM FACFAS Work Phone: NOLW ASC PODStart: 12-02-2024 End: 19-29-9192oqpnwwhadsVALZ D DOLCENot AvailableStart: 12-02-2024 End: 88-83-8206Uivhxmr encounter procedureMarc D Dolce DPM FACFAS Work Phone: NYTM NMA PODComment on above:Lisfranc dislocation, left, initial encounter (Primary Dx); Left foot painStart: 11-25-2024 End: 67-86-8388prcgxekcqxAjcs D DolceFacility:FTMCStart: 11-21-2024 End: 33-29-9593Spwanhcqm Result EncounterMarc D Dolce DPM FACFAS Work Phone: YCGI External Department UnsolicitedStart: 11-21-2024 End: 55-84-4972Bmkjmqmof Result EncounterMarc D Dolce DPM FACFAS Work Phone: CCRD External Department UnsolicitedStart: 11-19-2024 End: 29-69-1326Cfeaag outpatient visit 25 minutesMarc D Dolce DPM FACFAS Work Phone: CKBV NMA PODComment on above:Lisfranc dislocation, left, initial encounter (Primary Dx); Left foot pain; Closed displaced fracture of second metatarsal bone of left foot, initial encounter; Closed displaced fracture of third metatarsal bone of left foot, initial encounter; Closed displaced fracture of fourth metatarsal bone of left foot, initial encounterStart: 11-19-2024 End: 67-93-3892fyyvhqdcnfEWCK D DOLCENot AvailableStart: 11-19-2024 End: 49-24-9139Bfegus flowsheetMarc D Dolce DPM FACFAS Work Phone: JORS ASC PODStart: 11-19-2024 End: 84-10-2240Ssnqbp flowsheetMarc D Dolce DPM FACFAS Work Phone: noms [facility] PODStart: 11-11-2024 End: 18-32-4265kzphxsrwxyYDHSTPRD Carson BROWNNot AvailableStart: 11-11-2024 End: 41-79-4167Xfprqo outpatient visit 25 minutesNiclatesha Dorman DPM Work Phone: noms CO PODComment on above:Lisfranc dislocation, left, initial encounter (Primary Dx)Start: 11-11-2024 End: 42-88-5562Mpaqjs flowsheetNiclatesha A Brown DPM Work Phone: noMS CO PODStart: 11-11-2024 End: 21-07-9453Nfgrxv flowsheetNicholas A Brown DPM Work Phone: noms CO PODStart: 07-03-2024 End: 57-72-2066Uzysbz flowsheetSteven A Rusher DPM Work Phone: noMS PODIATRYStart: 07-03-2024 End: 69-43-2239Tkoqzy flowsheetSteven A Rusher DPM Work Phone: noms PODIATRYStart: 07-03-2024 End: 82-18-0799Xtpczde encounter procedureSteven A Rusher DPM Work Phone: noms PODIATRYComment on above:Dermatophytosis of nail (Primary Dx); Dystrophic nail; Pain around toenail, right foot; Pain around toenail, left footStart: 07-03-2024 End: 12-63-3313qydaihefahTIDJBL A RUSHERNot AvailableStart: 01-01-2024 End: 62-21-4533Xpqunn flowsheetSteven A Rusher DPM Work Phone: noms PODIATRYStart: 01-01-2024 End: 59-83-7712Dlnlao flowsheetSteven A Rusher DPM Work Phone: noMS PODIATRYStart: 01-01-2024 End: 06-12-0708Rqjmoej encounter procedureSteven A Rusher DPM Work Phone: NOMS PODIATRYComment on above:Dermatophytosis of nail (Primary Dx); Dystrophic nail; Pain around toenail, right foot; Pain around toenail, left footStart: 07-30-2023 End: 58-41-2434Gvkrtlj encounter procedureMurosie Talal Carolemini [phone]-PcqizUniversity [facility]als [facility] Start: 01-01-2023 End: 70-58-1991Hddflje encounter procedureMuhamjannetd Talal Carolemini [phone]-YqaaaUniversity [facility]als [facility] Start: 79-14-7192zlbtuvpzoeJQDesiree MOSS Facility:A5Nhqgq: 08-31-2022 End: 33-98-2305csyemgwovuCG DANIEL A HERRINGFacility:Z1Lpfvc: 39-62-8895Bnowlv encounterBogdbrayan Quinteros DDS Work Phone: [facility]Start: 29-66-4025Yqmhsi encounterBoabeba Quinteros DDS Work Phone: [facility]HealthStart: 09-23-2021 End: 12-39-8222hysajcujhtRPKEXWV PROVIDERFacility:METROHealthStart: 05-30-2018 End: 64-94-8151Kgcyzuq [facility] procedureMi[facility] Procedures DateProcedureProcedure DetailPerforming ClinicianStart: 11-63-1400Dotbo foot complete minimum 3 viewsMarc D Dolce DPM FACFAS Work Phone: Start: 90-28-1417Sosbd foot complete minimum 3 views Byron Brendan Dolce DPM FACFAS Work Phone: Start: 50-32-2404Wqmliwlvvl examination foot 2 views Byron Brendan Dolce DPM FACFAS Work Phone: Start: 38-55-2787ZZI CBC WITH AUTO DIFFMarc D Dolce DPM FACFAS Work Phone: Start: 79-25-7044Denpq foot complete minimum 3 views Byron Wiley DPM FACFAS Work Phone: Start: 07-81-5749BWNIPIRTX PATIENTBETTIZEMIStart: 77-70-1941YVBVYRWD PATHOLOGYBETTIZEMI Plan of Treatment DateCare ActivityDetailAuthorStart: 66-11-1042Eimgtokt (RZV) Vaccine (1 of 2) Shingles (RZV) Vaccine (1 of 2)[facility]HealthStart: 07-03-2025 End: 53-43-3118Mifmhig encounter ttcapmoyb45/20/2026 9:00 AM EST Procedure Visit [facility] [address] [place] [address] Byron Wiley, DPM FACFAS [address] [place] [address] NOMS NMA PODStart: 03-06-2025 End: 55-30-8360Esrxmvs encounter rhufhmzme96/24/2025 9:10 AM EDT Procedure Visit [facility] [address] [facility] [place] [address] Byron Wiley, DPM FACFAS [address] [place] [address] ArrivedNOMS NMA PODComment on above:ArrivedStart: 02-11-2025 End: 21-59-1863Zolddns encounter jeqctheup10/01/2025 8:50 AM EDT Procedure Visit [facility] [address] [place] [address] Byron Wiley, DPM FACFAS [address] [place] [address] [facility]OM[facility] NMA PODStart: 01-20-2025 End: 27-63-0538Ntsuxby encounter procedureNOMS NMA PODComment on above:Arrived Start: 69-84-6720Xhhbbngug vaccinationInfluenza Vaccine (#1)[facility] Start: 01-05-2025 End: 94-02-8365Xhnakwa encounter vghdjmwji98/25/2025 8:50 AM EDT Office Visit [facility] [address] [facility] [place] [address] Byron Wiley, DPM FACFAS [address] [place] [address] [facility]OM[facility] NMA PODStart: 12-31-2024 End: 47-44-7327Pqqiyww encounter procedureNOMS FH PODIATRYStart: 12-30-2024 End: 95-62-9364Skmfudl encounter ilmbyjxrn80/19/2025 10:10 AM EDT Office Visit [facility] [address] [place] [address] Byron Wiley, DPM FACFAS [address] [place] [address] ArrivedNOMS NMA PODComment on above:ArrivedStart: 12-15-2024 End: 38-40-8192Ckyofpb encounter pmrrczaon44/04/2025 8:30 AM EDT Office Visit [facility] [address] [place] [address] Byron Wiley, DPM FACFAS [address] [place] [address] [facility]OM[facility] NMA PODStart: 12-09-2024 End: 25-40-2785Obzzouo encounter procedureNOMS NMA PODComment on above:Arrived Start: 11-19-2024 End: 50-86-3892Fneciry encounter ppoltyrxe71/09/2025 2:40 PM EDT Office Visit [facility] [address] [facility] [place] [address] Byron Wiley, DPM FACFAS [address] [place] [address] ArrivedNOMS NMA PODComment on above:ArrivedStart: 11-11-2024 End: 69-80-3478Zoiowks encounter bhxpnuzbd07/01/2025 3:00 PM EDT Office Visit [facility] POD [address] [place] [address] Shon Dorman, DPM [address] [address] [facility] CO PODStart: 07-03-2024 End: 85-29-5460Uecpomj encounter procedureNOMS PODIATRYComment on above: ArrivedStart: 84-32-9434Ranaxvjtx vaccinationInfluenza Vaccine (#1)[facility] HealthcareStart: 01-01-2024 End: 32-19-7805Qboepet encounter viqpkhocv29/20/2024 10:45 AM EDT Procedure Visit [facility] [address] [place] [address] Eagle Michelle, DPM [address] [place] [address] ArrivedNOMS PODIATRYComment on above:ArrivedStart: 02-07-2023 End: 74-58-0016Jkmaoji encounter /27/2023 Procedure Visit Dentistry Jose Dinero, DMD [address] [place] [address] [facility] DentistryStart: 76-51-7174Daslvqw vaccinationTetanus (Td or Tdap) BoosterMetroHealthStart: 26-39-1718Iwqov panel CholesterolMetroHealthStart: 60-44-4287Hwajxhkyr vaccinationInfluenza Vaccine (#1)[facility]roHealthStart: 54-91-2401FCLAE-19 Vaccine (4 - Booster for Pfizer series) COVID-19 Vaccine (4 - Booster for Pfizer series)[facility]roHealthStart: 2005 Hepatitis C screeningHepatitis C AntibodyMetroHealthStart: 25-10-0456IWD screeningHIV TestMetMarietta Osteopathic Clinic Immunizations Immunization DateImmunizationNotesCare XfpebiqgCaytkqkn08-81-6467duacztnsm virus vaccine, unspecified formulationMardigna Rosie DPM FACFAS Work Phone: [facility]OSaint [facility] Science CenterCeqagwpjsa16-42-9151hsggazjlt virus vaccine, unspecified formulationNiclouissharonda Dorman DPM Work Phone: NOSaint [facility] Science CenterLmhfaakwuy07-18-5260bpqunhf toxoid, reduced diphtheria toxoid, and acellular pertussis vaccine, adsorbedMuhammad Sarmini 380-6825Ptydxk-PlfeyUniversity Hospitals [facility]estive Ukkqmo46-25-3666 influenza virus vaccine, unspecified formulationMuhammad Sarmini [phone]-JxlvxUniversity Hospitals [facility] Auxafs51-79-2148 influenza virus vaccine, unspecified formulationMuhammad Sarmini [phone]-AjbneUniversity Hospitals [facility] Digestive Bktevs05-35-2478 SARS-CoV-2 (COVID-19) mRNAMUL.ORD!g94243Cvtjxdlj Sarmini 609-6483Vkosha-YuafpUniversity Hospitals Cleveland [facility] Center Digestive HealthComment on above:Result Comment: 2022-12-06: MJUVCW29-96-7855ijgrrosym, injectable, quadrivalent, preservative freeBogdan Butriy DDS Work Phone: [phone]) [phone]gClnesc23-66-5520OTCI-CdR-2 (COVID-19) mRNA BNT- 162b2 vaxMuhammad Sarmini 511-8282Snzorq-KcdywUniversity Hospitals Cleveland [facility] Center Digestive HealthComment on above:Result Comment: 2022-12-06: TLP996-81-3036bqlqomnpg virus vaccine, unspecified formulationBogdan Butriy DDS Work Phone: [phone]) [phone]-FarkiUniversity Hospitals [facility] Izudsx99-36-3634 Pfizer (12+ yrs) SARS-COV-2 (COVID-19) vaccine, mRNA, spike protein, LNP, pres. free, 30 mcg/0.3mL dose (GBJ=365)Uday Butriy DDS Work Phone: [facility]elsius Game StudiosroHealthComment on above:Result Comment: 2022-12-06: DWSIA46-27-0662Aelvrn (12+ yrs) SARS-COV-2 (COVID-19) vaccine, mRNA, spike protein, LNP, pres. free, 30 mcg/0.3mL dose (FRA=312)Uday Butriy DDS Work Phone: MetroHealthComment on above:Result Comment: 2022-12-06: CUFQN39-50-6668ffzrxvlxm virus vaccine, unspecified formulation Keane Sarmini 276-5431Bvwptz-LzmxxTrinity Health System10-07-2020 influenza, injectable, quadrivalent, preservative freeBogdan Butriy DDS Work Phone: [phone]) [phone]vNadjlj95-95-7721asyedxvio virus vaccine, unspecified formulationMuhammad Sarmini [phone]-WgdnvUniversity Hospitals [facility] Dig[facility]ive Mqabug09-28-9114 influenza, injectable, quadrivalent, contains preservativeBogdan Butriy DDS Work Phone: [phone]eWgopyo35-18-9848yiroqriqs virus vaccine, unspecified formulationMuhammad Sarmini 514-9440Ovyfzo-YnlfeUniversity Hospitals Cleveland [facility] Center [facility] Ajzrzo36-12-9849 influenza, injectable, quadrivalent, preservative freeBogdan Butriy DDS Work Phone: [phone]) [phone]yDmpios09-10-4825jkfdpbmpp virus vaccine, unspecified formulationMuhammad Sarmini 382-0992Owemiy-NdlxxUniversity Hospitals [facility] Sppyuv87-46-6275 influenza, injectable, quadrivalent, contains preservativeBogdan Butriy DDS Work Phone: [phone]qOhbild03-06-4654cqxayaxnb virus vaccine, unspecified formulationMuhammad Sarmini 092-7953Wnroyc-QkpzbUniversity Hospitals [facility] Rkivzr83-87-3176 influenza, injectable, quadrivalent, preservative freeBogdan Butriy DDS Work Phone: [phone]iYoyozm99-53-0790bubqpdb toxoid, reduced diphtheria toxoid, and acellular pertussis vaccine, adsorbedBogdan Butriy DDS Work Phone: [phone]) [phone]iOoevop66-94-1063sekfw dyayyarhq-O8N3-33, preservative-free, injectableBogdan Butriy DDS Work Phone: [phone]) [phone]vUtrvgy83-06-0070sbswxzdhn virus vaccine, whole virusBogdan Butriy DDS Work Phone: [phone]) [phone]kOizszv40-21-8929zkgixwniw, wholeMuhammad Sarmini 452-6023Znepjf-GdvzzUniversity [facility] Eiqyox53-09-1818 influenza virus vaccine, unspecified formulationMuhammad Sarmini 474-9332Vtsjhr-ArskjTrinity Health System10-31-2006 influenza, seasonal, injectableBogdan Butriy DDS Work Phone: [phone]xDkpkag47-34-5201OR(adult) unspecified formulation; Translations: [Td(adult) unspecified formulation]Uday Butriy DDS Work Phone: [phone]nYwfwch96-67-6103bxtprig, mumps and rubella virus vaccineBogdan Butriy DDS Work Phone: [phone]) [phone]oHdktqd66-27-0028pvngbnmyr B vaccine, pediatric or pediatric/adolescent dosageBogdan Butriy DDS Work Phone: [phone]nSgrxya95-07-3697ldvhsjywd B vaccine, pediatric or pediatric/adolescent dosageBogdan Butriy DDS Work Phone: [phone]) [phone]mHjtfzi49-05-0819ebkvserdv B vaccine, pediatric or pediatric/adolescent dosageBogdan Butriy DDS Work Phone: [phone]wZggftr71-19-6587lappijqyeu, tetanus toxoids and acellular pertussis vaccine, unspecified formulationBogdan Butriy DDS Work Phone: [phone]iKlbsmv37-50-0233FSzP, unspecified formulation Keane Sarmini 538-8342Wgukfn-FuhaiTrinity Health System09-16-1993 poliovirus vaccine, inactivatedBogdan Butriy DDS Work Phone: [phone]oNsjeui55-93-6855biyozpdjok vaccine, unspecified formulationMuhammad Sarmini 320-3750Ejavcc-RbfqnTrinity Health System11-20-1990 diphtheria, tetanus toxoids and pertussis vaccineBogdan Butriy DDS Work Phone: [phone]aLmnuzf31-31-8063trjbphxnmib influenzae type b vaccine, conjugate unspecified formulationBogdan Butriy DDS Work Phone: [phone]bUugwva24-53-8403Xvo, unspecified formulation Keane Sarmini 615-1524Pmyohk-QbicsTrinity Health System11-20-1990 poliovirus vaccine, inactivatedBogdan Butriy DDS Work Phone: [phone]hKstuil25-65-9572rdszauclvq vaccine, unspecified formulationMuhammad Sarmini 811-0250Wuckif-MdcthTrinity Health System09-07-1989 diphtheria, tetanus toxoids and pertussis vaccineBogdan Butriy DDS Work Phone: LohbbMdanmb05-510852TnqmhGqpfhu65-20-1859cxzrkgr, mumps and rubella virus vaccineBogdan Butriy DDS Work Phone: AsddbDdsmmi52-634082KkdvgFxtzyx52-49-2107uplkwenywl vaccine, inactivated Uday Butriy DDS Work Phone: NmpsgQwiwhb71-310266YrfudMwcyej42-17-0816bcombfrmid vaccine, unspecified formulationMuhammad Sarmini 060-7086Npczyx-FpvvjTrinity Health System08-18-1988 diphtheria, tetanus toxoids and pertussis vaccineBogdan Butriy DDS Work Phone: [phone]wQtucez16-75-8841bdnotjcgpwf influenzae type b vaccine, conjugate unspecified formulationBogdan Berylriy DDS Work Phone: [phone]bFdisxk25-68-2369Xrq, unspecified formulation Keane Carolemini 796-8752Faglev-GgbswUniversity Hospitals [facility] Xllwyw28-94-5023 poliovirus vaccine, inactivatedBogdbrayan Cordobariy DDS Work Phone: [phone]vRfezhm45-89-7267dcxcytebot vaccine, unspecified formulationMuhammad Sarmini 459-0416Hiyuqv-HmibiUniversity Hospitals [facility] Payers DatePayer CategoryPayerPolicy [id number] 2008Medicare [id number] -BLUE CROSS TRADITIONAL ANTHEM /BLUE CROSS TRADITIONAL xxx xxx [phone]-Present [address] [place] [address] [id number] [id number] [id number] 2.16840.1.608796.3.57[id number] 2.16840.1.259498.3.57[id number] 2.16840.1.069292.3.57[id number] 2.16840.1.768077.3.57[id number] 2.16.840.1.137898.3.57[id number] 2.16.840.1.802558.3.57[id number] 2.16.840.1.062576.3.57[id number] 2.16.840.1.193568.3.57[id number] 2.16.840.1.451554.3.579.2.183297-92-3748Ssiltmf69239080 2.0.1.839536.3.57[id number] 2.16840.1.629824.3.57[id number] 2.0.1.611475.3.57[id number] 2.0.1.363692.3.579.[id number] 2.0.1.946440.3.57[id number] 2.0.1.326279.3.579.2.023351-52-5982Fymbeaa2179451 2.0.1.369149.3.579.2.1259 [id number] 1958Medicare [id number] 2.840.1.459227.3.579.2.64800-20-1815 [id number] 2.16840.1.040201.3.5[id number] Social History DateTypeDetailFacilityTobacco smoking status NHISTobacco smoking consumption unknownMetroHealthStart: 34-09-9468Pis Assigned At BirthNot on fileMetAdena Regional Medical Center Tobacco smoking statusNo Smoking Status EnteredUniversity [facility] Start: 06-12-2023 End: 32-65-2548Oot Assigned At [facility]htart: 79-97-2977Obuhxlx smoking status NHISNever smoked tobaccoNOMS HealthcareStart: 06-12-2023 End: 45-62-2525Zpqxxgcds beverage intakeLifetime non-drinker (finding)[facility] HealthcareStart: 06-12-2023 End: 18-74-8058Eehkwra of Social functionNOMS HealthcareStart: 42-70-8385Hvxabnk CommentCaffeine intake: noneNOMS HealthcareSexMale (finding)The MetroHealth Systemtart: 14-58-9091Gmy Assigned At [facility] Centertart: 68-11-1544CegRzikZWRO Healthcare Functional Status XefbObpmodqfitInkswlXqpvzvra05-97-8038Noqakacjet StatusN/[facility]ive Nqvbhr65-11-3066Dvgggkkair StatusN/[facility] Clinical Notes 01-01-2023 to 03-06-2025 Note Date & WgymWnjcAgcbgthx60-93-1425 History of Present illness Narrative* Byron Wiley [...] with subungual debris and painful to palpation 85377 on the right 51373 on the left VASC: DP /PT were palpable bilateral. Capillary refill time < 3 seconds Digits 1-5 bilateral NEURO: [place] 5.07 monofilament was intact B/L. Vibratory [...] through 10 PATRICK Majano documented in this encounterThe Rehabilitation InstituteEpnrkgwxvv02-69-7183 History of Present illness Narrative* PATRICK Majano [...] < 3 seconds Digits 1-5 bilateral NEURO: [place] Kayy 5.07 monofilament was intact B/L. Vibratory [...] is healed. PATRICK Majano documented in this encounterThe Rehabilitation [id number] Evaluation note* Diagnosis Onset Date Resolution Status Admit Date Epilepsy acuteAugust 2024 9:02amNonverbalacuteAugust 2024 9:02amPsychiatric disorderacuteAugust 2024 9:02am [facility] Work Phone: 1(851) 606-776708-19-2025 History of Present illness Narrative* PATRICK Majano [...] < 3 seconds Digits 1-5 bilateral NEURO: [place] Kayy 5.07 monofilament was intact B/L. Vibratory [...] for x-ray PATRICK Majano documented in this encounterThe Rehabilitation [id number] History of Present illness Narrative* PATRICK Majano [...] < 3 seconds Digits 1-5 bilateral NEURO: [place] Kayy 5.07 monofilament was intact B/L. Vibratory [...] initial encounter 2. Left foot pain PLAN [place] removed today the patient was given 10 mg of Valium prior to the procedure. He is here today with his brother. We applied a dry sterile dressing and another posterior splint he will continue nonweightbearing status follow up 3 weeks for serial radiographs PATRICK Majano documented in this encounterThe Rehabilitation [id number] History of Present illness Narrative* PATRICK Majano [...] < 3 seconds Digits 1-5 bilateral NEURO: [place] Kayy 5.07 monofilament was intact B/L. Vibratory [...] his visit PATRICK Majano documented in this encounterThe Rehabilitation InstituteInbgwflscd57-78-9674 History of Present illness Narrative* PATRICK Majano [...] < 3 seconds Digits 1-5 bilateral NEURO: [place] Kayy 5.07 monofilament was intact B/L. Vibratory [...] suture removal PATRICK Majano documented in this encounterThe Rehabilitation [id number] NoteProgress Note-Physician Patient: RENA BAILEY Age: 39 years Sex: Male : 1985 Associated Diagnoses: None Author: Hugo BARBOUR, Landon Jacobs Postoperative Information Postoperative disposition: Postoperative disposition: To PACU. Optimetrix number: Optimetrix number [id number]. Anesthetic utilized: General, Popliteal Sciatic N Block. [...] Stable. Plan Transfer/Discharge: Transfer/Discharge Discharge when meets criteria.[facility] CenterComment on above:Result Comment: Electronically Signed By: Hugo BARBOUR, Landon Jacobs\.br\Date and Time Signed: 11/25/24 15:01 [id number] Note Patient Education - Text [place], [place] Byron Wiley, PATRICK, FACFAS POST OPERATIVE [...] feel free to call the doctor at: [phone] or [phone] Wiley paged. Patient signature Date Dr. Byron Wiley DPM, STEPHANIA Date Revised: 06-21[facility]07-15-2025 NoteProgress Note-Physician Patient: RENA BAILEY Age: 39 years Sex: Male : 1985 Associated Diagnoses: None Author: Byron Wiley DPM Postoperative Information Preoperative Diagnosis: Lisfranc fracture dislocation left. Postoperative Diagnosis: Same. Performed by: Byron Wiley DPM Yield Improvement Engineer: Kyler Wiley DPM Complications: None. ORIF left Lisfranc fracture dislocation Application of below-knee posterior splintUniversity Hospitals Samaritan Medical CenterComment on above:Result Comment: Electronically Signed By: Byron Wiley DPM\.br\Date and Time Signed: 11/25/24 14:14 [id number] NoteProgress Note-Physician Patient: RENA BAILEY Age: 39 [...] deficit disorder with hyperactivity / SNOMED CT 8722527490 / Confirmed ASTHMA / ICD-9-CM 493 / Confirmed Autistic disorder / ICD-9-CM 299.0 / Confirmed Belching / SNOMED CT 303125032 / Confirmed GERD [Gastroesophageal reflux disease] / ICD-9-CM 530.81 / Confirmed Hiatal hernia / ICD-9-CM 553.3 / Confirmed HYPERTENSION / ICD-9-CM 997.91 / Confirmed Mental retardation / ICD-9-CM 759.89 / Confirmed Obsessive compulsive disorder / SNOMED CT 9829746316 / Confirmed Peptic ulcer disease / SNOMED CT 1394834144 / Confirmed Poor appetite / SNOMED CT 195743602 / Confirmed Seasonal allergy / SNOMED CT 1087445005 / Confirmed Seizures / SNOMED CT 169765074 / Confirmed Vomiting / SNOMED CT 2261306251 / Confirmed, Active Problems (14) ADHD - Attention deficit disorder with hyperactivity ASTHMA Autistic disorder Belching GERD [Gastroesophageal reflux disease] Hiatal hernia HYPERTENSION Mental retardation Obsessive compulsive disorder Peptic ulcer disease Poor appetite Seasonal allergy Seizures Vomiting Histories Past Medical History: Active Autistic disorder (299.0) Mental retardation (759.89) Obsessive compulsive disorder (3136093303) ADHD - Attention deficit disorder with hyperactivity (4004349454) GERD [Gastroesophageal reflux disease] (530.81) HYPERTENSION (997.91) Hiatal hernia (553.3) Seasonal allergy (9299683695) ASTHMA (493) Peptic ulcer disease (8849850787) Family History: No family history items have been selected or recorded. Procedure history: Entire teeth set pulled (6610647121). Social History Social & Psychosocial Habits Alcohol 11/25/2024 Risk Assessment: Denies Alcohol Use Substance Abuse 11/25/2024 Risk Assessment: Denies Substance Abuse Tobacco 11/25/2024 Risk Assessment: Denies Tobacco Use . Physical Examination V (more content not included)...[facility] CenterComment on above: Result Comment: Electronically Signed By: Landon Arias MD\.br\Date and Time Signed: 11/25/24 13:42 [id number] NoteHistory and Physical Patient: RENA BAILEY Age: [...] deficit disorder with hyperactivity / SNOMED CT 3975578291 / Confirmed ASTHMA / ICD-9-CM 493 / Confirmed Autistic disorder / ICD-9-CM 299.0 / Confirmed Belching / SNOMED CT 783532008 / Confirmed GERD [Gastroesophageal reflux disease] / ICD-9-CM 530.81 / Confirmed Hiatal hernia / ICD-9-CM 553.3 / Confirmed HYPERTENSION / ICD-9-CM 997.91 / Confirmed Mental retardation / ICD-9-CM 759.89 / Confirmed Obsessive compulsive disorder / SNOMED CT 4854821969 / Confirmed Peptic ulcer disease / SNOMED CT 4828246393 / Confirmed Poor appetite / SNOMED CT 138092987 / Confirmed Seasonal allergy / SNOMED CT 8325067798 / Confirmed Seizures / SNOMED CT 334913343 / Confirmed Vomiting / SNOMED CT 8257381393 / Confirmed Histories Past Medical History: Active Autistic disorder (299.0) Mental retardation (759.89) Obsessive compulsive disorder (6799439997) ADHD - Attention deficit disorder with hyperactivity (1312771843) GERD [Gastroesophageal reflux disease] (530.81) HYPERTENSION (997.91) Hiatal hernia (553.3) Seasonal allergy (3717995534) ASTHMA (493) Peptic ulcer disease (8303770651) Family History: No family history items have been selected or recorded. Procedure history: Entire teeth set pulled (0319694908). Social History Social & Psychosocial Habits Alcohol [...] pulses. Impression and Plan Diagnosis Metatarsal fracture (ADD46-WH S92.309A, Working, Medical). Condition: Stable. Counseled: Family, Regarding treatment.[facility] CenterComment on above:Result Comment: Electronically Signed By: Hugo BARBOUR, Landon Jacobs\.br\Date and Time Signed: 11/25/24 12:10 [id number] History of Present illness Narrative* Byron Wiley DPM FACFAS - 11/19/2024 2:40 PM EDT Patient: Rena Bailey : 1985 PCP: Reji Moss MD SUBJECTIVE This is a 39 y.o. male that presents today with caregiver for left foot trauma sustained wazptedyhn89 days ago. He was seen in [place] ER with diagnosis of Lisfranc fracture from [...] left 2nd metatarsal base region Review of [facility] radiology and CT scan reports. XR left [...] above-stated procedure. PATRICK Majano documented in this encounterThe Rehabilitation InstituteLnhcjqlybk17-62-2782 History of Present illness Narrative* Shon Dorman DPM - 11/11/2024 3:00 PM EDT Patient: Rena Bailey : 1985 PCP: Reji Moss MD SUBJECTIVE This is a 39 y.o. male that presents today with caregiver for left foot trauma sustained proximally3 days ago. He was seen in [place] ER with diagnosis of Lisfranc fracture from [...] have x-ray today in office. Will contact [facility] for further course of action once obtained Recommend continue with wheelchair and nonweightbearing at this time Shon Dorman DPM documented in this encounterThe Rehabilitation [id number] History of Present illness Narrative* Eagle Michelle DPM - 07/03/2024 10:45 AM EST Images from the original note were not included. Subjective Patient ID: Rena Bailey is a 39 y.o. male who presents for Toenail Care. HPI HPI Onychomycosis/Toenail Fungus: Rena is a resident of [place]; with severe autism, with associated behavioral abnormalities. [...] understanding. Eagle Michelle DPM documented in this encounterThe Rehabilitation InstituteYuhorwzfyx62-84-1247 History of Present illness Narrative* Eagle Mendiolaher, DPM - 01/01/2024 10:45 AM EDT Images from the original note were not included. Subjective Patient ID: Rena Bailey is a 38 y.o. male who presents for Nail care (Rena Bailey is a 38yoMale patient presents for Nail care. Pt is a resident at [facility]. Severe autism.Brother Stephy and caregiver Rolando). HPI HPI Onychomycosis/Toenail Fungus: Rena is a resident of [place]; with severe autism and profound mental retardation, [...] understanding. Eagle Michelle DPM documented in this encounterThe Rehabilitation InstituteLqukxgllnz68-60-4759 Evaluation + Plan note Future Scheduled Tests Laboratory* CBC w/ Auto Diff 01/01/23 * Comprehensive Metabolic Panel 01/01/23 [facility] Evaluation + Plan note Future Appointments Appointment Date:07/09/2023 08:45:00 AM Scheduled Provider:Diya Mcginnis MD Location:[facility] Appointment Type:[facility] Follow Up Future Scheduled Tests Laboratory* CBC w/ Auto Diff 01/01/23 * Comprehensive Metabolic Panel 01/01/23 [facility] Evaluation note* Diagnosis Dermatophytosis of [...] 2024 9:02amNonverbalacuteAugust 2024 9:02amPsychiatric disorderacuteAugust 2024 9:02am [facility] Work Phone: Evaluation note* Diagnosis Lisfranc dislocation, left, initial encounter- Primary Left foot pain Pain in soft tissues of limb documented in this encounter [facility]* Diagnosis Lisfranc dislocation, left, initial encounter- Primary Dermatophytosis of nail Pain in left toe(s) Pain in right toe(s) documented in this encounter [facility] Narrative No data available for this section [facility] Hospital Discharge instructions No data available for this section [facility] Progress note No data available for this section [facility] Reason for referral (narrative)No reason for referral information availableBlanchard Valley Health System Work Phone: Summary Purpose Family History No [...] section and content) DATE CREATED AUTHOR 06/13/2018 [facility] DATE CREATED AUTHOR AUTHOR'S ORGANIZ ATION 09/29/2021 [facility] DATE CREATED AUTHOR AUTHOR'S ORGANIZ ATION 10/20/2022 [facility] DATE CREATED AUTHOR AUTHOR'S ORGANIZ ATION 12/11/2024 [facility] DATE CREATED AUTHOR AUTHOR'S ORGANIZ ATION 03/08/2025 [facility] EPIC Care Teams (unrecognized sec tion and content) Team MemberRelationshipSpecialtyStart DateEnd Date Uday Quinteros S 08/15/10 Rigo Kevin, [address] [address] 08/15/10 Francisco Del Rio, [address] [address] YvqgtpkmOljdkuojy42/6/20Team MemberRelationshipSpecialtyStart DateEnd Date Uday Quinteros [facility] 08/15/10 Rigo Kevin, [address] [address] 08/15/10 Francisco Del Rio, [address] [address] CxmqwemoXucebleoo34/6/20Team MemberRelationshipSpecialtyStart DateEnd Date Reji Moss MD [facility] [address] [place] [address] PCP - GeneralFamily Medicine01/01/24Team MemberRelationshipSpecialtyStart DateEnd Date Reji Moss MD [address] [place] [address] PCP - GeneralFamily Medicine01/01/24Team MemberRelationshipSpecialtyStart DateEnd Date Reji Moss MD [address] [place] [address] PCP - GeneralFamily Medicine01/01/24Team MemberRelationshipSpecialtyStart DateEnd Date Reji Moss MD [address] [place] [address] PCP - GeneralFamily Medicine01/01/24Team MemberRelationshipSpecialtyStart DateEnd Date Reji Moss MD [address] [place] [address] PCP - GeneralFamily Medicine01/01/24Team MemberRelationshipSpecialtyStart DateEnd Date Reji Moss MD [address] [place] [address] PCP - GeneralFamily Medicine01/01/24Team MemberRelationshipSpecialtyStart DateEnd Date Reji Moss MD [address] [place] [address] PCP - GeneralFamily Medicine01/01/24Team MemberRelationshipSpecialtyStart DateEnd Date Reji Moss MD [address] [place] [address] PCP - GeneralFamily Medicine01/01/24Team MemberRelationshipSpecialtyStart DateEnd Date Reji Moss MD [address] [place] [address] PCP - GeneralFamily Medicine01/01/24Team MemberRelationshipSpecialtyStart DateEnd Date Reji Moss MD [address] [place] [address] PCP - [facility] Medicine01/01/24Team MemberRelationshipSpecialtyStart DateEnd Date Reji Moss MD [address] [place] [address] PCP - [facility]01/01/24 Team Status: Active Member Role Status [...] January 29, 2025 End: January 29, 2025Nicole Atm , DOAttending ProviderActiveStart: January 29, 2025 End: January 29, 2025 Reason for Visit (unrecogniz ed section and content) ReasonCommentsNail careDexter Carson Bailey is a 38yo Male patient presents for Nail care. Pt is a resident at [facility]. Severe autism.Brother Stephy and caregiver MarlenatanyReasonCommentsToenail CareEstablished pt presents today for nail care. Pt is resident [facility]. Brother stephy and caregiver rolando are [...] BE BASED ON THE PRIMARY CLINICAL RECORDS. [facility]. provides no warranty or guarantee of the accuracy or completeness of information in this document.
--- OUTSIDE RECORDS SUMMARY | 2025-04-07 06:38 | XMS_ITS | Clinical Summary ---
Author Organization [facility] Address [address], [address] [place] [address] Care Team Providers Care Product Planner Name Role Phone Reji Platt MD Primary [...] different from the original. Dr [facility] [phone] ProblemNoted DateDiagnosed DateGERD (gastroesophageal reflux disease)07/29/2014 Social History Tobacco UseTypesPacks/DayYears UsedDateSmoking Tobacco: NeverSmokeless Tobacco: Never Tobacco Cessation:Counseling Given: No Alcohol UseStandard Drinks/WeekCommentsNo0 (1 standard drink = 0.6 oz pure alcohol)Sex and Gender InformationValueDate RecordedSex Assigned at BirthNot on fileLegal CetZdaw2406/23/2012 3:34 PM ESTGender IdentityNot on fileSexual OrientationNot on file Last Filed Vital Signs Vital SignReadingTime TakenCommentsBlood Mptgwqax014/7001 10:00 AM EST Gxdzf3564 10:00 AM TUGZhhiwuqlbds72.1 ??C (97 ??F)05/30/2018 9:45 AM EST Respiratory Jfso1308 8:29 PM ESTOxygen Squgbowhrm715%05/30/2018 10:00 AM ESTInhaled Oxygen Concentration--Ijqoph55.7 kg (158 lb)05/30/2018 8:10 AM EST Zltzya383 cm (5' 8.5 )05/30/2018 8:10 AM ESTBody Mass Index23.67005/30/2018 8:10 AM EST Plan of Treatment Not on file Insurance Advance Directives TypeDate RecordedPatient RepresentativeExplanationACP-Advance Directive 03/03/2015 2:19 PM Care Teams Team MemberRelationshipSpecialtyStart DateEnd Date Reji Platt MD PCP - GeneralFamily Medicine01/27/13
--- OUTSIDE RECORDS SUMMARY | 2025-04-07 06:38 | XMS_ITS | Clinical Summary ---
Author Organization [facility] Address [address] [place] [address] Care Team Providers Care Lead Caster Name Role Phone Berylcarolkwesi Uday CodiDixon DDS Unavailable [phone] Rigo Kevin DDS Unavailable [phone] Eliane Francisco DDS Unavailable [phone] Source Comments The following information is NOT included in Care Everywhere downloads:Psychiatric notes, ECG results, Cardiac Rehab notes, Pulmonary Function notes, data from [employer] (includes but not limited toPregnancy data,audiograms, eye exams, pre-surgical evaluation notes, well-child exam data).[facility] Allergies No known active allergies Medications MedicationSigDispense QuantityRefillsLast FilledStart DateEnd DateStatus ibuprofen (MOTRIN) 600 MG tablet Take 1 Tab by mouth every 6 hours as needed for Pain. 30 ctive Immunizations ImmunizationAdministration DatesNext DueDTP (CVX=01)04/02/1990,01/18/1989, 1987DTaP, unspecified formulation (ZJU=921)01/27/1993Hep B (peds/adol, 3- dose) (CVX=08)07/03/1995,01/25/1995,12/21/1994Hib, unspecified formulation (CVX=17)04/02/1990,1987Influenza, injectable, quadrivalent, preservative (CUV=104)03/19/2019,03/07/2017Influenza, injectable, quadrivalent, preservative free (BCW=583)03/09/2021,02/18/2020,02/20/2018,03/04/2015Influenza, injectable, trivalent, preservative (SRO=372)03/13/2006Influenza, novel A6Q3-80, injectable, preservative-free (YMA=830)03/31/2009Influenza, whole virus (CVX=16)03/05/2008 MMR, Hddgbkg-Rvwjw-Rgcxidy (CVX=03)01/03/2000,01/18/1989Pfizer Monovalent (12+ yrs) SARS-COV-2 (COVID-19) vaccine, mRNA, spike protein, LNP, pres. free, 30 mcg/0.3mL dose (DTD=927)06/15/2020,1Polio, inactivated (IPV) (CVX=10) 01/27/1993,04/02/1990,01/18/1989,1987Td (adult), unspecified formulation (IVI=474)01/28/2003Tdap (YRJ=406)01/30/2013 Social History Tobacco UseTypesPacks/DayYears UsedDateSmoking Tobacco: Never AssessedSex and Gender InformationValueDate RecordedSex Assigned at BirthNot on fileLegal Sex Male03/17/2012 12:03 PM ESTGender IdentityNot on fileSexual OrientationNot on file Last Filed Vital Signs Vital SignReadingTime TakenCommentsBlood Qysjpjfb991/3706 5:31 PM EDT Xjjxl9096 5:31 PM MDBRockmypicjs71 ??C (96.8 ??F)10/27/2009 5:17 PM EDT Respiratory Hqsf1049 5:31 PM EDTOxygen Qbbszkwdsf13%10/27/2009 5:31 PM EDTInhaled Oxygen Concentration--Weight--Height--Body Mass Index-- Plan of Treatment Health MaintenanceDue DateLast DoneCommentsHIV Test2002Hepatitis C Tlultptg78/02/2006Hepatitis A (HAV) Vaccine (optional start 19+ years)2006 Annual Wellness Visit (G0438)05/14/2008HPV Vaccine (optional start 27-45 years) 05/15/20145356Qlnhcsgksna23/02/2023Tetanus (Td or Tdap) Hucjaiv74, 01/28/2003COVID-19 Vaccine ( season)/, 06/15/2020, 05/25/2020Influenza Vaccine (#1)/, 02/18/2020, 03/19/2019, Additional history existsShingles (RZV) Vaccine (1 of 2)2037Hepatitis B (HBV) DrdvlwqWbrdkeudx11/20/1996, 01/25/1995, 12/21/1994Tdap BoosterCompleted 01/30/2013Pneumococcal Vaccine(s)Aged OutNo longer eligible based on patient's age to complete this topic Insurance * Guarantor: Brian Bailey TypeRelation to PatientDate of BirthPhone Billing AddressPersonal/MgjikwWzmn36/02/1986 [id number] (Home) [address] [place] [address] [address] [place] [address] * Guarantor: Kassi Baileyccmiriam TypeRelation to PatientDate of BirthPhone Billing AddressDental HkziwaAkqk19/02/1988 [id number] (Home) [address] [place] [address] [address] [place] [address] Care Teams Team MemberRelationshipSpecialtyStart DateEnd Date Uday Quinteros DDS 08/15/10 Rigo Kevin, DDS [address] [place] [address] 08/15/10 Francisco Del Rio DDS [address] [place] [address] RwfgdfdyMyggyjoef18/6/20
--- OUTSIDE RECORDS SUMMARY | 2025-04-07 06:38 | XMS_ITS | Clinical Summary ---
Author Organization [facility] Address [address] [place] [address] Care Team Providers Care Science And Operations Officer Name Role Phone Reji Platt MD Primary [...] CAPSULE BY MOUTH FOUR TIMES A DAY LSLNOM1101/19/2023ctive guaiFENesin (Mucinex) 600 MG 12 hr tablet [...] Problems No known active problems Encounters DateTypeDepartmentCare LeigRqeifejcmeq94/24/2025 9:10 AM EDTProcedure Visit [facility] [address] [place] [address] Byron Velez, DPM FACFAS Lisfranc dislocation, left, initial encounter (Primary Dx); Dermatophytosis of nail; Pain in left toe(s); Pain in right toe(s)03/06/2025amboo flowsheet [facility] [address] [place] [address] Byron Velez, DPM FACFAS 02/11/2025Telephone [facility] [address] [place] [address] Byron Velez, DPStephen FACFAS 01/22/2025bstract [facility] [address] [place] [address] Byron Velez, DPM FACFAS 01/20/2025 9:30 AM EDTAncillary Procedure [facility] [address] [place] [address] 01/20/2025 9:30 AM EDTOffice Visit [facility] [address] [place] [address] Byron Velez, DPM FACFAS Lisfranc dislocation, left, initial encounter (Primary Dx); Left foot pain01/20/2025amboo flowsheet [facility] [address] [place] [address] Byron Velez, DPM FACFAS 01/09/2025Telephone [facility] [address] [facility] [place] [address] Byron Velez, DPM FACFAS from Last 3 Months Social History Tobacco UseTypesPacks/DayYears UsedDateSmoking Tobacco: Never Tobacco Cessation:Counseling Given: Yes Alcohol UseStandard Drinks/WeekCommentsNever0 (1 standard drink = 0.6 oz pure alcohol)Caffeine intake: noneSex and Gender InformationValueDate RecordedSex Assigned at BirthNot on fileLegal JrcIefw5907/26/2022 8:24 PM EDTGender Identity Not on fileSexual OrientationNot on file Last Filed Vital Signs Vital SignReadingTime TakenCommentsBlood Pressure--Pulse--Temperature-- Respiratory Gqoc9168 3:06 PM EDTOxygen Saturation--Inhaled Oxygen Concentration--Yuvrhm44.9 kg (154 lb)03/06/2025 9:25 AM NCOBzqfcr036.3 cm (5' 9 )03/06/2025 9:25 AM EDTBody Mass Index22.7403/06/2025 9:25 AM EDT Plan of Treatment DateTypeDepartmentCare Team (Latest Contact Info)Tytblhsdexn74/20/2026 9:00 AM ESTProcedure Visit [facility] [address] [facility] [place] [address] Byron Velez, DPM FACFAS [address] [place] [address] Health MaintenanceDue DateLast DoneCommentsCOVID-19 Vaccine (2024- season) 51, 06/15/2020, 05/25/2020Influenza VaccineCompleted 03/04/2025, 02/28/2024, 05/08/2023, Additional history existsPneumococcal Vaccine: Pediatrics (0 to 5 Years) and At-Risk Patients (6 to 64 Years)Aged Out No longer eligible based on patient's age to complete this topic Procedures Procedure NamePriorityDate/TimeAssociated DiagnosisCommentsXR FOOT 3+ VIEWS LEFT Xlcsvdj9701/20/2025 9:25 AM EDT Left foot pain Lisfranc [...] alignment fixation intact left Authorizing ProviderResult TypeResult StatusByron WALKERM FACFASIMG XR PROCEDURESFinal Result from Last 3 Months Insurance [address] [place] [address] Care Teams Team MemberRelationshipSpecialtyStart DateEnd Date Reji Platt MD [address] [place] [address] PCP - GeneralFamily Medicine01/01/24
[2025-04-07 07:20] LABS: Hematocrit 42.6 % (42.0-54.0); Hemoglobin 14.0 g/dL (14.0-18.0); Immature Granulocytes Abs Auto 0.00 10^3/uL (0.00-0.03); Immature Granulocytes Pct Auto 0.0 % (0.0-0.5); Lymphocytes Absolute Auto 2.8 10^3/uL (1.2-3.8); Mean Corpuscular HGB Conc 32.9 g/dL (29.9-35.2); Mean Corpuscular Hemoglobin 29.3 pg (25.9-34.0); Mean Corpuscular Volume 89.1 fL (80.0-94.0); Platelet Count 191 10^3/uL (150-450); Red Blood Count 4.78 10^6/uL (4.70-6.10); White Blood Count 5.0 10^3/uL (4.0-11.0)
[2025-04-07 07:35] LABS: Alanine Aminotransferase 12 U/L (16-63); Albumin Globulin Ratio 0.9; Albumin Level 3.4 g/dL (3.4-5.0); Alkaline Phosphatase 130 U/L (46-116); Anion Gap 12.4; Aspartate Amino Transferase 19 U/L (15-37); Blood Urea Nitrogen 12.0 mg/dL (7.0-18.0); Calcium 9.3 mg/dL (8.5-10.1); Carbon Dioxide 30.3 mmol/L (21.0-32.0); Chloride 105 mmol/L (98-107); Estimated GFR (African America >60 (>=60 mL/min/1.73m^2); Estimated GFR (Non-African Ame >60 (>=60 mL/min/1.73m^2); Globulin 3.6 g/dL; Glucose 106 mg/dL (74-106); Potassium 3.7 mmol/L (3.5-5.1); Sodium 144 mmol/L (136-145); Total Protein 7.0 g/dL (6.4-8.2)
== END 2025-04-07 06:36 | disposition home or self-care (01) ==
LOC: LAB 06:35
PROVIDERS: PCP Family Medicine; Visit Provider Family Medicine
DX: Z79.899 Other long term (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 (principal); K21.9 Gastro-esophageal reflux disease without esophagitis; I10 Essential (primary) hypertension; F90.9 Attention-deficit hyperactivity disorder, unspecified type; G40.909 Epilepsy, unspecified, not intractable, without status epilepticus; F42.9 Obsessive-compulsive disorder, unspecified; K27.9 Peptic ulcer, site unspecified, unspecified as acute or chronic, without hemorrhage or perforation; K59.00 Constipation, unspecified; F31.9 Bipolar disorder, unspecified
CPT/HCPCS: 36415; 80053; 85025